=== PATIENT | female | born 1940 | race Two or more races ===

== ENCOUNTER 2017-04-25 09:40 | Inpatient (IN) | payer OTHER ==
[~2017-04-25] VITALS: Ht 154.9 cm; Wt 75.4 kg
[~2017-04-25 09:40] MED LIST: FAM20T PO; GABA-497 PO; HYDR-4663 PO; LISI40TA PO; METF-371 PO; SIMV-13; TRAZ50T PO
[2017-04-25] MEDS ORDERED: SODIUM CHLORIDE 0.9% 1,000 ML IV ONE (10:23)
[2017-04-25] MEDS ORDERED: cefTRIAXone 1GM/50ML D5W 50 ML IV ONE (10:30)
[2017-04-25] MEDS ORDERED: metroNIDAZOLE 500MG/100ML 100 ML IV ONE (10:30)
[2017-04-25 10:52] LABS: Basophils # (auto) 0 uL; Basophils % (auto) 0.2 % (0.0-2.0); CONDITION Y; Eosinophils # (auto) 0.1 uL; Hematocrit 37.2 % (36.0-46.0); Hemoglobin 12.5 g/dL (12.2-16.2); Lymphocytes # (auto) 1.1 uL; Lymphocytes % (auto) 11.9 % (10.0-50.0); Mean Corpuscular Hemoglobin 27.6 pg (28.0-32.0); Mean Corpuscular Hgb Conc. 33.7 g/dL (32.0-36.0); Mean Platelet Volume 8.7 fL (7.4-10.4); Monocytes # (auto) 0.4 uL; Monocytes % (auto) 4.8 % (0.0-12.0); Neutrophils # (auto) 7.3 uL; Neutrophils % (auto) 82.1 % (37.0-80.0); Platelet Count (auto) 264 10^3/uL (140-450); Red Cell Distribution Width 15.8 % (11.6-16.0); White Blood Cell 8.9 10^3/uL (4.4-10.8)
[2017-04-25 11:11] LABS: INR 0.98 (0.9-1.15); Partial Thromboplastin Time 34.9 sec (22.64-33.71); Prothrombin Time 10.7 sec (9.37-12.3)
[2017-04-25 11:15] LABS: Albumin 3.1 g/dL (3.4-5.0); Alkaline Phosphatase 81 U/L (45-117); Anion Gap 11 (5-15); Aspartate Aminotransferase 13 U/L (15-37); BUN/Creatinine Ratio 14.3; Bilirubin, Total 0.2 mg/dL (0.2-1.0); Blood Urea Nitrogen 13 mg/dL (7-18); Carbon Dioxide 19 mmol/L (21-32); Chloride 97 mmol/L (98-107); GFR African American 77 mL/min; GFR Non-African American 64 mL/min; Glucose 313 mg/dL (74-106); Potassium 4.3 mmol/L (3.5-5.1); Sodium 127 mmol/L (136-145); Total Protein 8.5 g/dL (6.4-8.2)
[2017-04-25 11:17] LABS: B-Type Natriuretic Peptide 106.38 pg/mL (0-100)
[2017-04-25 11:29] LABS: Temperature: 23.9 C (20.0-25.0)
[2017-04-25] MEDS ORDERED: MIRT15TA3 PO (12:31)
[2017-04-25] MEDS ORDERED: LOR05T PO (12:31)
[2017-04-25] MEDS ORDERED: FURO40TA4 PO (12:31)
[2017-04-25] MEDS ORDERED: CLO01T PO (12:31)
[2017-04-25] MEDS ORDERED: HYDR-4663 PO (12:31)
[2017-04-25] MEDS ORDERED: LEVO25TA6 PO (12:31)
[2017-04-25] MEDS ORDERED: LISI40TA PO (12:31)
[2017-04-25] MEDS ORDERED: METF-371 PO (12:31)
[2017-04-25] MEDS ORDERED: AML5T PO (12:31)
[2017-04-25] MEDS ORDERED: POTA10TA51 PO (12:31)
[2017-04-25] MEDS ORDERED: GLIP-116 PO (12:31)
[2017-04-25] MEDS ORDERED: LISI-646 PO (12:31)
[2017-04-25] MEDS ORDERED: DULO20CA PO (12:31)
[2017-04-25] MEDS ORDERED: DEXTROSE (50%) 50ML SYRG IV PRN (12:45)
[2017-04-25] MEDS ORDERED: HYDROcodone-ACET 5/325MG TAB PO PRN (12:45)
[2017-04-25] MEDS ORDERED: ONDANSETRON HCL 4 MG/2 ML VIAL IV PRN (12:45)
[2017-04-25] MEDS ORDERED: LEVOTHYROXINE SODIUM 25 MCG TAB PO ONE (13:15)
[2017-04-25] MEDS ORDERED: FAMOTIDINE 20 MG TAB PO ONE (13:15)
[2017-04-25] MEDS ORDERED: amLODIPine BESYLATE 5 MG TAB PO ONE (13:15)
[2017-04-25] MEDS: GABAPENTIN 300 MG CAP PO SCH ×2 (13:55→22:00)
[2017-04-25] MEDS: ENOXAPARIN SOD 40 MG/0.4 ML SYRINGE SC SCH (13:55)
[2017-04-25] MEDS: CLINDAMYCIN 600MG IV 50 ML IV SCH ×2 (13:55→22:01)
[2017-04-25 16:36] VITALS: BP 134/66
[2017-04-25] MEDS: InsuLIN REG 1unit/0.01ml Soln (100units/ml) SC SCH ×2 (17:00→22:01)
[2017-04-25] MEDS ORDERED: MORPHINE SULF INJ 2 MG/ML SYRINGE 1ML IV PRN (17:00)
[2017-04-25] MEDS: SODIUM CHLORIDE 0.9% 1,000 ML IV SCH (18:48)
[2017-04-25] MEDS: ACCU-CHEK COMFORT CURVE STRIP VI SCH ×2 (18:48→22:01)
[2017-04-25 20:00] VITALS: BP 136/69
[2017-04-25] MEDS ORDERED: traZODone HCL 50 MG TAB PO PRN (22:00)
[2017-04-25] MEDS: ATORVASTATIN 20 MG TAB PO SCH (22:01)
[2017-04-25 23:25] VITALS: BP 136/69
[2017-04-26] VITALS (7 sets, daily range): BP systolic 125–154; BP diastolic 63–80
[2017-04-26] MEDS: SODIUM CHLORIDE 0.9% 1,000 ML IV SCH ×2 (03:19→17:46)
[2017-04-26 05:42] LABS: Basophils # (auto) 0 uL; Basophils % (auto) 0.2 % (0.0-2.0); CONDITION Y; Eosinophils # (auto) 0.2 uL; Eosinophils % (auto) 2.3 % (0.0-7.0); Hemoglobin 12.9 g/dL (12.2-16.2); Lymphocytes % (auto) 29.4 % (10.0-50.0); Mean Corpuscular Hemoglobin 28.1 pg (28.0-32.0); Mean Corpuscular Hgb Conc. 33.9 g/dL (32.0-36.0); Mean Corpuscular Volume 82.8 fL (80.0-100.0); Monocytes # (auto) 0.7 uL; Monocytes % (auto) 10.4 % (0.0-12.0); Neutrophils # (auto) 3.8 uL; Neutrophils % (auto) 57.7 % (37.0-80.0); Platelet Count (auto) 262 10^3/uL (140-450); Red Cell Distribution Width 15.6 % (11.6-16.0); White Blood Cell 6.7 10^3/uL (4.4-10.8)
[2017-04-26] MEDS: GABAPENTIN 300 MG CAP PO SCH ×3 (06:00→21:54)
[2017-04-26 06:05] LABS: BUN/Creatinine Ratio 11.8; Calcium 8.4 mg/dL (8.5-10.1)
[2017-04-26] MEDS: CLINDAMYCIN 600MG IV 50 ML IV SCH ×3 (06:15→21:54)
[2017-04-26] MEDS: LEVOTHYROXINE SODIUM 25 MCG TAB PO SCH (06:43)
[2017-04-26] MEDS: ACCU-CHEK COMFORT CURVE STRIP VI SCH ×4 (06:43→21:54)
[2017-04-26] MEDS: InsuLIN REG 1unit/0.01ml Soln (100units/ml) SC SCH ×4 (06:43→21:54)
[2017-04-26 08:51] LABS: Urine Bilirubin Negative (Negative); Urine Blood TRACE /uL (Negative); Urine Color Yellow (Yellow); Urine Glucose Normal (Normal); Urine Ketone TRACE (Negative); Urine Nitrite Negative (Negative); Urine RBC 2 /hpf (0 - 4); Urine Squamous Epithelial Cell FEW /hpf (<5); Urine Urobilinogen Normal (Negative); Urine pH 7.5 (5.0-8.0)
[2017-04-26] MEDS: cefTRIAXone 1GM/50ML D5W 50 ML IV SCH (09:56)
[2017-04-26] MEDS: LISINOPRIL 20 MG TAB PO SCH (09:57)
[2017-04-26] MEDS: ENOXAPARIN SOD 40 MG/0.4 ML SYRINGE SC SCH (09:57)
[2017-04-26] MEDS ORDERED: amLODIPine BESYLATE 5 MG TAB PO SCH (10:00)
[2017-04-26] MEDS ORDERED: LISINOPRIL 20 MG TAB PO SCH (10:00)
[2017-04-26] MEDS: FAMOTIDINE 20 MG TAB PO SCH (10:03)
[2017-04-26] MEDS ORDERED: CLON0.1T PO (18:40)
[2017-04-26] MEDS ORDERED: INSR100KIT IV (18:40)
[2017-04-26] MEDS ORDERED: [UNRECOGNIZED DRUG - CODE] PO (18:40)
[2017-04-26] MEDS: ATORVASTATIN 20 MG TAB PO SCH (21:54)
[2017-04-27 04:52] VITALS: BP 172/83
[2017-04-27] MEDS: CLINDAMYCIN 600MG IV 50 ML IV SCH ×3 (05:32→21:41)
[2017-04-27] MEDS: GABAPENTIN 300 MG CAP PO SCH ×3 (05:32→21:50)
[2017-04-27] MEDS: SODIUM CHLORIDE 0.9% 1,000 ML IV SCH (06:28)
[2017-04-27] MEDS: ACCU-CHEK COMFORT CURVE STRIP VI SCH ×4 (06:46→21:51)
[2017-04-27] MEDS: InsuLIN REG 1unit/0.01ml Soln (100units/ml) SC SCH ×4 (06:46→21:52)
[2017-04-27] MEDS: LEVOTHYROXINE SODIUM 25 MCG TAB PO SCH (06:46)
[2017-04-27 08:00] VITALS: BP 165/86
[2017-04-27 09:00] VITALS: BP 165/86
[2017-04-27] MEDS: cefTRIAXone 1GM/50ML D5W 50 ML IV SCH (10:40)
[2017-04-27] MEDS: FAMOTIDINE 20 MG TAB PO SCH (10:43)
[2017-04-27] MEDS: ENOXAPARIN SOD 40 MG/0.4 ML SYRINGE SC SCH (10:44)
[2017-04-27] MEDS: LISINOPRIL 20 MG TAB PO SCH ×2 (10:44→21:51)
[2017-04-27 13:00] VITALS: BP 149/80
[2017-04-27] MEDS ORDERED: LISINOPRIL 20 MG TAB PO ONE (13:00)
[2017-04-27] MEDS ORDERED: DULoxetine HCL 30 MG CAP PO ONE (13:00)
[2017-04-27] MEDS ORDERED: metFORMIN HYDROCHLORIDE 500 MG TAB PO ONE (13:00)
[2017-04-27] MEDS: metFORMIN HYDROCHLORIDE 500 MG TAB PO SCH (18:06)
[2017-04-27 20:00] VITALS: BP 154/71
[2017-04-27 21:30] VITALS: BP 154/71
[2017-04-27] MEDS: ATORVASTATIN 20 MG TAB PO SCH (21:50)
[2017-04-27] MEDS: DULoxetine HCL 30 MG CAP PO SCH (21:50)
[2017-04-28 05:17] VITALS: BP 174/89
[2017-04-28] MEDS: GABAPENTIN 300 MG CAP PO SCH ×2 (06:00→14:00)
[2017-04-28] MEDS: CLINDAMYCIN 600MG IV 50 ML IV SCH ×2 (06:04→14:44)
[2017-04-28] MEDS: metFORMIN HYDROCHLORIDE 500 MG TAB PO SCH (06:40)
[2017-04-28] MEDS: LEVOTHYROXINE SODIUM 25 MCG TAB PO SCH (06:41)
[2017-04-28] MEDS: InsuLIN REG 1unit/0.01ml Soln (100units/ml) SC SCH ×2 (06:41→12:28)
[2017-04-28] MEDS: ACCU-CHEK COMFORT CURVE STRIP VI SCH ×2 (06:41→11:30)
[2017-04-28 09:00] VITALS: BP 130/74
[2017-04-28] MEDS: FAMOTIDINE 20 MG TAB PO SCH (09:57)
[2017-04-28] MEDS: cefTRIAXone 1GM/50ML D5W 50 ML IV SCH (09:57)
[2017-04-28] MEDS: DULoxetine HCL 30 MG CAP PO SCH (09:58)
[2017-04-28] MEDS: LISINOPRIL 20 MG TAB PO SCH (09:58)
[2017-04-28 13:00] VITALS: BP 152/82
== END 2017-04-28 16:30 | disposition home or self-care (01) | DRG 872 ==
LOC: ER 09:42 → OVERFLOW 09:43 → WEST WING 15:58
PROVIDERS: ADMIT Internal Medicine; ATTEND Internal Medicine
DX: A41.9 Sepsis, unspecified organism (principal); E87.1 Hypo-osmolality and hyponatremia; L03.115 Cellulitis of right lower limb; J98.11 Atelectasis; I50.9 Heart failure, unspecified; E03.9 Hypothyroidism, unspecified; I11.0 Hypertensive heart disease with heart failure; F32.9 Major depressive disorder, single episode, unspecified; F41.9 Anxiety disorder, unspecified; E11.42 Type 2 diabetes mellitus with diabetic polyneuropathy; E11.65 Type 2 diabetes mellitus with hyperglycemia; E86.0 Dehydration; I25.2 Old myocardial infarction; Z79.84 Long term (current) use of oral hypoglycemic drugs; Z79.899 Other long term (current) drug therapy; Z82.49 Family history of ischemic heart disease and other diseases of the circulatory system; Z88.6 Allergy status to analgesic agent; Z88.8 Allergy status to other drugs, medicaments and biological substances
CPT/HCPCS: 36415; 71010; 80048; 80053; 81001; 82962; 83036; 83880; 84443; 84484; 85025; 85610; 85730; 87040; 93005; 93970; 93971; 94761; 96365; 96367; J0696; J1815; J3490

== ENCOUNTER 2017-04-30 00:03 | Emergency (ER) | payer OTHER ==
[~2017-04-30] VITALS: Ht 157.5 cm; Wt 72.6 kg
[~2017-04-30 00:03] MED LIST changes: +AML5T PO; +CLON0.1T PO; +DULO20CA PO; -FAM20T PO; +FURO40TA4 PO; -GABA-497 PO; +GLIP-116 PO; -HYDR-4663 PO; +INSR100KIT IV; +LEVO25TA6 PO; +LOR05T PO; +MIRT15TA3 PO; +POTA10TA51 PO; -SIMV-13; -TRAZ50T PO; +[UNRECOGNIZED DRUG - CODE] PO
[2017-04-30 03:37] VITALS: BP 155/63
[2017-04-30] MEDS ORDERED: metroNIDAZOLE 500 MG TAB PO ONE (03:45)
[2017-04-30] MEDS ORDERED: SODIUM CHLORIDE 0.9% 1,000 ML IV ONE (03:45)
[2017-04-30 04:19] LABS: Basophils # (auto) 0 uL; Basophils % (auto) 0.4 % (0.0-2.0); CONDITION Y; Eosinophils # (auto) 0.2 uL; Hematocrit 38.7 % (36.0-46.0); Hemoglobin 13.2 g/dL (12.2-16.2); Lymphocytes # (auto) 1.8 uL; Lymphocytes % (auto) 28.1 % (10.0-50.0); Mean Corpuscular Hemoglobin 27.8 pg (28.0-32.0); Mean Corpuscular Hgb Conc. 34.1 g/dL (32.0-36.0); Mean Corpuscular Volume 81.6 fL (80.0-100.0); Mean Platelet Volume 7.9 fL (7.4-10.4); Monocytes # (auto) 0.6 uL; Monocytes % (auto) 9.6 % (0.0-12.0); Neutrophils # (auto) 3.8 uL; Neutrophils % (auto) 58.9 % (37.0-80.0); Platelet Count (auto) 356 10^3/uL (140-450); Red Cell Distribution Width 15.2 % (11.6-16.0); White Blood Cell 6.4 10^3/uL (4.4-10.8)
[2017-04-30 04:49] LABS: Albumin 3.4 g/dL (3.4-5.0); BUN/Creatinine Ratio 18.9; Calcium 8.8 mg/dL (8.5-10.1); Potassium 3.7 mmol/L (3.5-5.1)
[2017-04-30 04:50] LABS: Bilirubin, Total 0.2 mg/dL (0.2-1.0); Total Protein 8.8 g/dL (6.4-8.2)
== END 2017-04-30 05:50 | disposition home or self-care (01) ==
LOC: ER 00:12
DX: A09 Infectious gastroenteritis and colitis, unspecified (principal); L03.115 Cellulitis of right lower limb; E11.9 Type 2 diabetes mellitus without complications; I10 Essential (primary) hypertension; Z79.4 Long term (current) use of insulin; Z88.6 Allergy status to analgesic agent; Z88.8 Allergy status to other drugs, medicaments and biological substances
CPT/HCPCS: 36415; 80053; 85025; 94761; 96360

== ENCOUNTER → 2017-08-01 | Outpatient (CLI) | payer OTHER ==
[~2017-08-01] MED LIST changes: -LOR05T PO; +LORA-654 PO
[2017-08-01 07:28] LABS: Urine RBC None Seen /hpf (0 - 4)
[2017-08-01 07:44] LABS: Urine Bilirubin Negative (Negative); Urine Blood Negative /uL (Negative); Urine Color Yellow (Yellow); Urine Glucose Normal (Normal); Urine Ketone Negative (Negative); Urine Nitrite Negative (Negative); Urine Squamous Epithelial Cell FEW /hpf (<5); Urine Urobilinogen Normal (Negative); Urine pH 6.5 (5.0-8.0)
[2017-08-01 07:51] LABS: BUN/Creatinine Ratio 21.7; Calcium 8.6 mg/dL (8.5-10.1); Potassium 4.1 mmol/L (3.5-5.1)
== END | disposition home or self-care (01) ==
LOC: LAB 07:16
PROVIDERS: ATTEND Internal Medicine
DX: I10 Essential (primary) hypertension (principal); E11.9 Type 2 diabetes mellitus without complications; N39.0 Urinary tract infection, site not specified; E03.8 Other specified hypothyroidism
CPT/HCPCS: 36415; 80048; 81001; 83036; 84443

== ENCOUNTER → 2019-02-19 | Outpatient (CLI) | payer OTHER ==
[~2019-02-19] VITALS: Ht 154.9 cm; Wt 73.5 kg
[~2019-02-19] MED LIST changes: +ADENOSINE 62 MG in GIVE UN-DILUTED 0 ML IV ONE; -AML5T PO; -CLON0.1T PO; -DULO20CA PO; +ESCI20TA51 PO; +HYDR25TA4 PO; +INSDRIP SC; -INSR100KIT IV; +LEVEMIR SC; +SIMV-8 PO
[2019-02-19 10:40] VITALS: BP 134/62
== END | disposition home or self-care (01) ==
LOC: XYW 09:08
PROVIDERS: ATTEND Internal Medicine
DX: Z01.818 Encounter for other preprocedural examination (principal); I10 Essential (primary) hypertension
CPT/HCPCS: 78452; 93017; A9500; J0153

== ENCOUNTER → 2019-02-21 | Outpatient (CLI) | payer OTHER ==
[~2019-02-21] MED LIST changes: -ADENOSINE 62 MG in GIVE UN-DILUTED 0 ML IV ONE
== END | disposition home or self-care (01) ==
LOC: XYW 02-19 09:01
PROVIDERS: ATTEND Internal Medicine
DX: Z01.818 Encounter for other preprocedural examination (principal); I11.9 Hypertensive heart disease without heart failure; E11.9 Type 2 diabetes mellitus without complications
CPT/HCPCS: 93306

== ENCOUNTER 2019-04-19 07:41 | Day surgery (SDC) | payer OTHER ==
[2019-04-17 14:45] LABS: Basophils # (auto) 0 uL; Eosinophils # (auto) 0.1 uL; Eosinophils % (auto) 2.5 % (0.0-7.0); Hemoglobin 11.7 g/dL (12.2-16.2); Lymphocytes # (auto) 1.7 uL; Lymphocytes % (auto) 34.7 % (10.0-50.0); Mean Corpuscular Hemoglobin 27.5 pg (28.0-32.0); Mean Corpuscular Hgb Conc. 32.4 g/dL (32.0-36.0); Mean Corpuscular Volume 84.8 fL (80.0-100.0); Monocytes # (auto) 0.4 uL; Monocytes % (auto) 7.8 % (0.0-12.0); Neutrophils # (auto) 2.7 uL; Platelet Count (auto) 220 10^3/uL (140-450); Red Blood Cells 4.24 10^6/uL (4.0-5.20); Red Cell Distribution Width 15.1 % (11.8-14.3); White Blood Cell 4.9 10^3/uL (4.4-10.8)
[2019-04-17 14:54] LABS: INR 0.95 (0.9-1.15); Partial Thromboplastin Time 29.9 sec (23.64-32.05)
[2019-04-17 15:21] LABS: Albumin 3.8 g/dL (3.4-5.0); Calcium 9.1 mg/dL (8.5-10.1); Potassium 4.9 mmol/L (3.5-5.1)
[2019-04-17 15:24] LABS: BUN/Creatinine Ratio 19.7; Bilirubin, Total 0.3 mg/dL (0.2-1.0)
[2019-04-17 15:35] LABS: Urine Bacteria NONE SEEN /hpf (None Seen); Urine Blood Negative /uL (Negative); Urine Specific Gravity 1.008 (1.001-1.035); Urine WBC 7 /hpf (0 - 5)
[~2019-04-19] VITALS: Ht 154.9 cm; Wt 72.1 kg
[~2019-04-19 07:41] MED LIST changes: -FURO40TA4 PO; -GLIP-116 PO; +GLIP10TA9 PO; -LORA-654 PO; +LORA0.5T12 PO; -MIRT15TA3 PO; +MIRT1TAB38 PO; -POTA10TA51 PO
[2019-04-19] MEDS ORDERED: MIDAZOLAM HCL 1MG/1ML-2 ML VIAL ONE (09:30)
[2019-04-19] MEDS ORDERED: LIDOCAINE 2% (LOCAL ANESTH.) PF 5ml SDV ONE (09:31)
[2019-04-19] MEDS ORDERED: ETOMIDATE (2MG/ML) 20ML VIAL IV ONE (09:37)
[2019-04-19] MEDS ORDERED: CIPROFLOXACIN 400MG/200ML 200 ML IV ONE (09:48)
[2019-04-19] MEDS ORDERED: LIDOCAINE 1% (LOCAL ANESTH.) PF 5ml SDV ONE (10:00)
[2019-04-19] MEDS ORDERED: SUCCINYLCHOLINE CHLORIDE 20 MG/ML 10ML VIAL IV ONE (10:00)
[2019-04-19] MEDS ORDERED: ROCURONIUM 10MG/ML 10ML VIAL IV ONE (10:08)
[2019-04-19] MEDS ORDERED: HYDROmorphone HCL 2 MG/ML VL IV PRN (10:15)
[2019-04-19] MEDS ORDERED: ACCU-CHEK COMFORT CURVE STRIP VI ONE (10:15)
[2019-04-19] MEDS ORDERED: NALOXONE HCL 0.4 MG/ML VIAL IV PRN (10:15)
[2019-04-19] MEDS ORDERED: ONDANSETRON HCL 4 MG/2 ML VIAL IV ONE (10:15)
[2019-04-19] MEDS ORDERED: fentaNYL CITRATE 100 MCG/2 ML VL ONE (10:28)
[2019-04-19] MEDS ORDERED: NEOSTIGMINE 1 MG/ML INJ (10mg/10ML VIAL) ONE (10:40)
[2019-04-19] MEDS ORDERED: GLYCOPYRROLATE 0.2 MG/ML 1ML VIAL ONE (10:40)
[2019-04-19] MEDS ORDERED: ESMOLOL HCL 10 ML IV ONE (10:44)
[2019-04-19 12:52] VITALS: BP 137/61
== END 2019-04-19 13:05 | disposition home or self-care (01) ==
LOC: SUR 07:41
PROVIDERS: ATTEND Urology
DX: N32.0 Bladder-neck obstruction (principal); N34.3 Urethral syndrome, unspecified; I10 Essential (primary) hypertension; I25.10 Atherosclerotic heart disease of native coronary artery without angina pectoris; G47.33 Obstructive sleep apnea (adult) (pediatric); K21.9 Gastro-esophageal reflux disease without esophagitis; E11.9 Type 2 diabetes mellitus without complications; E66.8 Other obesity; M19.90 Unspecified osteoarthritis, unspecified site; F32.9 Major depressive disorder, single episode, unspecified; Z96.653 Presence of artificial knee joint, bilateral; Z68.30 Body mass index [BMI] 30.0-30.9, adult; Z79.4 Long term (current) use of insulin; Z79.84 Long term (current) use of oral hypoglycemic drugs; Z88.8 Allergy status to other drugs, medicaments and biological substances; Z79.899 Other long term (current) drug therapy
CPT/HCPCS: 36415; 52276; 71045; 80053; 81001; 82962; 85025; 85610; 85730; 93005; J0330; J0744; J2001; J2250; J3010

== ENCOUNTER → 2019-05-10 | Outpatient (CLI) | payer OTHER | END | disposition home or self-care (01) | LOC: LAB 12:48 | PROVIDERS: ATTEND Urology | DX: N39.0 Urinary tract infection, site not specified (principal) | CPT/HCPCS: 87086 ==

== ENCOUNTER → 2019-09-11 | Outpatient (CLI) | payer OTHER, MEDICARE ==
[2019-09-11 07:56] LABS: Basophils # (auto) 0.1 uL; Basophils % (auto) 1.6 % (0.0-2.0); Eosinophils # (auto) 0.2 uL; Eosinophils % (auto) 4.4 % (0.0-7.0); Hematocrit 36.4 % (36.0-46.0); Hemoglobin 12.1 g/dL (12.2-16.2); Lymphocytes # (auto) 1.2 uL; Lymphocytes % (auto) 32.4 % (10.0-50.0); Mean Corpuscular Hemoglobin 27.9 pg (28.0-32.0); Mean Corpuscular Hgb Conc. 33.1 g/dL (32.0-36.0); Mean Corpuscular Volume 84.2 fL (80.0-100.0); Monocytes # (auto) 0.3 uL; Monocytes % (auto) 8.6 % (0.0-12.0); Platelet Count (auto) 229 10^3/uL (140-450); Red Blood Cells 4.33 10^6/uL (4.0-5.20); Red Cell Distribution Width 14.8 % (11.8-14.3); White Blood Cell 3.8 10^3/uL (4.4-10.8)
[2019-09-11 08:21] LABS: Albumin 3.5 g/dL (3.4-5.0); Calcium 8.8 mg/dL (8.5-10.1)
[2019-09-11 08:29] LABS: BUN/Creatinine Ratio 12.9; Bilirubin, Total 0.3 mg/dL (0.2-1.0)
[2019-09-11 08:48] LABS: Urine Bacteria NONE SEEN /hpf (None Seen); Urine Blood Negative /uL (Negative); Urine Specific Gravity 1.005 (1.001-1.035); Urine WBC 1 /hpf (0 - 5)
== END | disposition home or self-care (01) ==
LOC: LAB 07:25
PROVIDERS: ATTEND Physician Assistant
DX: E11.9 Type 2 diabetes mellitus without complications (principal); E11.40 Type 2 diabetes mellitus with diabetic neuropathy, unspecified; E03.9 Hypothyroidism, unspecified; D63.8 Anemia in other chronic diseases classified elsewhere; E78.5 Hyperlipidemia, unspecified; I10 Essential (primary) hypertension
CPT/HCPCS: 36415; 80053; 80061; 81001; 83036; 84443; 85025

== ENCOUNTER → 2019-09-13 | Outpatient (CLI) | payer OTHER | END | disposition home or self-care (01) | LOC: LAB 10:14 | PROVIDERS: ATTEND Urology | DX: N39.0 Urinary tract infection, site not specified (principal) | CPT/HCPCS: 87086 ==

== ENCOUNTER 2020-06-26 06:10 | Day surgery (SDC) | payer OTHER ==
[2020-06-20 11:58] LABS: Basophils # (auto) 0 10 ^3/uL (0-0.2); Basophils % (auto) 0.6 % (0.0-2.0); Eosinophils # (auto) 0.1 10 ^3/uL (0-0.8); Eosinophils % (auto) 1.9 % (0.0-7.0); Hematocrit 35.7 % (36.0-46.0); Hemoglobin 11.6 g/dL (12.2-16.2); Lymphocytes % (auto) 38.2 % (10.0-50.0); Mean Corpuscular Hemoglobin 27.4 pg (28.0-32.0); Mean Corpuscular Hgb Conc. 32.5 g/dL (32.0-36.0); Mean Corpuscular Volume 84.3 fL (80.0-100.0); Monocytes # (auto) 0.5 10 ^3/uL (0-1.3); Monocytes % (auto) 8.9 % (0.0-12.0); Neutrophils # (auto) 2.7 10 ^3/uL (1.6-8.6); Neutrophils % (auto) 50.4 % (37.0-80.0); Platelet Count (auto) 234 10^3/uL (140-450); Red Blood Cells 4.23 10^6/uL (4.0-5.20); Red Cell Distribution Width 14.8 % (11.8-14.3); White Blood Cell 5.3 10^3/uL (4.4-10.8)
[2020-06-20 12:27] LABS: Potassium 3.8 mmol/L (3.5-5.1)
[2020-06-20 12:28] LABS: Urine Bacteria NONE SEEN /hpf (None Seen); Urine Blood Negative /uL (Negative); Urine WBC 6 /hpf (0 - 5)
[2020-06-20 12:29] LABS: INR 0.97 (0.9-1.15); Partial Thromboplastin Time 28.8 sec (23.0-31.2)
[2020-06-20 12:36] LABS: Albumin 3.6 g/dL (3.4-5.0); Bilirubin, Total 0.2 mg/dL (0.2-1.0); Calcium 9.5 mg/dL (8.5-10.1); Total Protein 8.1 g/dL (6.4-8.2)
[~2020-06-26] VITALS: Ht 157.5 cm; Wt 71.7 kg
[~2020-06-26 06:10] MED LIST changes: +BACL20TA PO; +BET25T PO; +GABA300C10 PO; -LISI40TA PO; +LISI40TA11 PO; -LORA0.5T12 PO; +LORA0.5T20 PO; +ONDA-143 PO; +POTA1TAB61 PO; +PROC10TA2 PO; -[UNRECOGNIZED DRUG - CODE] PO
[2020-06-26] MEDS ORDERED: ceFAZolin 1GM/50ML 50 ML IV ONE (07:01)
[2020-06-26] MEDS ORDERED: MIDAZOLAM HCL 1MG/1ML-2 ML VIAL ONE (07:48)
[2020-06-26] MEDS ORDERED: MEPERIDINE HCL (25 MG/ML) 1ML VIAL ONE (07:48)
[2020-06-26] MEDS ORDERED: fentaNYL CITRATE 100 MCG/2 ML VL ONE (07:48)
[2020-06-26] MEDS ORDERED: DexAMETHasone SOD PHOS 10MG/1ML VIAL INJ ONE (08:23)
[2020-06-26] MEDS ORDERED: ACCU-CHEK COMFORT CURVE STRIP VI ONE (08:45)
[2020-06-26] MEDS ORDERED: ONDANSETRON HCL 4 MG/2 ML VIAL IV PRN (08:45)
[2020-06-26] MEDS ORDERED: MORPHINE SULFATE 4 MG/ML SYR/VIAL IV PRN (08:45)
[2020-06-26] MEDS ORDERED: ePHEDrine SULFATE 50 MG/ML AMP IV PRN (08:45)
[2020-06-26] MEDS ORDERED: LABETALOL HCL 5 MG/ML 4ML SYRINGE IV PRN (08:45)
[2020-06-26] MEDS ORDERED: MIDAZOLAM HCL 1MG/1ML-2 ML VIAL IV PRN (08:45)
[2020-06-26] MEDS ORDERED: PROPOFOL 10 MG/ML 20 ML IV ONE (09:10)
[2020-06-26 09:27] VITALS: BP 174/69
== END 2020-06-26 09:35 | disposition home or self-care (01) ==
LOC: SUR 06:10
PROVIDERS: ATTEND Urology
DX: R32 Unspecified urinary incontinence (principal); E66.9 Obesity, unspecified; E11.9 Type 2 diabetes mellitus without complications; M19.90 Unspecified osteoarthritis, unspecified site; Z20.828 Contact with and (suspected) exposure to other viral communicable diseases; Z90.710 Acquired absence of both cervix and uterus; Z86.718 Personal history of other venous thrombosis and embolism; Z68.28 Body mass index [BMI] 28.0-28.9, adult
CPT/HCPCS: 36415; 51715; 72170; 76000; 80053; 81001; 82962; 85025; 85610; 85730; C1769; J0690; J1100; J2175; J2250; J2704; J3010; J7030; L8606; U0003

== ENCOUNTER → 2020-08-25 | Outpatient (CLI) | payer OTHER ==
[2020-08-25 07:30] LABS: Basophils # (auto) 0 10 ^3/uL (0-0.2); Basophils % (auto) 0.6 % (0.0-2.0); Eosinophils # (auto) 0.1 10 ^3/uL (0-0.8); Eosinophils % (auto) 1.2 % (0.0-7.0); Hematocrit 36.9 % (36.0-46.0); Hemoglobin 11.9 g/dL (12.2-16.2); Lymphocytes # (auto) 1.5 10 ^3/uL (0.4-5.4); Lymphocytes % (auto) 27.1 % (10.0-50.0); Mean Corpuscular Hemoglobin 26.8 pg (28.0-32.0); Mean Corpuscular Hgb Conc. 32.3 g/dL (32.0-36.0); Mean Corpuscular Volume 82.9 fL (80.0-100.0); Monocytes # (auto) 0.4 10 ^3/uL (0-1.3); Monocytes % (auto) 8.2 % (0.0-12.0); Neutrophils # (auto) 3.5 10 ^3/uL (1.6-8.6); Neutrophils % (auto) 62.9 % (37.0-80.0); Platelet Count (auto) 248 10^3/uL (140-450); Red Blood Cells 4.45 10^6/uL (4.0-5.20); Red Cell Distribution Width 14.7 % (11.8-14.3); White Blood Cell 5.5 10^3/uL (4.4-10.8)
[2020-08-25 08:10] LABS: Albumin 3.4 g/dL (3.4-5.0); Potassium 3.9 mmol/L (3.5-5.1)
[2020-08-25 08:15] LABS: BUN/Creatinine Ratio 17.7; Bilirubin, Total 0.4 mg/dL (0.2-1.0)
== END | disposition home or self-care (01) ==
LOC: LAB 07:05
PROVIDERS: ATTEND Physician Assistant
DX: I10 Essential (primary) hypertension (principal); E11.21 Type 2 diabetes mellitus with diabetic nephropathy; E11.42 Type 2 diabetes mellitus with diabetic polyneuropathy; D63.8 Anemia in other chronic diseases classified elsewhere
CPT/HCPCS: 36415; 80053; 80061; 82043; 83036; 85025

== ENCOUNTER → 2020-10-16 | Outpatient (CLI) | payer OTHER | END | disposition home or self-care (01) | LOC: LAB 13:34 | PROVIDERS: ATTEND Urology | DX: N39.0 Urinary tract infection, site not specified (principal) | CPT/HCPCS: 87086; 87088; 87186 ==

== ENCOUNTER → 2021-03-27 | Outpatient (CLI) | payer OTHER, MEDICARE ==
[~2021-03-27] MED LIST changes: +ESCI-34 PO; -ESCI20TA51 PO
[2021-03-27 11:27] LABS: Basophils # (auto) 0 10 ^3/uL (0-0.2); Basophils % (auto) 0.7 % (0.0-2.0); Eosinophils # (auto) 0.1 10 ^3/uL (0-0.8); Eosinophils % (auto) 1.3 % (0.0-7.0); Hematocrit 33.7 % (36.0-46.0); Lymphocytes # (auto) 1.6 10 ^3/uL (0.4-5.4); Lymphocytes % (auto) 29.1 % (10.0-50.0); Mean Corpuscular Hemoglobin 27.3 pg (28.0-32.0); Mean Corpuscular Hgb Conc. 32.8 g/dL (32.0-36.0); Mean Corpuscular Volume 83.3 fL (80.0-100.0); Monocytes # (auto) 0.5 10 ^3/uL (0-1.3); Monocytes % (auto) 8.7 % (0.0-12.0); Neutrophils # (auto) 3.3 10 ^3/uL (1.6-8.6); Neutrophils % (auto) 60.2 % (37.0-80.0); Platelet Count (auto) 226 10^3/uL (140-450); Red Blood Cells 4.04 10^6/uL (4.0-5.20); Red Cell Distribution Width 14.7 % (11.8-14.3); White Blood Cell 5.5 10^3/uL (4.4-10.8)
[2021-03-27 13:29] LABS: Potassium 4.5 mmol/L (3.5-5.1)
[2021-03-27 13:34] LABS: Albumin 3.2 g/dL (3.4-5.0)
[2021-03-27 13:36] LABS: Bilirubin, Total 0.5 mg/dL (0.2-1.0); Total Protein 7.5 g/dL (6.4-8.2)
== END | disposition home or self-care (01) ==
LOC: LAB 10:49
PROVIDERS: ATTEND Nurse Practitioner Family
DX: Z01.812 Encounter for preprocedural laboratory examination (principal); Z01.818 Encounter for other preprocedural examination; I10 Essential (primary) hypertension
CPT/HCPCS: 36415; 80053; 85025

== ENCOUNTER 2021-04-17 07:54 | Inpatient (IN) | payer OTHER ==
[~2021-04-17] VITALS: Ht 157.5 cm; Wt 64.7 kg
[2021-04-17 08:22] LABS: Basophils # (auto) 0 10 ^3/uL (0-0.2); Basophils % (auto) 0.9 % (0.0-2.0); Eosinophils # (auto) 0.1 10 ^3/uL (0-0.8); Eosinophils % (auto) 3.3 % (0.0-7.0); Hematocrit 35.4 % (36.0-46.0); Lymphocytes # (auto) 1.3 10 ^3/uL (0.4-5.4); Lymphocytes % (auto) 29.1 % (10.0-50.0); Mean Corpuscular Hemoglobin 27.8 pg (28.0-32.0); Mean Corpuscular Hgb Conc. 33.8 g/dL (32.0-36.0); Mean Corpuscular Volume 82.3 fL (80.0-100.0); Monocytes # (auto) 0.4 10 ^3/uL (0-1.3); Monocytes % (auto) 8.9 % (0.0-12.0); Neutrophils # (auto) 2.6 10 ^3/uL (1.6-8.6); Neutrophils % (auto) 57.8 % (37.0-80.0); Red Cell Distribution Width 14.8 % (11.8-14.3); White Blood Cell 4.5 10^3/uL (4.4-10.8)
[2021-04-17 08:42] LABS: Albumin 3.6 g/dL (3.4-5.0); Anion Gap 5 (5-15); Blood Urea Nitrogen 12 mg/dL (7-18); Calcium 8.7 mg/dL (8.5-10.1); Carbon Dioxide 27 mmol/L (21-32); Chloride 102 mmol/L (98-107); Glucose 206 mg/dL (74-106); Sodium 134 mmol/L (136-145)
[2021-04-17] MEDS ORDERED: NITROGLYCERIN 0.4 MG SL TAB SL ONE (08:45)
[2021-04-17] MEDS ORDERED: ASPirin 81 mg TAB PO ONE (08:45)
[2021-04-17 08:47] LABS: Alanine Aminotransferase 21 U/L (13-56); Alkaline Phosphatase 78 U/L (45-117); Aspartate Aminotransferase 22 U/L (15-37); BUN/Creatinine Ratio 21.1; Bilirubin, Total 0.4 mg/dL (0.2-1.0); GFR African American 131 mL/min; GFR Non-African American 108 mL/min; Total Protein 8.4 g/dL (6.4-8.2)
[2021-04-17 09:04] LABS: Urine Bacteria NONE SEEN /hpf (None Seen); Urine Blood Negative /uL (Negative); Urine Specific Gravity 1.005 (1.001-1.035); Urine WBC 1 /hpf (0 - 5)
[2021-04-17] MEDS ORDERED: NITROGLYCERIN 0.4 MG SL TAB SL PRN (11:00)
[2021-04-17] MEDS ORDERED: MORPHINE SULF INJ 2 MG/ML SYRINGE 1ML IV PRN (11:00)
[2021-04-17] MEDS ORDERED: traMADol HCL 50 MG TAB PO PRN (11:45)
[2021-04-17] MEDS ORDERED: ACETAMINOPHEN 500 MG TAB PO PRN (11:45)
[2021-04-17] MEDS: SODIUM CHLORIDE 0.9% 1,000 ML IV SCH (11:45)
[2021-04-17] MEDS ORDERED: DEXTROSE (50%) 50ML SYRG IV PRN (11:45)
[2021-04-17] MEDS ORDERED: ONDANSETRON HCL 4 MG/2 ML VIAL IV PRN (11:45)
[2021-04-17] MEDS ORDERED: LACTULOSE 20Gm/30ML SOLN PO PRN (11:45)
[2021-04-17 13:16] VITALS: BP 141/67
[2021-04-17] MEDS ORDERED: IRBE150T49 PO (13:52)
[2021-04-17] MEDS ORDERED: CLON-499 PO (13:54)
[2021-04-17 14:24] VITALS: BP 142/56
[2021-04-17] MEDS: ACCU-CHEK COMFORT CURVE STRIP VI SCH ×2 (17:00→22:19)
[2021-04-17 17:20] VITALS: BP 156/73
[2021-04-17] MEDS: InsuLIN REG 1unit/0.01ml Soln (100units/ml) SC SCH ×2 (17:40→22:00)
[2021-04-17 22:00] VITALS: BP 153/68
[2021-04-17] MEDS ORDERED: ATORVASTATIN 20 MG TAB PO SCH (22:00)
[2021-04-17] MEDS: ATORVASTATIN 20 MG TAB PO SCH (22:17)
[2021-04-18] MEDS: SODIUM CHLORIDE 0.9% 1,000 ML IV SCH (01:05)
[2021-04-18 05:00] VITALS: BP 164/71
[2021-04-18] MEDS: InsuLIN REG 1unit/0.01ml Soln (100units/ml) SC SCH ×4 (06:20→21:38)
[2021-04-18] MEDS: ACCU-CHEK COMFORT CURVE STRIP VI SCH ×4 (06:25→21:28)
[2021-04-18 06:55] LABS: Cholesterol 134 mg/dL (< 200); HDL Cholesterol 53 mg/dL (40-59); LDL Cholesterol 72 mg/dL (< 100); Triglycerides 98 mg/dL (< 150)
[2021-04-18 09:00] VITALS: BP 153/69
[2021-04-18] MEDS: ENOXAPARIN SOD 40 MG/0.4 ML SYRINGE SC SCH (09:47)
[2021-04-18] MEDS: ASPirin 81 mg TAB PO SCH (09:47)
[2021-04-18] MEDS: NITROGLYCERIN 0.2MG/HR TOPICAL PATCH TD SCH (10:00)
[2021-04-18 11:37] LABS: Potassium 3.6 mmol/L (3.5-5.1)
[2021-04-18 11:40] LABS: BUN/Creatinine Ratio 24.5; Calcium 8.8 mg/dL (8.5-10.1); Magnesium 1.8 mg/dL (1.6-2.6)
[2021-04-18 13:00] VITALS: BP 166/70
[2021-04-18] MEDS ORDERED: METOPROLOL TARTRATE 1MG/1ML-5ML VIAL IV ONE (13:15)
[2021-04-18] MEDS ORDERED: NIFEdipine ER 30 MG TAB PO ONE (16:30)
[2021-04-18] MEDS ORDERED: hydrALAZINE HCL 20 MG/ML VL IV ONE (16:45)
[2021-04-18] MEDS ORDERED: hydrALAZINE HCL 20 MG/ML VL IV PRN (17:00)
[2021-04-18 17:36] VITALS: BP 184/81
[2021-04-18] MEDS: ATORVASTATIN 20 MG TAB PO SCH (21:27)
[2021-04-18 22:00] VITALS: BP 139/72
[2021-04-18] MEDS ORDERED: MIRTAZAPINE 30 MG TAB PO SCH (22:00)
[2021-04-18] MEDS ORDERED: LORazepam 0.5 MG TAB PO SCH (22:00)
[2021-04-18] MEDS: hydrALAZINE HCL 25 MG TAB PO SCH (22:07)
[2021-04-19 05:00] VITALS: BP 117/54
[2021-04-19] MEDS: ACCU-CHEK COMFORT CURVE STRIP VI SCH ×2 (06:11→11:47)
[2021-04-19] MEDS: InsuLIN REG 1unit/0.01ml Soln (100units/ml) SC SCH ×2 (06:19→11:46)
[2021-04-19 09:00] VITALS: BP 118/57
[2021-04-19] MEDS ORDERED: NIFE1TAB31 PO (09:16)
[2021-04-19] MEDS: ASPirin 81 mg TAB PO SCH (09:28)
[2021-04-19] MEDS: ENOXAPARIN SOD 40 MG/0.4 ML SYRINGE SC SCH (09:29)
[2021-04-19] MEDS: NITROGLYCERIN 0.2MG/HR TOPICAL PATCH TD SCH (09:30)
[2021-04-19] MEDS: hydrALAZINE HCL 25 MG TAB PO SCH (09:30)
[2021-04-19] MEDS ORDERED: NIFEdipine ER 30 MG TAB PO SCH ×2 (10:00)
[2021-04-19 13:00] VITALS: BP 122/72
[2021-04-19 13:48] VITALS: BP 127/67
== END 2021-04-19 14:40 | disposition home or self-care (01) | DRG 313 ==
LOC: ER 07:54 → TELE 10:46 → TELE-CENTR 12:25
PROVIDERS: ADMIT Internal Medicine; ATTEND Internal Medicine
DX: R07.89 Other chest pain (principal); E87.1 Hypo-osmolality and hyponatremia; D64.9 Anemia, unspecified; E11.65 Type 2 diabetes mellitus with hyperglycemia; E66.9 Obesity, unspecified; E78.5 Hyperlipidemia, unspecified; R00.1 Bradycardia, unspecified; I10 Essential (primary) hypertension; I44.7 Left bundle-branch block, unspecified; Z82.49 Family history of ischemic heart disease and other diseases of the circulatory system; Z90.710 Acquired absence of both cervix and uterus; Z68.20 Body mass index [BMI] 20.0-20.9, adult; Z20.822 Contact with and (suspected) exposure to COVID-19
CPT/HCPCS: 36415; 71045; 80048; 80053; 80061; 81001; 82550; 82607; 82962; 83036; 83735; 83880; 84100; 84443; 84484; 85025; 85049; 85652; 86141; 87426; 93005; 93306; 93886; 96360; G0378; J1815

== ENCOUNTER → 2021-05-15 | Outpatient (CLI) | payer OTHER ==
[~2021-05-15] MED LIST changes: +IRBE150T49 PO; -LISI40TA11 PO; -LORA0.5T20 PO; +NIFE1TAB31 PO; -ONDA-143 PO; -PROC10TA2 PO
[2021-05-15 07:51] LABS: Urine WBC None Seen /hpf (0 - 5)
[2021-05-15 07:58] LABS: Basophils # (auto) 0 10 ^3/uL (0-0.2); Basophils % (auto) 0.8 % (0.0-2.0); Eosinophils # (auto) 0.1 10 ^3/uL (0-0.8); Eosinophils % (auto) 3.2 % (0.0-7.0); Hematocrit 33.7 % (36.0-46.0); Hemoglobin 11.3 g/dL (12.2-16.2); Lymphocytes # (auto) 1.2 10 ^3/uL (0.4-5.4); Lymphocytes % (auto) 25.5 % (10.0-50.0); Mean Corpuscular Hemoglobin 27.9 pg (28.0-32.0); Mean Corpuscular Hgb Conc. 33.5 g/dL (32.0-36.0); Mean Corpuscular Volume 83.1 fL (80.0-100.0); Monocytes # (auto) 0.4 10 ^3/uL (0-1.3); Monocytes % (auto) 8.9 % (0.0-12.0); Neutrophils # (auto) 2.8 10 ^3/uL (1.6-8.6); Neutrophils % (auto) 61.6 % (37.0-80.0); Nucleated Red Blood Cells % 0.1 %; Red Blood Cells 4.05 10^6/uL (4.0-5.20); Red Cell Distribution Width 14.6 % (11.8-14.3); White Blood Cell 4.6 10^3/uL (4.4-10.8)
[2021-05-15 08:02] LABS: Urine Bacteria NONE SEEN /hpf (None Seen); Urine Blood Negative /uL (Negative); Urine Specific Gravity 1.005 (1.001-1.035)
[2021-05-15 08:23] LABS: Albumin 3.4 g/dL (3.4-5.0); Calcium 9.2 mg/dL (8.5-10.1)
[2021-05-15 08:29] LABS: BUN/Creatinine Ratio 25.4; Bilirubin, Total 0.3 mg/dL (0.2-1.0); Total Protein 8.2 g/dL (6.4-8.2)
== END | disposition home or self-care (01) ==
LOC: LAB 07:37
PROVIDERS: ATTEND Student in an Organized Health Care Education/Training Program
DX: E11.9 Type 2 diabetes mellitus without complications (principal); I10 Essential (primary) hypertension; E03.9 Hypothyroidism, unspecified
CPT/HCPCS: 36415; 80053; 80061; 81001; 82043; 83036; 84443; 85025

== ENCOUNTER → 2021-07-15 | Outpatient (CLI) | payer OTHER ==
[2021-07-15 08:05] LABS: Urine Bacteria NONE SEEN /hpf (None Seen); Urine Blood Negative /uL (Negative); Urine Specific Gravity 1.004 (1.001-1.035); Urine WBC 1 /hpf (0 - 5)
[2021-07-15 08:10] LABS: Basophils # (auto) 0 10 ^3/uL (0-0.2); Basophils % (auto) 0.9 % (0.0-2.0); Eosinophils # (auto) 0.2 10 ^3/uL (0-0.8); Eosinophils % (auto) 3.9 % (0.0-7.0); Hematocrit 33.6 % (36.0-46.0); Hemoglobin 11.2 g/dL (12.2-16.2); Lymphocytes # (auto) 1.2 10 ^3/uL (0.4-5.4); Lymphocytes % (auto) 28.5 % (10.0-50.0); Mean Corpuscular Hemoglobin 27.7 pg (28.0-32.0); Mean Corpuscular Hgb Conc. 33.4 g/dL (32.0-36.0); Mean Corpuscular Volume 82.9 fL (80.0-100.0); Monocytes # (auto) 0.3 10 ^3/uL (0-1.3); Monocytes % (auto) 7.8 % (0.0-12.0); Neutrophils # (auto) 2.5 10 ^3/uL (1.6-8.6); Neutrophils % (auto) 58.9 % (37.0-80.0); Red Blood Cells 4.05 10^6/uL (4.0-5.20); Red Cell Distribution Width 14.7 % (11.8-14.3); White Blood Cell 4.3 10^3/uL (4.4-10.8)
[2021-07-15 08:24] LABS: Albumin 3.6 g/dL (3.4-5.0); Calcium 9.1 mg/dL (8.5-10.1); Potassium 3.9 mmol/L (3.5-5.1)
[2021-07-15 08:27] LABS: BUN/Creatinine Ratio 30.6; Bilirubin, Total 0.4 mg/dL (0.2-1.0); Total Protein 7.9 g/dL (6.4-8.2)
== END | disposition home or self-care (01) ==
LOC: LAB 07:30
PROVIDERS: ATTEND Nurse Practitioner Family
DX: E11.42 Type 2 diabetes mellitus with diabetic polyneuropathy (principal); I10 Essential (primary) hypertension; E78.5 Hyperlipidemia, unspecified; E03.9 Hypothyroidism, unspecified
CPT/HCPCS: 36415; 80053; 80061; 81001; 82043; 82607; 83036; 84443; 85025; 87086

== ENCOUNTER 2021-08-19 08:02 | Day surgery (SDC) | payer OTHER, MEDICAID ==
[~2021-08-19] VITALS: Ht 157.5 cm; Wt 67.1 kg
[~2021-08-19 08:02] MED LIST changes: +ASPI-498 PO; -BACL20TA PO; +LORA0.5T20 PO; +OXYB10TA14 PO
[2021-08-19] MEDS ORDERED: fentaNYL CITRATE 100 MCG/2 ML VL ONE (09:40)
[2021-08-19] MEDS ORDERED: SODIUM CHL 0.9% 0 ML ONE (09:40)
[2021-08-19] MEDS ORDERED: ANGIOMAX 250 MG VIAL IV ONE (09:40)
[2021-08-19] MEDS ORDERED: MIDAZOLAM HCL 2MG/2ML 2ml VIAL (1mg/ml) ONE (09:40)
[2021-08-19] MEDS ORDERED: IODIXANOL 320MG/ML 100ML BTL IV ONE (09:41)
[2021-08-19] MEDS ORDERED: HEPARIN SODIUM (PORCINE) 5000 UNITS/ML 1ML VIAL ONE (09:41)
[2021-08-19] MEDS ORDERED: LIDOCAINE 2%HCL (LOCAL ANESTH.) INJ 20ML MDV ONE (09:41)
[2021-08-19] MEDS ORDERED: VERAPAMIL 2.5MG/ML INJ 2ML VIAL IV ONE (09:41)
[2021-08-19] MEDS ORDERED: NIFE1TAB36 PO (11:44)
== END 2021-08-19 14:15 | disposition home or self-care (01) ==
LOC: CATH 08:02
PROVIDERS: ATTEND Internal Medicine
DX: R94.39 Abnormal result of other cardiovascular function study (principal); Z90.710 Acquired absence of both cervix and uterus; Z86.73 Personal history of transient ischemic attack (TIA), and cerebral infarction without residual deficits; Z98.890 Other specified postprocedural states; Z79.899 Other long term (current) drug therapy; Z20.822 Contact with and (suspected) exposure to COVID-19
CPT/HCPCS: 93458; C1769; C1887; C1894; J1644; Q9967; U0003; 99152; J2250

== ENCOUNTER → 2021-09-15 | Outpatient (CLI) | payer OTHER, MEDICAID ==
[~2021-09-15] MED LIST changes: -NIFE1TAB31 PO; +NIFE1TAB36 PO
[2021-09-15 14:37] LABS: Basophils # (auto) 0 10 ^3/uL (0-0.2); Basophils % (auto) 0.8 % (0.0-2.0); Eosinophils # (auto) 0.1 10 ^3/uL (0-0.8); Eosinophils % (auto) 2.6 % (0.0-7.0); Hemoglobin 11.1 g/dL (12.2-16.2); Lymphocytes # (auto) 1.5 10 ^3/uL (0.4-5.4); Lymphocytes % (auto) 34.1 % (10.0-50.0); Mean Corpuscular Hemoglobin 27.4 pg (28.0-32.0); Mean Corpuscular Hgb Conc. 32.6 g/dL (32.0-36.0); Monocytes # (auto) 0.5 10 ^3/uL (0-1.3); Monocytes % (auto) 10.6 % (0.0-12.0); Neutrophils # (auto) 2.3 10 ^3/uL (1.6-8.6); Neutrophils % (auto) 51.9 % (37.0-80.0); Nucleated Red Blood Cells % 0.1 %; Red Blood Cells 4.04 10^6/uL (4.0-5.20); Red Cell Distribution Width 14.1 % (11.8-14.3); White Blood Cell 4.5 10^3/uL (4.4-10.8)
[2021-09-15 14:51] LABS: Urine Blood Negative /uL (Negative); Urine Specific Gravity 1.013 (1.001-1.035)
[2021-09-15 14:56] LABS: INR 1.01 (0.9-1.15); Partial Thromboplastin Time 30.2 sec (23.6-33.0)
[2021-09-15 15:21] LABS: Albumin 3.5 g/dL (3.4-5.0); Calcium 8.5 mg/dL (8.5-10.1); Potassium 4.5 mmol/L (3.5-5.1)
[2021-09-15 15:23] LABS: BUN/Creatinine Ratio 25.4
[2021-09-15 15:36] LABS: Bilirubin, Total 0.2 mg/dL (0.2-1.0); Total Protein 7.3 g/dL (6.4-8.2)
== END | disposition home or self-care (01) ==
LOC: LAB 14:25
PROVIDERS: ATTEND Specialist
DX: Z01.812 Encounter for preprocedural laboratory examination (principal); H25.11 Age-related nuclear cataract, right eye; Z79.01 Long term (current) use of anticoagulants
CPT/HCPCS: 36415; 80053; 81003; 85025; 85610; 85730

== ENCOUNTER → 2021-11-11 | Outpatient (CLI) | payer OTHER, MEDICAID ==
[2021-11-11 11:28] LABS: Basophils # (auto) 0 10 ^3/uL (0-0.2); Basophils % (auto) 1.1 % (0.0-2.0); Eosinophils # (auto) 0.1 10 ^3/uL (0-0.8); Hematocrit 32.7 % (36.0-46.0); Lymphocytes % (auto) 26.2 % (10.0-50.0); Mean Corpuscular Hgb Conc. 33.6 g/dL (32.0-36.0); Mean Corpuscular Volume 83.4 fL (80.0-100.0); Monocytes # (auto) 0.4 10 ^3/uL (0-1.3); Monocytes % (auto) 10.3 % (0.0-12.0); Neutrophils # (auto) 2.2 10 ^3/uL (1.6-8.6); Neutrophils % (auto) 59.4 % (37.0-80.0); Red Blood Cells 3.93 10^6/uL (4.0-5.20); Red Cell Distribution Width 14.3 % (11.8-14.3); White Blood Cell 3.8 10^3/uL (4.4-10.8)
[2021-11-11 11:33] LABS: INR 1.02 (0.9-1.15); Partial Thromboplastin Time 32.5 sec (23.6-33.0); Urine Blood Negative /uL (Negative); Urine Specific Gravity 1.008 (1.001-1.035)
[2021-11-11 11:46] LABS: Potassium 4.2 mmol/L (3.5-5.1)
[2021-11-11 11:55] LABS: BUN/Creatinine Ratio 21.4
[2021-11-11 11:56] LABS: Albumin 3.4 g/dL (3.4-5.0); Bilirubin, Total 0.3 mg/dL (0.2-1.0); Total Protein 7.8 g/dL (6.4-8.2)
== END | disposition home or self-care (01) ==
LOC: LAB 09:10
PROVIDERS: ATTEND Specialist
DX: Z01.812 Encounter for preprocedural laboratory examination (principal); H25.12 Age-related nuclear cataract, left eye; D68.9 Coagulation defect, unspecified; Z79.01 Long term (current) use of anticoagulants
CPT/HCPCS: 36415; 80053; 81003; 85025; 85610; 85730

== ENCOUNTER → 2022-05-27 | Outpatient (CLI) | payer OTHER, MEDICAID ==
[2022-05-27 13:28] LABS: Basophils # (auto) 0 10 ^3/uL (0-0.2); Basophils % (auto) 0.9 % (0.0-2.0); Eosinophils # (auto) 0.1 10 ^3/uL (0-0.8); Lymphocytes # (auto) 1.3 10 ^3/uL (0.4-5.4); Monocytes # (auto) 0.5 10 ^3/uL (0-1.3)
[2022-05-27 13:30] LABS: Eosinophils % (auto) 2.6 % (0.0-7.0); Hematocrit 35.7 % (36.0-46.0); Hemoglobin 11.6 g/dL (12.2-16.2); Lymphocytes % (auto) 26.7 % (10.0-50.0); Mean Corpuscular Hemoglobin 26.8 pg (28.0-32.0); Mean Corpuscular Hgb Conc. 32.6 g/dL (32.0-36.0); Mean Corpuscular Volume 82.3 fL (80.0-100.0); Monocytes % (auto) 9.3 % (0.0-12.0); Neutrophils % (auto) 60.5 % (37.0-80.0); Red Blood Cells 4.33 10^6/uL (4.0-5.20); Red Cell Distribution Width 14.7 % (11.8-14.3)
[2022-05-27 13:39] LABS: INR 0.98 (0.9-1.15); Partial Thromboplastin Time 32.6 sec (24.6-33.4)
[2022-05-27 13:58] LABS: Albumin 3.7 g/dL (3.4-5.0); Potassium 4.3 mmol/L (3.5-5.1)
[2022-05-27 14:02] LABS: BUN/Creatinine Ratio 22.8; Bilirubin, Total 0.3 mg/dL (0.2-1.0); Total Protein 8.4 g/dL (6.4-8.2)
[2022-05-27 14:46] LABS: Urine Bacteria NONE SEEN /hpf (None Seen); Urine Blood Negative /uL (Negative); Urine Specific Gravity 1.006 (1.001-1.035); Urine WBC 1 /hpf (0 - 5)
== END | disposition home or self-care (01) ==
LOC: LAB 13:13
PROVIDERS: ATTEND Obstetrics & Gynecology
DX: M79.89 Other specified soft tissue disorders (principal); Z01.818 Encounter for other preprocedural examination; N39.0 Urinary tract infection, site not specified
CPT/HCPCS: 36415; 80053; 81001; 85025; 85610; 85730; 87086

== ENCOUNTER 2022-05-31 07:33 | Day surgery (SDC) | payer OTHER, MEDICAID ==
[~2022-05-31] VITALS: Ht 152.4 cm; Wt 64.9 kg
[~2022-05-31 07:33] MED LIST changes: -GABA300C10 PO; -GLIP10TA9 PO; -HYDR25TA4 PO; -POTA1TAB61 PO
[2022-05-31] MEDS ORDERED: ROCURONIUM 10MG/ML 10ML VIAL IV ONE (07:34)
[2022-05-31] MEDS ORDERED: ceFAZolin 1GM/50ML 100 ML IV ONE (08:11)
[2022-05-31] MEDS ORDERED: PROPOFOL 10 MG/ML 20 ML IV ONE (08:54)
[2022-05-31] MEDS ORDERED: SODIUM CHLORIDE LOCK 10 ML ONE (08:54)
[2022-05-31] MEDS ORDERED: MIDAZOLAM HCL 2MG/2ML 2ml VIAL (1mg/ml) ONE (08:54)
[2022-05-31] MEDS ORDERED: DexAMETHasone SOD PHOS 10MG/1ML VIAL INJ ONE (08:54)
[2022-05-31] MEDS ORDERED: fentaNYL CITRATE 100 MCG/2 ML VL ONE (08:54)
[2022-05-31] MEDS ORDERED: ONDANSETRON HCL 4 MG/2 ML VIAL ONE (08:54)
[2022-05-31] MEDS ORDERED: SUGAMMADEX 200mg/2ml Vial (100MG/ML) IV ONE (10:33)
[2022-05-31] MEDS ORDERED: LIDOCAINE 1%-Mpf/Epinephrine 1:200,000 ONE (10:56)
[2022-05-31] MEDS ORDERED: ceFAZolin 1GM VL ONE (10:56)
[2022-05-31] MEDS ORDERED: CONJ ESTROGENS 0.625MG/GM VAG CRM 30GM PV ONE (10:57)
[2022-05-31] MEDS ORDERED: BUPIVACAINE 0.5% P/F INJ 10 ML VIAL ONE (10:57)
[2022-05-31] MEDS ORDERED: GELATIN 1 SPONGE SIZE 50 TOP ONE (12:20)
[2022-05-31] MEDS ORDERED: MORPHINE SULFATE 4 MG/ML SYR/VIAL IV PRN (13:15)
[2022-05-31] MEDS ORDERED: ACCU-CHEK COMFORT CURVE STRIP VI ONE (13:15)
[2022-05-31] MEDS ORDERED: KETOROLAC TROMETH 30 MG/ML 1ML VIAL IV ONE (13:15)
[2022-05-31] MEDS ORDERED: HYDROmorphone HCL 2 MG/ML VL/or syr IV PRN (13:15)
[2022-05-31] MEDS ORDERED: METOCLOPRAMIDE HCL 5MG/ml INJ 2ml VIAL IV PRN (13:15)
[2022-05-31 15:04] VITALS: BP 149/73
== END 2022-05-31 15:10 | disposition home or self-care (01) ==
LOC: SUR 07:33
PROVIDERS: ATTEND Obstetrics & Gynecology
DX: N81.6 Rectocele (principal); N81.10 Cystocele, unspecified; N81.5 Vaginal enterocele; N81.89 Other female genital prolapse; I10 Essential (primary) hypertension; E11.9 Type 2 diabetes mellitus without complications; E78.5 Hyperlipidemia, unspecified; E03.9 Hypothyroidism, unspecified; M19.90 Unspecified osteoarthritis, unspecified site; F41.9 Anxiety disorder, unspecified; F32.A Depression, unspecified; Z96.653 Presence of artificial knee joint, bilateral; Z90.710 Acquired absence of both cervix and uterus; Z98.41 Cataract extraction status, right eye; Z98.42 Cataract extraction status, left eye; Z20.822 Contact with and (suspected) exposure to COVID-19; Z82.49 Family history of ischemic heart disease and other diseases of the circulatory system; Z80.0 Family history of malignant neoplasm of digestive organs
CPT/HCPCS: 57106; 57265; 82962; 86850; 86900; 86901; 88305; J0690; J1100; J2001; J2250; J2405; J2704; J3010; U0003; J3490

== ENCOUNTER → 2022-09-06 | Outpatient (CLI) | payer OTHER, MEDICAID ==
[2022-09-06 07:23] LABS: Basophils # (auto) 0 10 ^3/uL (0-0.2); Eosinophils # (auto) 0.1 10 ^3/uL (0-0.8); Hemoglobin 11.5 g/dL (12.2-16.2); Lymphocytes # (auto) 1.4 10 ^3/uL (0.4-5.4); Mean Corpuscular Hemoglobin 26.7 pg (28.0-32.0); Monocytes # (auto) 0.6 10 ^3/uL (0-1.3); White Blood Cell 4.3 10^3/uL (4.4-10.8)
[2022-09-06 07:25] LABS: Basophils % (auto) 0.8 % (0.0-2.0); Eosinophils % (auto) 3.5 % (0.0-7.0); Hematocrit 35.9 % (36.0-46.0); Lymphocytes % (auto) 32.8 % (10.0-50.0); Mean Corpuscular Hgb Conc. 32.1 g/dL (32.0-36.0); Monocytes % (auto) 12.9 % (0.0-12.0); Neutrophils # (auto) 2.2 10 ^3/uL (1.6-8.6); Red Blood Cells 4.33 10^6/uL (4.0-5.20); Red Cell Distribution Width 15.3 % (11.8-14.3)
[2022-09-06 13:15] LABS: Potassium 3.9 mmol/L (3.5-5.1)
[2022-09-06 13:39] LABS: Albumin 3.6 g/dL (3.4-5.0); BUN/Creatinine Ratio 30.4; Bilirubin, Total 0.4 mg/dL (0.2-1.0); Calcium 9.1 mg/dL (8.5-10.1); Total Protein 8.3 g/dL (6.4-8.2)
== END | disposition home or self-care (01) ==
LOC: LAB 07:07
PROVIDERS: ATTEND Nurse Practitioner Family
DX: Z00.00 Encounter for general adult medical examination without abnormal findings (principal); I10 Essential (primary) hypertension; E11.42 Type 2 diabetes mellitus with diabetic polyneuropathy
CPT/HCPCS: 36415; 80053; 80061; 83036; 84443; 85025

== ENCOUNTER 2022-09-27 10:59 | Emergency (ER) | payer OTHER, MEDICAID ==
[~2022-09-27] VITALS: Ht 157.5 cm; Wt 62.5 kg
[2022-09-27 11:42] LABS: Basophils # (auto) 0 10 ^3/uL (0-0.2); Eosinophils # (auto) 0.2 10 ^3/uL (0-0.8); Eosinophils % (auto) 3.5 % (0.0-7.0); Hematocrit 36.5 % (36.0-46.0); Lymphocytes # (auto) 1.2 10 ^3/uL (0.4-5.4); Monocytes # (auto) 0.4 10 ^3/uL (0-1.3); Red Blood Cells 4.43 10^6/uL (4.0-5.20); Red Cell Distribution Width 15.9 % (11.8-14.3); White Blood Cell 4.4 10^3/uL (4.4-10.8)
[2022-09-27 11:44] LABS: Lymphocytes % (auto) 27.4 % (10.0-50.0); Mean Corpuscular Hgb Conc. 32.8 g/dL (32.0-36.0); Mean Corpuscular Volume 82.4 fL (80.0-100.0); Monocytes % (auto) 9.1 % (0.0-12.0); Neutrophils # (auto) 2.6 10 ^3/uL (1.6-8.6)
[2022-09-27 11:59] LABS: Albumin 3.5 g/dL (3.4-5.0); BUN/Creatinine Ratio 25.3; Potassium 4.3 mmol/L (3.5-5.1)
[2022-09-27 12:02] LABS: Bilirubin, Total 0.3 mg/dL (0.2-1.0)
[2022-09-27] MEDS ORDERED: CEPH-510 PO (14:54)
[2022-09-27 15:29] VITALS: BP 142/67
== END 2022-09-27 15:31 | disposition home or self-care (01) ==
LOC: ER 10:59
DX: L03.115 Cellulitis of right lower limb (principal); I10 Essential (primary) hypertension; E11.9 Type 2 diabetes mellitus without complications; E78.5 Hyperlipidemia, unspecified; Z90.710 Acquired absence of both cervix and uterus; Z79.4 Long term (current) use of insulin; Z79.899 Other long term (current) drug therapy; Z79.82 Long term (current) use of aspirin
CPT/HCPCS: 36415; 80053; 84484; 85025; 93971

== ENCOUNTER 2023-04-20 09:43 | Inpatient (IN) | payer OTHER, MEDICAID ==
[~2023-04-20] VITALS: Ht 157.5 cm; Wt 61.4 kg
[~2023-04-20 09:43] MED LIST changes: +CEPH-510 PO; -ESCI-34 PO; +ESCI1TAB37 PO; +LORA-1121 PO; -LORA0.5T20 PO; -SIMV-8 PO; +SIMV20TA20 PO
[2023-04-20 10:41] LABS: Urine Bacteria NONE SEEN /hpf (None Seen); Urine Blood Negative /uL (Negative); Urine Specific Gravity 1.007 (1.001-1.035); Urine WBC 1 /hpf (0 - 5)
[2023-04-20 10:50] LABS: Basophils # (auto) 0 10 ^3/uL (0-0.2); Eosinophils # (auto) 0.1 10 ^3/uL (0-0.8); Hemoglobin 12.2 g/dL (12.2-16.2); Lymphocytes # (auto) 1.5 10 ^3/uL (0.4-5.4); Mean Corpuscular Hemoglobin 26.4 pg (28.0-32.0); Monocytes # (auto) 0.4 10 ^3/uL (0-1.3); Nucleated Red Blood Cells % 0.1 %; Red Blood Cells 4.62 10^6/uL (4.0-5.20)
[2023-04-20 10:52] LABS: Basophils % (auto) 0.6 % (0.0-2.0); Eosinophils % (auto) 1.5 % (0.0-7.0); Hematocrit 38.1 % (36.0-46.0); Lymphocytes % (auto) 24.4 % (10.0-50.0); Mean Corpuscular Hgb Conc. 32.1 g/dL (32.0-36.0); Mean Corpuscular Volume 82.3 fL (80.0-100.0); Monocytes % (auto) 6.8 % (0.0-12.0); Neutrophils # (auto) 4.2 10 ^3/uL (1.6-8.6); Neutrophils % (auto) 66.7 % (37.0-80.0); Red Cell Distribution Width 15.7 % (11.8-14.3); White Blood Cell 6.3 10^3/uL (4.4-10.8)
[2023-04-20 11:28] LABS: Albumin 3.7 g/dL (3.4-5.0); BUN/Creatinine Ratio 21.8 (10.0-20.0); Bilirubin, Total 0.3 mg/dL (0.2-1.0); Calcium 8.9 mg/dL (8.5-10.1); Potassium 4.3 mmol/L (3.5-5.1); Total Protein 8.2 g/dL (6.4-8.2)
[2023-04-20] MEDS ORDERED: MORPHINE SULFATE INJ 2 MG/ml SYRG IV PRN (14:15)
[2023-04-20] MEDS ORDERED: NITROGLYCERIN 0.4 MG SL TAB SL PRN (14:15)
[2023-04-20] MEDS ORDERED: DEXTROSE (50%) 50ML SYRG IV PRN (14:15)
[2023-04-20] MEDS ORDERED: SODIUM CHLORIDE 0.9% 1,000 ML IV ONE (14:30)
[2023-04-20] MEDS ORDERED: LORazepam 0.5 MG TAB PO PRN (14:30)
[2023-04-20 16:38] LABS: INR 1.01 (0.9-1.15); Partial Thromboplastin Time 30.8 SEC (24.5-34.5)
[2023-04-20] MEDS: ACCU-CHEK COMFORT CURVE STRIP VI SCH ×2 (17:22→23:15)
[2023-04-20] MEDS: InsuLIN REG 1unit/0.01ml Soln (100units/ml) SC SCH ×2 (17:28→23:22)
[2023-04-20] MEDS: MIRTAZAPINE 30 MG TAB PO SCH (18:18)
[2023-04-20] MEDS: HYDROcodone-ACET 5/325MG TAB PO PRN (20:55)
[2023-04-20] MEDS: OXYBUTYNIN CHL 5 MG TAB PO SCH (23:22)
[2023-04-20] MEDS: ATORVASTATIN 20 MG TAB PO SCH (23:24)
[2023-04-20] MEDS: BETHANECHOL CHLORIDE 25 MG TAB PO SCH (23:29)
[2023-04-21] MEDS: CITALOPRAM HYDROBR 20 MG TAB PO SCH (06:30)
[2023-04-21] MEDS: LEVOTHYROXINE SODIUM 25 MCG TAB PO SCH (06:30)
[2023-04-21] MEDS: LOSARTAN POTASSIUM 50 MG TAB PO SCH (06:32)
[2023-04-21 06:37] VITALS: BP 153/59
[2023-04-21] MEDS: InsuLIN REG 1unit/0.01ml Soln (100units/ml) SC SCH ×4 (06:43→22:05)
[2023-04-21] MEDS: ACCU-CHEK COMFORT CURVE STRIP VI SCH ×4 (06:45→21:59)
[2023-04-21 06:46] LABS: Basophils # (auto) 0 10 ^3/uL (0-0.2); Eosinophils # (auto) 0.2 10 ^3/uL (0-0.8); Hemoglobin 12.8 g/dL (12.2-16.2); Lymphocytes # (auto) 1.9 10 ^3/uL (0.4-5.4); Monocytes # (auto) 0.5 10 ^3/uL (0-1.3); Neutrophils # (auto) 1.8 10 ^3/uL (1.6-8.6); White Blood Cell 4.4 10^3/uL (4.4-10.8)
[2023-04-21 06:49] LABS: Albumin 3.7 g/dL (3.4-5.0); Potassium 3.8 mmol/L (3.5-5.1)
[2023-04-21 06:50] LABS: Basophils % (auto) 0.6 % (0.0-2.0); Eosinophils % (auto) 4.5 % (0.0-7.0); Lymphocytes % (auto) 42.8 % (10.0-50.0); Mean Corpuscular Hemoglobin 26.9 pg (28.0-32.0); Mean Corpuscular Hgb Conc. 32.7 g/dL (32.0-36.0); Mean Corpuscular Volume 82.2 fL (80.0-100.0); Monocytes % (auto) 11.3 % (0.0-12.0); Neutrophils % (auto) 40.8 % (37.0-80.0); Nucleated Red Blood Cells % 0.1 %; Red Blood Cells 4.75 10^6/uL (4.0-5.20); Red Cell Distribution Width 15.7 % (11.8-14.3)
[2023-04-21 06:57] LABS: BUN/Creatinine Ratio 22.1 (10.0-20.0); Bilirubin, Total 0.3 mg/dL (0.2-1.0); Calcium 9.3 mg/dL (8.5-10.1); Total Protein 8.8 g/dL (6.4-8.2)
[2023-04-21 09:07] VITALS: BP 146/61
[2023-04-21] MEDS: OXYBUTYNIN CHL 5 MG TAB PO SCH ×2 (09:59→21:59)
[2023-04-21] MEDS: FAMOTIDINE 20 MG TAB PO SCH (09:59)
[2023-04-21] MEDS: NIFEdipine ER 30 MG TAB PO SCH (10:00)
[2023-04-21] MEDS ORDERED: ASPirin-EC 81 mg tab PO SCH (10:00)
[2023-04-21] MEDS: HYDROcodone-ACET 5/325MG TAB PO PRN (10:05)
[2023-04-21 12:32] VITALS: BP 160/72
[2023-04-21 13:04] VITALS: BP 142/49
[2023-04-21] MEDS: BETHANECHOL CHLORIDE 25 MG TAB PO SCH ×2 (14:00→21:59)
[2023-04-21 16:07] VITALS: BP 133/58
[2023-04-21] MEDS: MIRTAZAPINE 30 MG TAB PO SCH (17:35)
[2023-04-21] MEDS: ATORVASTATIN 20 MG TAB PO SCH (21:59)
[2023-04-21 22:00] VITALS: BP 141/71
[2023-04-22 05:00] VITALS: BP 134/59
[2023-04-22] MEDS: CITALOPRAM HYDROBR 20 MG TAB PO SCH (05:59)
[2023-04-22] MEDS: BETHANECHOL CHLORIDE 25 MG TAB PO SCH ×3 (06:01→23:12)
[2023-04-22] MEDS: LOSARTAN POTASSIUM 50 MG TAB PO SCH (06:01)
[2023-04-22] MEDS: LEVOTHYROXINE SODIUM 25 MCG TAB PO SCH (06:01)
[2023-04-22] MEDS: HYDROcodone-ACET 5/325MG TAB PO PRN ×2 (06:01→18:44)
[2023-04-22] MEDS: ACCU-CHEK COMFORT CURVE STRIP VI SCH ×4 (06:02→23:13)
[2023-04-22] MEDS: InsuLIN REG 1unit/0.01ml Soln (100units/ml) SC SCH ×4 (06:07→23:20)
[2023-04-22 06:41] LABS: Basophils # (auto) 0 10 ^3/uL (0-0.2); Basophils % (auto) 0.9 % (0.0-2.0); Eosinophils # (auto) 0.2 10 ^3/uL (0-0.8); Eosinophils % (auto) 3.7 % (0.0-7.0); Hematocrit 35.5 % (36.0-46.0); Hemoglobin 11.8 g/dL (12.2-16.2); Lymphocytes # (auto) 1.3 10 ^3/uL (0.4-5.4); Lymphocytes % (auto) 31.3 % (10.0-50.0); Mean Corpuscular Hemoglobin 27.2 pg (28.0-32.0); Mean Corpuscular Hgb Conc. 33.1 g/dL (32.0-36.0); Mean Corpuscular Volume 82.2 fL (80.0-100.0); Monocytes # (auto) 0.4 10 ^3/uL (0-1.3); Monocytes % (auto) 10.3 % (0.0-12.0); Neutrophils # (auto) 2.3 10 ^3/uL (1.6-8.6); Neutrophils % (auto) 53.8 % (37.0-80.0); Nucleated Red Blood Cells % 0.1 %; Red Blood Cells 4.32 10^6/uL (4.0-5.20); Red Cell Distribution Width 15.7 % (11.8-14.3); White Blood Cell 4.3 10^3/uL (4.4-10.8)
[2023-04-22 06:50] LABS: Potassium 3.7 mmol/L (3.5-5.1)
[2023-04-22 07:06] LABS: Albumin 3.2 g/dL (3.4-5.0); BUN/Creatinine Ratio 29.4 (10.0-20.0); Bilirubin, Total 0.4 mg/dL (0.2-1.0); Calcium 8.8 mg/dL (8.5-10.1); Total Protein 7.5 g/dL (6.4-8.2)
[2023-04-22 08:27] VITALS: BP 137/54
[2023-04-22] MEDS: OXYBUTYNIN CHL 5 MG TAB PO SCH ×2 (09:40→23:12)
[2023-04-22] MEDS: FAMOTIDINE 20 MG TAB PO SCH (09:40)
[2023-04-22] MEDS: NIFEdipine ER 30 MG TAB PO SCH (09:41)
[2023-04-22 13:02] VITALS: BP 117/50
[2023-04-22 13:03] VITALS: BP_SYST 91; BP_SYST 92; BP_DIAS 43; BP_DIAS 47
[2023-04-22] MEDS: SODIUM CHLORIDE 0.9% 1,000 ML IV SCH (14:14)
[2023-04-22] MEDS: MIRTAZAPINE 30 MG TAB PO SCH (17:02)
[2023-04-22 22:00] VITALS: BP 126/61
[2023-04-22] MEDS: ATORVASTATIN 20 MG TAB PO SCH (23:12)
[2023-04-23 05:00] VITALS: BP 130/55
[2023-04-23 06:17] LABS: Basophils # (auto) 0 10 ^3/uL (0-0.2); Eosinophils # (auto) 0.2 10 ^3/uL (0-0.8); Eosinophils % (auto) 4.4 % (0.0-7.0); Monocytes # (auto) 0.4 10 ^3/uL (0-1.3); White Blood Cell 3.8 10^3/uL (4.4-10.8)
[2023-04-23 06:19] LABS: Basophils % (auto) 0.8 % (0.0-2.0); Hemoglobin 11.6 g/dL (12.2-16.2); Lymphocytes # (auto) 1.4 10 ^3/uL (0.4-5.4); Mean Corpuscular Hemoglobin 26.7 pg (28.0-32.0); Mean Corpuscular Hgb Conc. 32.3 g/dL (32.0-36.0); Mean Corpuscular Volume 82.6 fL (80.0-100.0); Monocytes % (auto) 10.5 % (0.0-12.0); Neutrophils # (auto) 1.8 10 ^3/uL (1.6-8.6); Neutrophils % (auto) 46.3 % (37.0-80.0); Nucleated Red Blood Cells % 0.2 %; Red Blood Cells 4.36 10^6/uL (4.0-5.20)
[2023-04-23 06:55] LABS: BUN/Creatinine Ratio 31.1 (10.0-20.0); Magnesium 2.2 mg/dL (1.6-2.6); Potassium 3.7 mmol/L (3.5-5.1)
[2023-04-23] MEDS ORDERED: LOSARTAN POTASSIUM 50 MG TAB PO SCH (07:00)
[2023-04-23 07:05] LABS: Calcium 8.4 mg/dL (8.5-10.1)
[2023-04-23] MEDS: CITALOPRAM HYDROBR 20 MG TAB PO SCH (07:05)
[2023-04-23] MEDS: BETHANECHOL CHLORIDE 25 MG TAB PO SCH ×2 (07:05→14:55)
[2023-04-23] MEDS: LEVOTHYROXINE SODIUM 25 MCG TAB PO SCH (07:05)
[2023-04-23] MEDS: ACCU-CHEK COMFORT CURVE STRIP VI SCH ×2 (07:08→11:52)
[2023-04-23] MEDS: InsuLIN REG 1unit/0.01ml Soln (100units/ml) SC SCH ×2 (07:11→12:14)
[2023-04-23 09:00] VITALS: BP 138/63
[2023-04-23] MEDS: FAMOTIDINE 20 MG TAB PO SCH (09:16)
[2023-04-23] MEDS: SODIUM CHLORIDE 0.9% 1,000 ML IV SCH (09:16)
[2023-04-23] MEDS: OXYBUTYNIN CHL 5 MG TAB PO SCH (09:16)
[2023-04-23] MEDS ORDERED: FLUDROCORTISONE ACETATE 0.1 MG TAB PO SCH (10:00)
[2023-04-23] MEDS: NIFEdipine ER 30 MG TAB PO SCH (10:10)
[2023-04-23 13:09] VITALS: BP 127/59
[2023-04-23] MEDS ORDERED: FLUD0.1T2 PO (14:51)
[2023-04-23 15:56] VITALS: BP 138/63
== END 2023-04-23 16:36 | disposition home or self-care (01) | DRG 605 ==
LOC: ER 09:43 → TELE 14:12 → TELE-WESTW 04-21 00:36 → TELE 04-21 02:06 → TELE-WESTW 04-21 04:09
PROVIDERS: ADMIT Internal Medicine; ATTEND Internal Medicine
DX: S01.01XA Laceration without foreign body of scalp, initial encounter (principal); S09.90XA Unspecified injury of head, initial encounter; I10 Essential (primary) hypertension; I95.1 Orthostatic hypotension; E78.5 Hyperlipidemia, unspecified; E86.0 Dehydration; E11.622 Type 2 diabetes mellitus with other skin ulcer; E07.9 Disorder of thyroid, unspecified; F17.200 Nicotine dependence, unspecified, uncomplicated; W18.39XA Other fall on same level, initial encounter; Z90.710 Acquired absence of both cervix and uterus; Z82.49 Family history of ischemic heart disease and other diseases of the circulatory system; Z80.9 Family history of malignant neoplasm, unspecified; Z79.4 Long term (current) use of insulin; Z79.52 Long term (current) use of systemic steroids; Z63.4 Disappearance and death of family member; Z86.73 Personal history of transient ischemic attack (TIA), and cerebral infarction without residual deficits; Y93.89 Activity, other specified; Y92.89 Other specified places as the place of occurrence of the external cause; Y99.8 Other external cause status
CPT/HCPCS: 36415; 70450; 70551; 80048; 80053; 80061; 81001; 82043; 82962; 83036; 83735; 83880; 84443; 84484; 85025; 85610; 85730; 93005; 93017; 93306; 93886; 95819; 97110; 97116; 97163; 97530; G0378; J1815

== ENCOUNTER → 2023-10-05 | Outpatient (CLI) | payer OTHER, MEDICAID ==
[~2023-10-05] MED LIST changes: -ASPI-498 PO; -CEPH-510 PO; +FLUD0.1T2 PO; -IRBE150T49 PO; -LEVEMIR SC
[2023-10-05 07:32] LABS: Basophils # (auto) 0 10 ^3/uL (0-0.2); Eosinophils # (auto) 0.2 10 ^3/uL (0-0.8); Lymphocytes # (auto) 1.6 10 ^3/uL (0.4-5.4); Monocytes # (auto) 0.4 10 ^3/uL (0-1.3); Neutrophils # (auto) 2.7 10 ^3/uL (1.6-8.6); Nucleated Red Blood Cells % 0.1 %
[2023-10-05 07:34] LABS: Basophils % (auto) 0.8 % (0.0-2.0); Eosinophils % (auto) 3.9 % (0.0-7.0); Hematocrit 38.2 % (36.0-46.0); Hemoglobin 12.2 g/dL (12.2-16.2); Lymphocytes % (auto) 32.5 % (10.0-50.0); Mean Corpuscular Hgb Conc. 31.9 g/dL (32.0-36.0); Mean Corpuscular Volume 81.4 fL (80.0-100.0); Monocytes % (auto) 8.8 % (0.0-12.0); Red Blood Cells 4.69 10^6/uL (4.0-5.20); Red Cell Distribution Width 17.4 % (11.8-14.3)
[2023-10-05 08:01] LABS: Alanine Aminotransferase 13 U/L (7-40); Albumin 4.4 g/dL (3.2-4.8); Alkaline Phosphatase 77 U/L (46-116); Anion Gap 5 (5-15); Aspartate Aminotransferase 20 U/L (13-40); BUN/Creatinine Ratio 19.7 (10.0-20.0); Blood Urea Nitrogen 15 mg/dL (9-23); Calcium 9.9 mg/dL (8.5-10.1); Carbon Dioxide 31 mmol/L (20-30); Chloride 104 mmol/L (98-107); Glucose 153 mg/dL (74-106); LDL Cholesterol 75 mg/dL (< 100); Potassium 4.2 mmol/L (3.5-5.1); Sodium 140 mmol/L (136-145); Triglycerides 138 mg/dL (< 150)
[2023-10-05 08:02] LABS: Bilirubin, Total 0.5 mg/dL (0.2-1.0); Cholesterol 151 mg/dL (< 200); HDL Cholesterol 57 mg/dL (40-59); Total Protein 7.6 g/dL (5.7-8.2)
[2023-10-05 08:13] LABS: Creatinine, Urine 12.24 mg/dL (30.0-125.0)
[2023-10-05 08:15] LABS: Micro Albumin < 3.0 mg/L (<30.0)
== END | disposition home or self-care (01) ==
LOC: LAB 06:58
PROVIDERS: ATTEND Nurse Practitioner Family
DX: E11.42 Type 2 diabetes mellitus with diabetic polyneuropathy (principal); F33.9 Major depressive disorder, recurrent, unspecified
CPT/HCPCS: 36415; 80053; 80061; 82043; 82570; 83036; 84439; 84443; 85025

== ENCOUNTER 2024-03-12 17:21 | Emergency (ER) | payer OTHER, MEDICAID ==
[~2024-03-12] VITALS: Ht 157.5 cm; Wt 77.0 kg
[2024-03-12 17:46] LABS: Urine Bacteria None Seen /hpf (None Seen)
[2024-03-12 17:58] LABS: Urine Blood Negative /uL (Negative); Urine Clarity Clear (Clear); Urine Color Colorless (Yellow); Urine Protein, UAD Negative (Negative); Urine Specific Gravity 1.003 (1.001-1.035); Urine Urobilinogen Normal (Negative); Urine WBC 1 /hpf (0 - 5)
[2024-03-12 18:11] LABS: Basophils # (auto) 0 10 ^3/uL (0-0.2); Basophils % (auto) 0.8 % (0.0-2.0); Eosinophils # (auto) 0.2 10 ^3/uL (0-0.8); Eosinophils % (auto) 2.9 % (0.0-7.0); Hematocrit 39.3 % (36.0-46.0); Hemoglobin 12.8 g/dL (12.2-16.2); Lymphocytes # (auto) 2.7 10 ^3/uL (0.4-5.4); Lymphocytes % (auto) 41.2 % (10.0-50.0); Mean Corpuscular Hgb Conc. 32.6 g/dL (32.0-36.0); Monocytes # (auto) 0.6 10 ^3/uL (0-1.3); Monocytes % (auto) 8.6 % (0.0-12.0); Neutrophils % (auto) 46.5 % (37.0-80.0); Nucleated Red Blood Cells % 0.1 %; Red Blood Cells 4.74 10^6/uL (4.0-5.20); Red Cell Distribution Width 15.6 % (11.8-14.3); White Blood Cell 6.5 10^3/uL (4.4-10.8)
[2024-03-12 18:28] LABS: Alanine Aminotransferase 29 U/L (7-40); Albumin 4.5 g/dL (3.2-4.8); Alkaline Phosphatase 66 U/L (46-116); Anion Gap 13 (5-15); Aspartate Aminotransferase 26 U/L (13-40); BUN/Creatinine Ratio 29.7 (10.0-20.0); Bilirubin, Total 0.4 mg/dL (0.2-1.0); Blood Urea Nitrogen 22 mg/dL (9-23); Calcium 10.1 mg/dL (8.7-10.4); Carbon Dioxide 20 mmol/L (20-30); Chloride 101 mmol/L (98-107); Glucose 127 mg/dL (74-106); Magnesium 2.1 mg/dL (1.6-2.6); Potassium 4.3 mmol/L (3.5-5.1); Sodium 134 mmol/L (136-145); Total Protein 7.8 g/dL (5.7-8.2)
[2024-03-12] MEDS: ACETAMINOPHEN 325 MG TAB PO ONE (18:47)
[2024-03-12] MEDS: IBUPROFEN 600 MG TAB PO ONE (18:48)
[2024-03-12] MEDS: ONDANSETRON HCL 4 MG/2 ML VIAL IV ONE (18:50)
[2024-03-12] MEDS: MORPHINE SULFATE 4 MG/ML SYR/VIAL IV ONE (18:58)
[2024-03-12 19:30] VITALS: O2SAT 100
[2024-03-12] MEDS: HYDROCORTISONE SOD SUCC 100 MG/2ML INJ VIAL IV ONE (19:36)
[2024-03-12] MEDS: SODIUM CHLORIDE 0.9% 1,500 ML IV ONE (19:37)
[2024-03-12] MEDS: FAMOTIDINE (10MG/ML) 2ML VL IV ONE (19:37)
[2024-03-12 19:47] VITALS: TEMP 98
[2024-03-12 19:50] VITALS: BP 150/75; PULSE 83; RESP 9; O2SAT 100
[2024-03-12 20:31] LABS: Base Excess 1.5 mmol/L (-2.0-2.0)
[2024-03-12] MEDS ORDERED: LIDO5DIS21 TOP (21:53)
[2024-03-12] MEDS ORDERED: IBUP-1453 PO (21:53)
== END 2024-03-12 22:01 | disposition home or self-care (01) ==
LOC: ER 17:21
DX: F41.0 Panic disorder [episodic paroxysmal anxiety] (principal); F41.9 Anxiety disorder, unspecified; M85.612 Other cyst of bone, left shoulder; G62.9 Polyneuropathy, unspecified; M25.552 Pain in left hip; M25.551 Pain in right hip; M25.562 Pain in left knee; M25.561 Pain in right knee; I10 Essential (primary) hypertension; E11.9 Type 2 diabetes mellitus without complications; E78.5 Hyperlipidemia, unspecified; Z98.890 Other specified postprocedural states
CPT/HCPCS: 36415; 36600; 71045; 73030; 73560; 80053; 81001; 82805; 83036; 83735; 83880; 84484; 85025; 93005; 96361; 96374; 96375; 99285; J1720; J2270; J2405; J3490; J7030; J7040

== ENCOUNTER → 2024-05-09 | Outpatient (CLI) | payer OTHER ==
[~2024-05-09] MED LIST changes: +IBUP-1453 PO; +LIDO5DIS21 TOP
== END | disposition home or self-care (01) ==
LOC: LAB 11:50
PROVIDERS: ATTEND Internal Medicine Gastroenterology
DX: R93.3 Abnormal findings on diagnostic imaging of other parts of digestive tract (principal)
CPT/HCPCS: 82378; 86301

== ENCOUNTER 2024-07-02 08:20 | Day surgery (SDC) | payer OTHER, MEDICAID ==
[2024-06-29 15:09] LABS: Urine Bacteria None Seen /hpf (None Seen)
[2024-06-29 15:14] LABS: Basophils # (auto) 0.1 10 ^3/uL (0-0.2); Basophils % (auto) 0.8 % (0.0-2.0); Eosinophils # (auto) 0.1 10 ^3/uL (0-0.8); Eosinophils % (auto) 1.6 % (0.0-7.0); Hematocrit 40.1 % (36.0-46.0); Hemoglobin 13.3 g/dL (12.2-16.2); Lymphocytes # (auto) 3.1 10 ^3/uL (0.4-5.4); Lymphocytes % (auto) 35.2 % (10.0-50.0); Mean Corpuscular Hemoglobin 27.4 pg (28.0-32.0); Mean Corpuscular Hgb Conc. 33.1 g/dL (32.0-36.0); Mean Corpuscular Volume 82.9 fL (80.0-100.0); Monocytes # (auto) 0.8 10 ^3/uL (0-1.3); Neutrophils # (auto) 4.7 10 ^3/uL (1.6-8.6); Neutrophils % (auto) 53.4 % (37.0-80.0); Platelet Count (auto) 303 10^3/uL (140-450); Red Blood Cells 4.84 10^6/uL (4.0-5.20); White Blood Cell 8.7 10^3/uL (4.4-10.8)
[2024-06-29 15:15] LABS: Urine Blood Negative /uL (Negative); Urine Clarity Clear (Clear); Urine Color Light-Yellow (Yellow); Urine Protein, UAD Negative (Negative); Urine Specific Gravity 1.005 (1.001-1.035); Urine Urobilinogen Normal (Negative); Urine WBC <1 /hpf (0 - 5); Urine pH 7.5 (5.0-9.0)
[2024-06-29 15:35] LABS: INR 1.03 (0.9-1.15); Partial Thromboplastin Time 29.1 SEC (24.5-34.5); Prothrombin Time 10.9 sec (9.3-11.8)
[2024-06-29 15:54] LABS: Alanine Aminotransferase 17 U/L (7-40); Alkaline Phosphatase 87 U/L (46-116); Anion Gap 8 (5-15); Aspartate Aminotransferase 22 U/L (13-40); BUN/Creatinine Ratio 25.3 (10.0-20.0); Blood Urea Nitrogen 21 mg/dL (9-23); Calcium 10.2 mg/dL (8.7-10.4); Carbon Dioxide 25 mmol/L (20-30); Chloride 104 mmol/L (98-107); Glucose 89 mg/dL (74-106); Sodium 137 mmol/L (136-145)
[2024-06-29 15:55] LABS: Albumin 4.7 g/dL (3.2-4.8); Bilirubin, Total 0.5 mg/dL (0.2-1.0); Total Protein 8.4 g/dL (5.7-8.2)
[~2024-07-02] VITALS: Ht 152.4 cm; Wt 57.6 kg
[~2024-07-02 08:20] MED LIST changes: -BET25T PO; +CIPR-173 PO; -OXYB10TA14 PO; +SOLI10TA39 PO
[2024-07-02] MEDS ORDERED: LIDOCAINE W/ EPINEPHRINE 1% 20ML VIAL ONE (09:15)
[2024-07-02] MEDS ORDERED: CONJ ESTROGENS 0.625MG/GM VAG CRM 30GM PV ONE (09:15)
[2024-07-02] MEDS ORDERED: VASOPRESSIN 20 UNIT/ML ONE (09:24)
[2024-07-02] MEDS ORDERED: ceFAZolin 2 GM/D5W100ml 100 ML IV ONE (09:26)
[2024-07-02] MEDS ORDERED: ceFAZolin 1GM VL ONE (09:31)
[2024-07-02] MEDS ORDERED: MIDAZOLAM HCL 2MG/2ML 2ml VIAL (1mg/ml) ONE (10:04)
[2024-07-02] MEDS ORDERED: fentaNYL CITRATE 100 MCG/2 ML VL ONE (10:04)
[2024-07-02] MEDS ORDERED: MEPERIDINE HCL (25 MG/ML) 1ML VIAL ONE (10:04)
[2024-07-02] MEDS ORDERED: DexAMETHasone SOD PHOS 10MG/1ML VIAL INJ ONE (10:17)
[2024-07-02] MEDS ORDERED: PROPOFOL 10 MG/ML 20 ML IV ONE (10:17)
[2024-07-02] MEDS ORDERED: LIDOCAINE 2% JELLY 11ml (GLYDO) ONE (10:46)
[2024-07-02] MEDS ORDERED: ONDANSETRON HCL 4 MG/2 ML VIAL IV ONE (11:15)
[2024-07-02] MEDS ORDERED: HYDROmorphone HCL 2 MG/ML VL/or syr IV PRN (11:15)
[2024-07-02] MEDS ORDERED: MORPHINE SULFATE 4 MG/ML SYR/VIAL IV PRN (11:15)
[2024-07-02] MEDS ORDERED: MIDAZOLAM HCL 2MG/2ML 2ml VIAL (1mg/ml) IV PRN (11:15)
[2024-07-02] MEDS ORDERED: ePHEDrine SULFATE 50 MG/ML AMP IV PRN (11:15)
[2024-07-02] MEDS ORDERED: hydrALAZINE HCL 20 MG/ML VL IV PRN (11:15)
[2024-07-02] MEDS ORDERED: KETOROLAC TROMETH 30 MG/ML 1ML VIAL ONE (12:15)
[2024-07-02 12:29] VITALS: O2SAT 96
[2024-07-02 12:30] VITALS: TEMP 97.8
[2024-07-02] MEDS ORDERED: ONDANSETRON HCL 4 MG/2 ML VIAL IV PRN (12:30)
[2024-07-02 13:30] VITALS: BP 140/59; PULSE 80; RESP 13; O2SAT 93
== END 2024-07-02 13:48 | disposition home or self-care (01) ==
LOC: SUR 08:20
PROVIDERS: ATTEND Obstetrics & Gynecology
DX: N39.3 Stress incontinence (female) (male) (principal); N81.10 Cystocele, unspecified; N81.6 Rectocele; E11.9 Type 2 diabetes mellitus without complications; E03.9 Hypothyroidism, unspecified; I25.10 Atherosclerotic heart disease of native coronary artery without angina pectoris; I10 Essential (primary) hypertension; E78.5 Hyperlipidemia, unspecified; F41.9 Anxiety disorder, unspecified; Z79.890 Hormone replacement therapy; Z79.84 Long term (current) use of oral hypoglycemic drugs; Z79.4 Long term (current) use of insulin; Z91.040 Latex allergy status; Z90.710 Acquired absence of both cervix and uterus; Z80.8 Family history of malignant neoplasm of other organs or systems; Z82.49 Family history of ischemic heart disease and other diseases of the circulatory system
CPT/HCPCS: 36415; 57135; 57260; 57288; 80053; 81001; 82962; 85025; 85610; 85730; 87086; 88305; C1771; J1100; J1885; J2175; J2250; J2704; J3010; Q4180; J0690

== ENCOUNTER → 2024-07-19 | Outpatient (CLI) | payer OTHER, MEDICAID ==
[2024-07-19 14:40] LABS: Creatinine, Urine 35.77 mg/dL (30.0-125.0)
== END | disposition home or self-care (01) ==
LOC: LAB 13:36
PROVIDERS: ATTEND Nurse Practitioner Family
DX: E11.618 Type 2 diabetes mellitus with other diabetic arthropathy (principal)
CPT/HCPCS: 36415; 82043; 82570

== ENCOUNTER → 2024-10-19 | Outpatient (CLI) | payer OTHER, MEDICAID ==
[2024-10-19 07:31] LABS: Basophils # (auto) 0 10 ^3/uL (0-0.2); Eosinophils # (auto) 0.2 10 ^3/uL (0-0.8); Hemoglobin 11.9 g/dL (12.2-16.2); Lymphocytes # (auto) 1.4 10 ^3/uL (0.4-5.4); Monocytes # (auto) 0.6 10 ^3/uL (0-1.3); Neutrophils # (auto) 3.1 10 ^3/uL (1.6-8.6); Neutrophils % (auto) 57.9 % (37.0-80.0)
[2024-10-19 07:33] LABS: Basophils % (auto) 0.7 % (0.0-2.0); Eosinophils % (auto) 3.6 % (0.0-7.0); Hematocrit 37.3 % (36.0-46.0); Lymphocytes % (auto) 26.9 % (10.0-50.0); Mean Corpuscular Hemoglobin 25.6 pg (28.0-32.0); Mean Corpuscular Volume 79.8 fL (80.0-100.0); Monocytes % (auto) 10.9 % (0.0-12.0); Platelet Count (auto) 238 10^3/uL (140-450); Red Blood Cells 4.67 10^6/uL (4.0-5.20); Red Cell Distribution Width 16.8 % (11.8-14.3); White Blood Cell 5.3 10^3/uL (4.4-10.8)
[2024-10-19 07:40] LABS: Alanine Aminotransferase 13 U/L (7-40); Albumin 4.3 g/dL (3.2-4.8); Alkaline Phosphatase 83 U/L (46-116); Anion Gap 5 (5-15); Aspartate Aminotransferase 21 U/L (13-40); Bilirubin, Total 0.3 mg/dL (0.2-1.0); Blood Urea Nitrogen 18 mg/dL (9-23); Calcium 9.9 mg/dL (8.7-10.4); Carbon Dioxide 29 mmol/L (20-31); Chloride 106 mmol/L (98-107); Cholesterol 142 mg/dL (< 200); LDL Cholesterol 58 mg/dL (< 100); Potassium 4.2 mmol/L (3.5-5.1); Sodium 140 mmol/L (136-145); Triglycerides 114 mg/dL (< 150)
[2024-10-19 07:41] LABS: Total Protein 7.6 g/dL (5.7-8.2)
[2024-10-19 07:48] LABS: Glucose 159 mg/dL (74-106); HDL Cholesterol 67 mg/dL (40-59)
[2024-10-19 07:56] LABS: Creatinine, Urine 29.64 mg/dL (30.0-125.0)
[2024-10-19 08:08] LABS: Micro Albumin < 3.0 mg/L (<30.0)
== END | disposition home or self-care (01) ==
LOC: LAB 06:55
PROVIDERS: ATTEND Nurse Practitioner Family
DX: I10 Essential (primary) hypertension (principal); E11.42 Type 2 diabetes mellitus with diabetic polyneuropathy
CPT/HCPCS: 36415; 80053; 80061; 82043; 82570; 83036; 84443; 85025

== ENCOUNTER 2024-12-04 16:32 | Inpatient (IN) | payer OTHER, MEDICAID ==
[~2024-12-04] VITALS: Ht 152.4 cm; Wt 51.1 kg
--- NOTE | 2024-12-04 17:34 | ED.PDOC ---
HPI (NEURO) HPI Comments 84-year-old female with a history of TIA, hypertension, diabetes, hyperlipidemia and thyroid disease transferred from [facility] for evaluation of possible TIA. Patient was brought in by ambulance to [facility] after being found at home with altered mental status. Findings at [facility] included upward gaze, left-sided facial droop, left upper and lower extremity weakness. Patient was reportedly last known well around 4:00 a.m., then found with altered mental status at around 8:40 a.m. by daughter, and was complaining of chest pain and shortness a breath. Patient underwent extensive workup at [facility] including comprehensive labs which were essentially unremarkable, CT angio head and neck, CT perfusion brain scan with contrast, and CT angio chest which were unremarkable. On arrival to the ER. Patient is alert, oriented x4, denies any current vision changes, weakness or dizziness. Chief Complaint: ALOC Time Seen by MD: 17:10 Primary Care Provider: UNKNOWN Information Source: Patient, Emergency Med Personnel Mode of Arrival: EMS Past Medical History PAST MEDICAL HISTORY: DM, High Lipids, HTN, Thyroid Past Medical History (Other): TIA Surgical History: Hernia Repair, Hysterectomy Surgical History (Other): Cataract surgery, lens implant, bilateral knee replacement BEVELER History: No Pertinent BEVELER History Family History Family History: Reviewed,noncontributory to illness Social History Smoker: Non-Smoker Alcohol: Denies ETOH Use Drugs: Denies Drug Use Lives In: Home All Other Systems: Reviewed and Negative (Comprehensive systems review obtained and negative except for what is stated in the HPI.) Physical Exam General Appearance: No Apparent Distress HEENT: PERRL/EOMI, Other (No facial asymmetry. Moist mucous membranes.) Neck: Full Range of Motion, Normal Inspection Respiratory: Lungs Clear, No Accessory Muscle Use, No Respiratory Distress, Normal Breath Sounds Cardiovascular: No Edema, No JVD, Regular Rate/Rhythm Breast Exam: Deferred Gastrointestinal: Non Tender, Soft Genitalia: Deferred Pelvic: Deferred Rectal: Deferred Extremities: Normal inspection, Normal range of motion, Non-tender, No pedal edema Neurologic: Alert (Oriented x4), No Motor Deficits, Normal Affect, Normal Mood, Other (Pronator drift test could not be performed. Patient states she can not raise her arms due to shoulder pain. No gross focal deficit.) Cerebellar Function: NOT DONE Reflexes: NOT DONE Skin: Dry, Normal Color, Warm Lymphatic: NOT DONE Was a procedure done? Was a procedure done?: No Differential Diagnosis (SZ) Seizure: CVA/TIA, Hypoglycemia, Idiopathic General Weakness: Encephalopathy, Myasthenia gravis Headache: Migraine X-Ray, Labs, Meds, VS Vital Signs Date Time Temp Pulse Resp B/P (MAP) Pulse Ox O2 Delivery O2 Flow Rate FiO2 12/04/24 18:51 58 12/04/24 18:43 57 11 157/63 (94) 96 12/04/24 18:37 57 11 93 Room Air* 0 21 12/04/24 17:15 97.5 57 11 136/58 (84) 93 97.5 12/04/24 16:45 98.1 62 16 175/76 (109) 95 Lab Test 12/04/24 18:05 Range/Units Urine Color Light-yellow Yellow Urine Clarity Clear Clear Urine pH 7.5 5.0-9.0 Urine Specific [place] 1.039 H 1.001-1.035 Urine Protein Negative Negative Urine Ketones Negative Negative Urine Blood Negative Negative /uL Urine Nitrite Negative Negative Urine Bilirubin Negative Negative Urine Urobilinogen Normal Negative mg/dL Urine Leukocyte Esterase Negative Negative /uL Urine RBC 1 0 - 4 /hpf Urine Microscopic WBC 1 0-5 /HPF Urine Squamous Epithelial Cells Few <5 /hpf Urine Bacteria None seen None Seen /hpf Urine Glucose 4+ H Normal mg/dL X-Ray, Labs, Meds, VS Comment 84-year-old female with a history of TIA, diabetes, hypertension, hyperlipidemia and thyroid disease transferred from [facility] for evaluation of transient focal neurologic findings in altered mental status Vitals remarkable for BP 175/76 Exam unremarkable Rhythm strip independently interpreted by me: Sinus rhythm, rate 62, no ectopy. Plan is to admit the patient for brain MRI and Neurology evaluation. Time of 1ST Reevaluation: 17:31 Reevaluation 1ST: Unchanged Patient Education/Counseling: Diagnosis, Treatment Family Education/Counseling: No Family Present Departure 1 Departure Time of Disposition: 17:31 Impression: Primary Impression: TRANSIENT CEREBRAL ISCHEMIC ATTACK, UNSPECIFIED Disposition: 09 ADMITTED INPATIENT Admit to: [facility] Condition: Guarded Critical Care Note Critical Care Time?: No Stability Stability form required: No Heart Score Heart Score: Heart Score Response (Comments) Value History N/A 0 EKG N/A 0 Age N/A 0 Risk Factors N/A 0 Troponin N/A 0 Total 0 I personally scribed for CORETTA KLINE MD ([email or web address]) on 12/04/24 at 17:46. Electronically submitted by Irene Barrett ([email or web address]). I personally scribed for CORETTA KLINE MD ([email or web address]) on 12/04/24 at 19:21. Electronically submitted by Marleen Figueroa ([email or web address]). CORETTA KLINE MD Dec 04, 2024 17:34
[2024-12-04 18:07] LABS: Urine Bacteria None Seen /hpf (None Seen)
[2024-12-04 18:37] VITALS: PULSE 57; RESP 11; O2SAT 93
[2024-12-04 18:48] LABS: Urine Blood Negative /uL (Negative); Urine Clarity Clear (Clear); Urine Color Light-Yellow (Yellow); Urine Protein, UAD Negative (Negative); Urine Specific Gravity 1.039 (1.001-1.035); Urine Squamous Epithelial Cell FEW /hpf (<5); Urine Urobilinogen Normal (Negative); Urine WBC 1 /HPF (0-5); Urine pH 7.5 (5.0-9.0)
[2024-12-04 19:57] VITALS: PULSE 64; RESP 18; O2SAT 92
[2024-12-04 20:28] LABS: Basophils # (auto) 0.1 10 ^3/uL (0-0.2); Eosinophils # (auto) 0.2 10 ^3/uL (0-0.8); Eosinophils % (auto) 3.3 % (0.0-7.0); Hematocrit 37.4 % (36.0-46.0); Hemoglobin 12.2 g/dL (12.2-16.2); Lymphocytes # (auto) 2.1 10 ^3/uL (0.4-5.4); Lymphocytes % (auto) 37.2 % (10.0-50.0); Mean Corpuscular Hemoglobin 26.3 pg (28.0-32.0); Mean Corpuscular Hgb Conc. 32.5 g/dL (32.0-36.0); Mean Corpuscular Volume 80.9 fL (80.0-100.0); Monocytes # (auto) 0.5 10 ^3/uL (0-1.3); Monocytes % (auto) 8.9 % (0.0-12.0); Neutrophils # (auto) 2.8 10 ^3/uL (1.6-8.6); Neutrophils % (auto) 49.6 % (37.0-80.0); Nucleated Red Blood Cells % 0.1 %; Platelet Count (auto) 270 10^3/uL (140-450); Red Blood Cells 4.62 10^6/uL (4.0-5.20); Red Cell Distribution Width 18.7 % (11.8-14.3); White Blood Cell 5.8 10^3/uL (4.4-10.8)
[2024-12-04 20:40] LABS: Alanine Aminotransferase 22 U/L (7-40); Albumin 3.9 g/dL (3.2-4.8); Alkaline Phosphatase 65 U/L (46-116); Anion Gap 9 (5-15); Aspartate Aminotransferase 19 U/L (13-40); BUN/Creatinine Ratio 18.2 (10.0-20.0); Bilirubin, Total 0.3 mg/dL (0.2-1.0); Blood Urea Nitrogen 14 mg/dL (9-23); Calcium 9.2 mg/dL (8.7-10.4); Carbon Dioxide 26 mmol/L (20-31); Chloride 105 mmol/L (98-107); Potassium 4.2 mmol/L (3.5-5.1); Sodium 140 mmol/L (136-145)
[2024-12-04 20:41] LABS: Total Protein 6.3 g/dL (5.7-8.2)
[2024-12-04 20:43] LABS: Glucose 199 mg/dL (74-106)
[2024-12-04] MEDS: ATORVASTATIN 20 MG TAB PO SCH (22:37)
--- NOTE | 2024-12-04 23:26 | DVHHP2 ---
History of Present Illness Reason for Visit: Generalized weakness History of Present Illness 84-year-old female presents for evaluation of generalized weakness. Patient transferred from [facility] for continuity of care and disposition. Patient presents to outside facility with complaints of altered mental status and left-sided weakness. Patient was noted by daughter who was at the bedside to be progressively more lethargic since the morning today. She tried to assist the patient to her feet and noticed she had no strength in her upper or lower extremities. No slurred speech. Patient reports she felt weaker on her left side. Currently assessment and shows no focal neurologic deficits. She is alert and oriented x4. She does report feeling fatigued. Past Medical History Hypertension, thyroid, diabetes mellitus and dyslipidemia Past Surgical History Hysterectomy, cataract surgery, knee replacement and hernia repair Family History Noncontributory Smoke: No ALCOHOL: none Drugs: None Lives: with Family Review of Systems Review of Systems Review of systems are currently negative otherwise addressed in HPI. Allergies: Coded Allergies: Latex (Verified Adverse Reaction, Mild, Rash/itchiness, 06/29/24) Pt stated this was catheter related Medications Current Medications Medications Dose Ordered Sig/Shawna Route Start Time Stop Time Status Last Admin Dose Admin Nifedipine 30 mg DAILY PO 12/05/24 10:00 Levothyroxine Sodium 25 mcg QAM@0600 PO 12/05/24 06:00 Atorvastatin Calcium 20 mg HS PO 12/04/24 22:00 12/04/24 22:37 20 MG Aspirin 81 mg DAILY PO 12/05/24 10:00 Empaglifozin 10 mg DAILY PO 12/05/24 10:00 Exam Vital Signs Vital Signs Date Time Temp Pulse Resp B/P (MAP) Pulse Ox O2 Delivery O2 Flow Rate FiO2 12/04/24 18:51 58 12/04/24 18:43 11 157/63 (94) 96 12/04/24 18:37 Room Air* 0 21 12/04/24 17:15 97.5 97.5 Exam Gen: 84-year-old female in no apparent distress Skin: Warm, dry, normal color and texture, no rash. HEENT: Normocephalic atraumatic, mucous membranes moist and pink. Neck: Cervical and supraclavicular nodes normal without enlargement, trachea is midline, thyroid gland is normal without masses. Pulmonary: Clear to auscultation and percussion bilaterally. Cardiac: Regular rate and rhythm. No murmur Abdomen: Soft, nontender, nondistended, bowel sounds present all 4 quadrants, no guarding, no rigidity, no organomegaly. Extremities: No cyanosis, clubbing, no edema Neuro: Cranial nerves II through XII grossly intact, normal affect and speech, no focal motor deficits. Labs/Xrays Test 12/04/24 19:57 12/04/24 18:05 Range/Units White Blood Count 5.8 4.4-10.8 10^3/uL Red Blood Count 4.62 4.0-5.20 10^6/uL Hemoglobin 12.2 12.2-16.2 g/dL Hematocrit 37.4 36.0-46.0 % Mean Corpuscular Volume 80.9 80.0-100.0 fL Mean Corpuscular Hemoglobin 26.3 L 28.0-32.0 pg Mean Corpuscular Hemoglobin Concent 32.5 32.0-36.0 g/dL Red Cell Distribution Width 18.7 H 11.8-14.3 % Platelet Count 270 140-450 10^3/uL Mean Platelet Volume 8.1 6.9-10.8 fL Neutrophils (%) (Auto) 49.6 37.0-80.0 % Lymphocytes (%) (Auto) 37.2 10.0-50.0 % Monocytes (%) (Auto) 8.9 0.0-12.0 % Eosinophils (%) (Auto) 3.3 0.0-7.0 % Basophils (%) (Auto) 1.0 0.0-2.0 % Neutrophils # (Auto) 2.8 1.6-8.6 10 ^3/uL Lymphocytes # (Auto) 2.1 0.4-5.4 10 ^3/uL Monocytes # (Auto) 0.5 0-1.3 10 ^3/uL Eosinophils # (Auto) 0.2 0-0.8 10 ^3/uL Basophils # (Auto) 0.1 0-0.2 10 ^3/uL Nucleated Red Blood Cells 0.1 % Sodium Level 140 136-145 mmol/L Potassium Level 4.2 3.5-5.1 mmol/L Chloride Level 105 98-107 mmol/L Carbon Dioxide Level 26 20-31 mmol/L Anion Gap 9 5-15 Blood Urea Nitrogen 14 9-23 mg/dL Creatinine 0.77 0.550-1.02 mg/dL Glomerular Filtration Rate Calc 76 >90 mL/min BUN/Creatinine Ratio 18.2 10.0-20.0 Serum Glucose 199 H 74-106 mg/dL Calcium Level 9.2 8.7-10.4 mg/dL Total Bilirubin 0.3 0.2-1.0 mg/dL Aspartate Amino Transferase (AST) 19 13-40 U/L Alanine Aminotransferase (ALT) 22 7-40 U/L Alkaline Phosphatase 65 46-116 U/L Troponin I High Sensitivity 8 </=34 ng/L Total Protein 6.3 5.7-8.2 g/dL Albumin 3.9 3.2-4.8 g/dL Urine Color Light-yellow Yellow Urine Clarity Clear Clear Urine pH 7.5 5.0-9.0 Urine Specific [place] 1.039 H 1.001-1.035 Urine Protein Negative Negative Urine Ketones Negative Negative Urine Blood Negative Negative /uL Urine Nitrite Negative Negative Urine Bilirubin Negative Negative Urine Urobilinogen Normal Negative mg/dL Urine Leukocyte Esterase Negative Negative /uL Urine RBC 1 0 - 4 /hpf Urine Microscopic WBC 1 0-5 /HPF Urine Squamous Epithelial Cells Few <5 /hpf Urine Bacteria None seen None Seen /hpf Urine Glucose 4+ H Normal mg/dL CT of the brain, CT angio chest and CT angio of the head and neck from outside facility are unremarkable. Assessment/Plan Assessment/Plan Assessment Possible TIA Diabetes mellitus Accelerated hypertension Generalized weakness Thyroid Plan Admit the patient to [facility] [place] to the hospitalist Brain MRI Nephrology consultation Resume home medications Continue treatment per orders. Plan discussed with: Patient My Orders Orders - SAMEER TIJERINA [facility] Procedure Category Date Status Time Admit ADMIT 12/04/24 Transmitted 19:35 Nifedipine Er PHA 12/05/24 In Process (Procardia Xl 10:00 Levothyroxine Tablet PHA 12/05/24 In Process (Synthroid Tablet) 06:00 Atorvastatin (Lipitor) PHA 12/04/24 In Process 22:00 Aspirin Tablet PHA 12/05/24 In Process 10:00 Empagliflozin PHA 12/05/24 In Process (Jardiance) 10:00 Brain Head Wo Contrast MRI 12/04/24 Logged 19:36 * Neurology Consult CONS 12/04/24 Transmitted 19:42 Urinalysis LAB 12/04/24 Logged 19:43 Thyroid Stimulating LAB 12/04/24 Transmitted Hormone 23:20 Date of Service: Dec 04, 2024 Billing Provider: SAMEER TIJERINA Common Visit Codes: [id number] INP/OBS CARE (HIGH) SAMEER TIJERINA Dec 04, 2024 23:26
[2024-12-05 02:43] VITALS: BP 121/51; PULSE 55; RESP 16; TEMP 97.5; O2SAT 96
[2024-12-05 05:00] VITALS: BP 145/64; PULSE 59; RESP 19; TEMP 97.8; O2SAT 95
[2024-12-05] MEDS: LEVOTHYROXINE SODIUM 25 MCG TAB PO SCH (05:18)
[2024-12-05 08:58] VITALS: BP 126/68; PULSE 58; RESP 17; TEMP 98; O2SAT 95
--- NOTE | 2024-12-05 09:41 | DVH ---
EXAM: MRI BRAIN HEAD WO CONTRAST HISTORY: Rule out CVA COMPARISON: MRI BRAIN HEAD WO CONTRAST on DOS: 04/20/23 TECHNIQUE: MRI was performed utilizing multiple appropriate imaging planes and pulse sequences. FINDINGS: SUPRATENTORIAL REGION: A subcentimeter subcortical focus of restricted diffusion noted in the left o ccipital lobe reflecting acute ischemia. No intracranial hemorrhage. Scattered ill-defined FLAIR hype rintensities are noted within the bilateral periventricular region, cifuentes radiata and subcortical wh ite matter. POSTERIOR FOSSA: Unremarkable. BRAINSTEM: Unremarkable. SELLAR/SUPRASELLAR REGION: Unremarkable. VENTRICLES, CISTERNS, SULCI: Age-appropriate. ORBITS: Unremarkable. PARANASAL SINUSES: Unremarkable. MASTOID AIR CELLS: Unremarkable. VASCULATURE: Unremarkable. BONES/ SOFT TISSUES: Unremarkable. OTHER: None. IMPRESSION: 1. Punctate subcortical acute ischemia in the left occipital lobe. There is no large acute territori al ischemia or intracranial hemorrhage. 2. Mild chronic microvascular ischemic changes.
--- NOTE | 2024-12-05 09:45 | DVHINCON2 ---
Date of service: Dec 05, 2024 Referring Physician Kaushal Reason for Consultation TIA History of Present Illness Patient was not seen 84-year-old female with a history of TIA, hypertension, diabetes, hyperlipidemia and thyroid disease transferred from [facility] for evaluation of possible TIA. Patient was brought in by ambulance to [facility] after being found at home with altered mental status. Findings at [facility] included upward gaze, left-sided facial droop, left upper and lower extremity weakness. Patient was reportedly last known well around 4:00 a.m., then found with altered mental status at around 8:40 a.m. by daughter, and was complaining of chest pain and shortness a breath. Patient underwent extensive workup at [facility] including comprehensive labs which were essentially unremarkable, CT angio head and neck, CT perfusion brain scan with contrast, and CT angio chest which were unremarkable. On arrival to the ER. Patient is alert, oriented x4, denies any current vision changes, weakness or dizziness. Chief Complaint: ALOC Ms. Saenz is a 89 years old right-handed female with a history of hypertension, diabetes, dyslipidemia, the patient was admitted to the [facility] on 12/04/2024 with a chief complaint of ALOC. At this time, she is alert and fully oriented, she provided the following history with our bilingual staff's interpretation I saw on 04/21/2024 for questionable TIA (MRI negative) On 04/20/2023, when she was out feeding her chicken, she developed dizziness/lightheadedness, her face was hot, the vision turned blurry and she fell down but she denies loss of consciousness. She hurt herself, with blood in her face. The patient denies headache, chest pain, nausea, or increased sweating. She has never had a similar problem before, no history of seizure, stroke Urinalysis, 12/04/2024: Unremarkable CBC, 12/04/2024: Unremarkable CMP, 12/04/2024: Unremarkable TG/CHO L/LDL/HDL, 04/2023: 146/171/91/58 TSH, 04/21/2023: 3.01 EEG, 04/22/2023: Normal MRI head, 04/20/2023: No acute infarct. Remote infarct of the right caudate head. Mild cerebral atrophy with nonspecific white matter changes. Remote microhemorrhage of the right temporal lobe Hypertension, diabetes, dyslipidemia Hysterectomy, hernia repair Heart attack, cancer She is not a tobacco smoker, no history of alcohol recreational substance abuse As above, the other systems are negative GENERAL EXAM: General: the patient is well developed and nourished. No acute distress. HEENT: Normocephalic, neck is supple, no carotid bruits. No mass. RESPIRATORY: Normal respiratory effort with symmetrical lung expansion. Lungs clear to auscultation. CARDIOVASCULAR: Regular rate and rhythm with no murmurs. S1, S2. ABDOMEN: Soft, nontender, normal bowel sound NEUROLOGICAL: MENTAL STATUS: Awake and alert. Oriented to person, place, time and general circumstances. Able to give personal history. SPEECH, LANGUAGE, HIGHER CORTICAL FUNCTION: no aphasia or dysathria. CRANIAL NERVES: #2: Intact visual irwin to confrontation. The optic discs were sharp #3,4,6: Pupils are equal, round and reactive. EOMs full and conjugate. No nystagmus. #5: Facial sensation intact in all three divisions bilaterally. Mandibular strength intact. #7: Facial muscles symmetrical and strength intact. #8: Hearing grossly normal to voice. #9,10: Uvula and soft palate rise in the midline. Swallow and voice are normal. #11: Trapezius and sternomastoid strength intact bilaterally. #12: Tongue midline. No fasciculations or atrophy. SENSATION: Sensation to touch and pinprick is normal. MOTOR: Normal tone in the upper and lower extremity. Normal muscle bulk. No fasciculations. No abnormal movements or posturing. Muscle strength of the major groups in the upper extremities is 5/5. Muscle strength of the major groups in the lower extremities is 5/5. REFLEXES: Deep tendon reflexes normal and symmetrical. No pathological reflexes. CEREBELLAR/COORDINATION: Finger to nose is normal bilaterally. GAIT/STATION: deferred Dizziness Presyncopal event ? Orthostatic hypotension Rule out a cardiac etiology Rule out partial seizure Monitoring Supportive treatment Telemetry EEG Orthostatic hypotension Cardiac evaluation Prognosis poor This medical document was created using an electronic medical record system with MEEP[employer] system. Although this document has been carefully reviewed, there may still be some phonetic and typographical errors. These areas are purely typographical due to imperfections of the software programs, and do not reflect any compromise in the patient's medical care. Family History: Cancer G8 SISTER FH: heart attack G8 FATHER ( from Heart Attack) FH: liver disease G8 MOTHER, Onset:Unknown ( from liver failure) Allergies: Coded Allergies: Latex (Verified Adverse Reaction, Mild, Rash/itchiness, 06/29/24) Pt stated this was catheter related Home Meds Active Scripts Clopidogrel Bisulfate (Plavix) 75 Mg Tab, 1 TAB PO DAILY, #30 TAB 0 Refills Prov:GEETA JOHNSON MD 12/05/24 Atorvastatin Calcium (ATORVASTATIN CALCIUM) 40 Mg Tab, 1 TAB PO QPM, #90 TAB 3 Refills Prov:GEETA JOHNSON MD 12/05/24 Aspirin (Aspirin Low Dose) 81 Mg Tab, 81 MG PO DAILY for 30 Days, #30 TAB Prov:GEETA JOHNSON MD 12/05/24 Lidocaine (LIDODERM 5% TOPICAL PATCH) 1 Patch Ph, 1 PATCH TOP DAILY, #30 PATCH 1 Refill Prov:ALEX WICK MD 03/12/24 Fludrocortisone Acetate (Fludrocortisone Acetate) 0.1 Mg Tab, 0.1 MG PO DAILY for 30 Days, #30 TAB Prov:CARLEY CERDA MD 04/23/23 Reported Medications Solifenacin Succinate (Solifenacin Succinate) 10 Mg Tab, 10 MG PO, TAB 06/29/24 Nifedipine (Nifedipine ER) 30 Mg Tab, 30 MG PO DAILY for HYPERTENSION 08/19/21 Lorazepam (ATIVAN TABLET) 0.5 Mg Tb, 1 TAB PO BIDPRN PRN for ANXIETY 08/17/21 Insulin Regular (Human) (Novolin R) 100 Unit/Ml Inj, 5 UNIT SC BS for DIABETES 04/20/18 Escitalopram Oxalate (ESCITALOPRAM OXALATE) 20 Mg Tab, 20 MG PO QAM for DEPRESSION 04/20/18 Levothyroxine Sodium (Levothyroxine Sodium) 25 Mcg Tab, 1 TAB PO QAM for HYPOTHYROIDISM 04/25/17 Mirtazapine (Mirtazapine Oral Disintegrating Tablet) 15 Mg Tab, 1 TAB PO QPM for DEPRESSION 04/25/17 Metformin Hydrochloride (Metformin Hcl) 850 Mg Tab, 1 TAB PO TID for DIABETES MAY RESUME MEDICINE IN 3 DAYS ON Tuesday08/22/21 09/18/15 Discontinued Reported Medications Ciprofloxacin Hcl (Cipro) 500 Mg Tab, 500 MG PO 06/29/24 Simvastatin (Simvastatin) 20 Mg Tab, 20 MG PO QPM for HIGH CHOLESTEROL 04/20/18 Discontinued Scripts Ibuprofen (Ibuprofen) 400 Mg Tab, 1 TAB PO Q8HPRN PRN for 10 Days, #30 TAB Prov:ALEX WICK MD 03/12/24 Current Medications Current Medications Medications (Trade) Dose Ordered Sig/Shawna Route PRN Reason Start Time Stop Time Status Last Admin Nifedipine (Procardia Xl (Time-Release)) 30 mg DAILY PO 12/05/24 10:00 Levothyroxine Sodium (Synthroid Tablet) 25 mcg QAM@0600 PO 12/05/24 06:00 12/05/24 05:18 Atorvastatin Calcium (Lipitor) 20 mg HS PO 12/04/24 22:00 12/04/24 22:37 Aspirin 81 mg DAILY PO 12/05/24 10:00 Empaglifozin (Jardiance) 10 mg DAILY PO 12/05/24 10:00 Vital Signs Vital Signs Date Time Temp Pulse Resp B/P (MAP) Pulse Ox O2 Delivery O2 Flow Rate FiO2 12/05/24 08:58 98.0 58 17 126/68 (87) 95 98.0 12/05/24 02:43 Room Air* 0 21 Labs/Diagnostic Data Labs Test 12/04/24 19:57 12/04/24 18:05 Range/Units White Blood Count 5.8 4.4-10.8 10^3/uL Red Blood Count 4.62 4.0-5.20 10^6/uL Hemoglobin 12.2 12.2-16.2 g/dL Hematocrit 37.4 36.0-46.0 % Mean Corpuscular Volume 80.9 80.0-100.0 fL Mean Corpuscular Hemoglobin 26.3 L 28.0-32.0 pg Mean Corpuscular Hemoglobin Concent 32.5 32.0-36.0 g/dL Red Cell Distribution Width 18.7 H 11.8-14.3 % Platelet Count 270 140-450 10^3/uL Mean Platelet Volume 8.1 6.9-10.8 fL Neutrophils (%) (Auto) 49.6 37.0-80.0 % Lymphocytes (%) (Auto) 37.2 10.0-50.0 % Monocytes (%) (Auto) 8.9 0.0-12.0 % Eosinophils (%) (Auto) 3.3 0.0-7.0 % Basophils (%) (Auto) 1.0 0.0-2.0 % Neutrophils # (Auto) 2.8 1.6-8.6 10 ^3/uL Lymphocytes # (Auto) 2.1 0.4-5.4 10 ^3/uL Monocytes # (Auto) 0.5 0-1.3 10 ^3/uL Eosinophils # (Auto) 0.2 0-0.8 10 ^3/uL Basophils # (Auto) 0.1 0-0.2 10 ^3/uL Nucleated Red Blood Cells 0.1 % Sodium Level 140 136-145 mmol/L Potassium Level 4.2 3.5-5.1 mmol/L Chloride Level 105 98-107 mmol/L Carbon Dioxide Level 26 20-31 mmol/L Anion Gap 9 5-15 Blood Urea Nitrogen 14 9-23 mg/dL Creatinine 0.77 0.550-1.02 mg/dL Glomerular Filtration Rate Calc 76 >90 mL/min BUN/Creatinine Ratio 18.2 10.0-20.0 Serum Glucose 199 H 74-106 mg/dL Calcium Level 9.2 8.7-10.4 mg/dL Total Bilirubin 0.3 0.2-1.0 mg/dL Aspartate Amino Transferase (AST) 19 13-40 U/L Alanine Aminotransferase (ALT) 22 7-40 U/L Alkaline Phosphatase 65 46-116 U/L Troponin I High Sensitivity 8 </=34 ng/L Total Protein 6.3 5.7-8.2 g/dL Albumin 3.9 3.2-4.8 g/dL Thyroid Stimulating Hormone (TSH) 1.57 0.55-4.78 uIU/mL Urine Color Light-yellow Yellow Urine Clarity Clear Clear Urine pH 7.5 5.0-9.0 Urine Specific [place] 1.039 H 1.001-1.035 Urine Protein Negative Negative Urine Ketones Negative Negative Urine Blood Negative Negative /uL Urine Nitrite Negative Negative Urine Bilirubin Negative Negative Urine Urobilinogen Normal Negative mg/dL Urine Leukocyte Esterase Negative Negative /uL Urine RBC 1 0 - 4 /hpf Urine Microscopic WBC 1 0-5 /HPF Urine Squamous Epithelial Cells Few <5 /hpf Urine Bacteria None seen None Seen /hpf Urine Glucose 4+ H Normal mg/dL Plan discussed with: LIZABETH Syed MD Dec 05, 2024 09:45
[2024-12-05] MEDS: ASPirin 81 mg TAB PO SCH (10:11)
[2024-12-05] MEDS: EMPAGLIFLOZIN 10 MG TAB PO SCH (10:12)
[2024-12-05] MEDS: NIFEdipine ER 30 MG TAB PO SCH (10:14)
[2024-12-05] MEDS ORDERED: ASPI-325 PO (11:51)
[2024-12-05] MEDS ORDERED: ATOR40TA52 PO (11:51)
[2024-12-05] MEDS ORDERED: CLOP75TA28 PO (11:52)
--- NOTE | 2024-12-05 11:56 | DVHDS2 ---
Discharge Summary Date of Admission Dec 04, 2024 at 19:35 Date of Discharge: Dec 05, 2024 Admitting Diagnosis Punctate subcortical acute ischemia in the left occipital lobe Labs/Diagnostic Data: Laboratory Results Test 12/04/24 19:57 12/04/24 18:05 White Blood Count 5.8 10^3/uL (4.4-10.8) Red Blood Count 4.62 10^6/uL (4.0-5.20) Hemoglobin 12.2 g/dL (12.2-16.2) Hematocrit 37.4 % (36.0-46.0) Mean Corpuscular Volume 80.9 fL (80.0-100.0) Mean Corpuscular Hemoglobin 26.3 pg (28.0-32.0) Mean Corpuscular Hemoglobin Concent 32.5 g/dL (32.0-36.0) Red Cell Distribution Width 18.7 % (11.8-14.3) Platelet Count 270 10^3/uL (140-450) Mean Platelet Volume 8.1 fL (6.9-10.8) Neutrophils (%) (Auto) 49.6 % (37.0-80.0) Lymphocytes (%) (Auto) 37.2 % (10.0-50.0) Monocytes (%) (Auto) 8.9 % (0.0-12.0) Eosinophils (%) (Auto) 3.3 % (0.0-7.0) Basophils (%) (Auto) 1.0 % (0.0-2.0) Neutrophils # (Auto) 2.8 10 ^3/uL (1.6-8.6) Lymphocytes # (Auto) 2.1 10 ^3/uL (0.4-5.4) Monocytes # (Auto) 0.5 10 ^3/uL (0-1.3) Eosinophils # (Auto) 0.2 10 ^3/uL (0-0.8) Basophils # (Auto) 0.1 10 ^3/uL (0-0.2) Nucleated Red Blood Cells 0.1 % Sodium Level 140 mmol/L (136-145) Potassium Level 4.2 mmol/L (3.5-5.1) Chloride Level 105 mmol/L (98-107) Carbon Dioxide Level 26 mmol/L (20-31) Anion Gap 9 (5-15) Blood Urea Nitrogen 14 mg/dL (9-23) Creatinine 0.77 mg/dL (0.550-1.02) Glomerular Filtration Rate Calc 76 mL/min (>90) BUN/Creatinine Ratio 18.2 (10.0-20.0) Serum Glucose 199 mg/dL (74-106) Calcium Level 9.2 mg/dL (8.7-10.4) Total Bilirubin 0.3 mg/dL (0.2-1.0) Aspartate Amino Transferase (AST) 19 U/L (13-40) Alanine Aminotransferase (ALT) 22 U/L (7-40) Alkaline Phosphatase 65 U/L (46-116) Troponin I High Sensitivity 8 ng/L (</=34) Total Protein 6.3 g/dL (5.7-8.2) Albumin 3.9 g/dL (3.2-4.8) Thyroid Stimulating Hormone (TSH) 1.57 uIU/mL (0.55-4.78) Urine Color Light-yellow (Yellow) Urine Clarity Clear (Clear) Urine pH 7.5 (5.0-9.0) Urine Specific [place] 1.039 (1.001-1.035) Urine Protein Negative (Negative) Urine Ketones Negative (Negative) Urine Blood Negative /uL (Negative) Urine Nitrite Negative (Negative) Urine Bilirubin Negative (Negative) Urine Urobilinogen Normal mg/dL (Negative) Urine Leukocyte Esterase Negative /uL (Negative) Urine RBC 1 /hpf (0 - 4) Urine Microscopic WBC 1 /HPF (0-5) Urine Squamous Epithelial Cells Few /hpf (<5) Urine Bacteria None seen /hpf (None Seen) Urine Glucose 4+ mg/dL (Normal) Other Laboratory Tests 12/04/24 19:57 Brief Hx & Hospital Course: 84-year-old female presents for evaluation of generalized weakness. Patient transferred from [facility] for continuity of care and disposition. Patient presents to outside facility with complaints of altered mental status and left-sided weakness. Patient was noted by daughter who was at the bedside to be progressively more lethargic since the morning today. She tried to assist the patient to her feet and noticed she had no strength in her upper or lower extremities. No slurred speech. Patient reports she felt weaker on her left side. Currently assessment and shows no focal neurologic deficits. She is alert and oriented x4. Patient underwent a MRI of the Brain, see report below. Patients symptoms have resolved, daughter at bedside. Patient is ambulating, will discharge with ASA and Plavix. Operations or Procedures EXAM: MRI BRAIN HEAD WO CONTRAST HISTORY: Rule out CVA COMPARISON: MRI BRAIN HEAD WO CONTRAST on DOS: 04/20/23 TECHNIQUE: MRI was performed utilizing multiple appropriate imaging planes and pulse sequences. FINDINGS: SUPRATENTORIAL REGION: A subcentimeter subcortical focus of restricted diffusion noted in the left occipital lobe reflecting acute ischemia. No intracranial hemorrhage. Scattered ill-defined FLAIR hyperintensities are noted within the bilateral periventricular region, cifuentes radiata and subcortical white matter. POSTERIOR FOSSA: Unremarkable. BRAINSTEM: Unremarkable. SELLAR/SUPRASELLAR REGION: Unremarkable. VENTRICLES, CISTERNS, SULCI: Age-appropriate. ORBITS: Unremarkable. PARANASAL SINUSES: Unremarkable. MASTOID AIR CELLS: Unremarkable. VASCULATURE: Unremarkable. BONES/ SOFT TISSUES: Unremarkable. OTHER: None. IMPRESSION: 1. Punctate subcortical acute ischemia in the left occipital lobe. There is no large acute territorial ischemia or intracranial hemorrhage. 2. Mild chronic microvascular ischemic changes. Condition at Discharge: Poor Final Diagnosis/Problems List Acute CVA DM2 Dyslipidemia Discharge Disposition: Home with Health Services Discharge Instruct/Medications Diet: Consistent carbohydrate Activity: Light activity Follow Up/Referral: PCP in 1 week Medications: See [facility] Discharge Statement: "Patient was advised to return to the ER or call 911 if any headaches, dizziness, shortness of breath, chest pain, abdominal pain, bleeding, fevers, or worsening of medical condition. Patient was counseled about treatment plan, medications, possible side effects, patientverbalized understanding. All questions were answered to the best of my ability. This discharge took greater then 30 minutes in planning, reviewing documentation, counseling the patient, and discussing with other team members." ASSESSMENT ASSESSMENT Assessment Date of Service: Dec 05, 2024 Billing Provider: GEETA JOHNSON MD Common Visit Codes: 19972-KCK/OBS DISCH DAY >30min GEETA JOHNSON MD Dec 05, 2024 11:56
[2024-12-05 13:32] VITALS: BP 147/69; PULSE 57; RESP 18; TEMP 98.2; O2SAT 95
[2024-12-05 13:33] VITALS: BP_SYST 133; BP_SYST 147; BP_SYST 19; BP_DIAS 61; BP_DIAS 69; PULSE 66; RESP 19; TEMP 98.5; O2SAT 97
[2024-12-05 17:52] VITALS: BP 133/61; PULSE 69; RESP 18; TEMP 98.7; O2SAT 95
== END 2024-12-05 18:05 | disposition home or self-care (01) | DRG 65 ==
LOC: EDBD 16:32 → ER 16:32 → OVERFLOW 19:35 → CENTRAL 12-05 02:40 → TELE-CENTR 12-05 07:27
PROVIDERS: ADMIT Internal Medicine; ATTEND Internal Medicine
DX: I63.89 Other cerebral infarction (principal); G81.94 Hemiplegia, unspecified affecting left nondominant side; E11.9 Type 2 diabetes mellitus without complications; I10 Essential (primary) hypertension; E78.5 Hyperlipidemia, unspecified; Z96.653 Presence of artificial knee joint, bilateral; Z90.710 Acquired absence of both cervix and uterus; Z88.8 Allergy status to other drugs, medicaments and biological substances; Z79.4 Long term (current) use of insulin; Z79.899 Other long term (current) drug therapy; Z82.49 Family history of ischemic heart disease and other diseases of the circulatory system; Z63.4 Disappearance and death of family member
CPT/HCPCS: 36415; 70551; 80053; 81001; 84443; 84484; 85025; 87081; 97163; G0378

== ENCOUNTER 2025-06-21 08:15 | Outpatient (CLI) | payer OTHER, MEDICAID ==
[~2025-06-21 08:15] MED LIST changes: +ASPI-325 PO; +ATOR40TA52 PO; -CIPR-173 PO; +CLOP75TA28 PO; -IBUP-1453 PO; -SIMV20TA20 PO
[2025-06-21 09:47] LABS: Urine Protein, UAD Negative (Negative)
[2025-06-21 10:08] LABS: Hematocrit 33.1 % (36.0-46.0); Hemoglobin 10.8 g/dL (12.2-16.2); Mean Corpuscular Hemoglobin 26.9 pg (28.0-32.0); Mean Corpuscular Volume 82.6 fL (80.0-100.0); Nucleated Red Blood Cells % 0.1 %
[2025-06-21 10:25] LABS: Alanine Aminotransferase 12 U/L (7-40); Alkaline Phosphatase 67 U/L (46-116); Anion Gap 8 (5-15); BUN/Creatinine Ratio 19.7 (10.0-20.0); Blood Urea Nitrogen 14 mg/dL (9-23); Calcium 9.6 mg/dL (8.7-10.4); Carbon Dioxide 27 mmol/L (20-31); Chloride 105 mmol/L (98-107); Glucose 84 mg/dL (74-106); Potassium 4.5 mmol/L (3.5-5.1); Sodium 140 mmol/L (136-145); Total Protein 7.5 g/dL (5.7-8.2); Triglycerides 76 mg/dL (< 150)
[2025-06-21 10:26] LABS: Albumin 4.2 g/dL (3.2-4.8); Bilirubin, Direct 0.1 mg/dL (<0.3); Bilirubin, Total 0.6 mg/dL (0.2-1.0); Cholesterol 110 mg/dL (< 200); HDL Cholesterol 58 mg/dL (40-59)
== END 2025-06-21 17:00 | disposition home or self-care (01) ==
LOC: LAB 08:15
PROVIDERS: ATTEND Internal Medicine Cardiovascular Disease
DX: I10 Essential (primary) hypertension (principal); D51.3 Other dietary vitamin B12 deficiency anemia; D64.9 Anemia, unspecified; E11.9 Type 2 diabetes mellitus without complications; E55.9 Vitamin D deficiency, unspecified; R00.2 Palpitations; R53.1 Weakness; R30.0 Dysuria
CPT/HCPCS: 36415; 80053; 80061; 80076; 81003; 83036; 84439; 84443; 85025

== ENCOUNTER 2025-07-07 13:14 | Emergency (ER) | payer OTHER, MEDICAID ==
[~2025-07-07] VITALS: Ht 152.4 cm; Wt 54.0 kg
--- NOTE | 2025-07-07 14:28 | ED.PDOC ---
HPI Comments 85 y/o F, with PMHx of DM, HLD, and HTN presents to the ED for CC of hypertension. Per patient's son, patient has been c/o elevated blood pressure readings, elevated blood sugar readings, and right sided flank pain that radiates to her back x3days. Patient's son further relays, patient expresses symptoms maybe due to insomnia and that symptoms usually resolve with rest. Upon arrival to the ED, all VS are WNL. Patient denies chest pain, shortness of breath, urinary symptoms, or flu-like symptoms. No other symptoms or modifying factors are present at this time. Chief Complaint: High Blood Pressure Time Seen by MD: 14:20 Primary Care Provider: UNKNOWN Reviewed Notes: Nurses Notes, Medications, Allergies Allergies: Coded Allergies: Latex (Verified Adverse Reaction, Mild, Rash/itchiness, 06/29/24) Pt stated this was catheter related Home Meds Active Scripts Clopidogrel Bisulfate (Plavix) 75 Mg Tab, 1 TAB PO DAILY, #30 TAB 0 Refills Prov:GEETA JOHNSON MD 12/05/24 Atorvastatin Calcium (ATORVASTATIN CALCIUM) 40 Mg Tab, 1 TAB PO QPM, #90 TAB 3 Refills Prov:GEETA JOHNSON MD 12/05/24 Aspirin (Aspirin Low Dose) 81 Mg Tab, 81 MG PO DAILY for 30 Days, #30 TAB Prov:GEETA JOHNSON MD 12/05/24 Lidocaine (LIDODERM 5% TOPICAL PATCH) 1 Patch Ph, 1 PATCH TOP DAILY, #30 PATCH 1 Refill Prov:ALEX WICK MD 03/12/24 Fludrocortisone Acetate (Fludrocortisone Acetate) 0.1 Mg Tab, 0.1 MG PO DAILY for 30 Days, #30 TAB Prov:CARLEY CERDA MD 04/23/23 Reported Medications Solifenacin Succinate (Solifenacin Succinate) 10 Mg Tab, 10 MG PO, TAB 06/29/24 Nifedipine (Nifedipine ER) 30 Mg Tab, 30 MG PO DAILY for HYPERTENSION 08/19/21 Lorazepam (ATIVAN TABLET) 0.5 Mg Tb, 1 TAB PO BIDPRN PRN for ANXIETY 08/17/21 Insulin Regular (Human) (Novolin R) 100 Unit/Ml Inj, 5 UNIT SC BS for DIABETES 04/20/18 Escitalopram Oxalate (ESCITALOPRAM OXALATE) 20 Mg Tab, 20 MG PO QAM for DEPRESSION 04/20/18 Levothyroxine Sodium (Levothyroxine Sodium) 25 Mcg Tab, 1 TAB PO QAM for HYPOTHYROIDISM 04/25/17 Mirtazapine (Mirtazapine Oral Disintegrating Tablet) 15 Mg Tab, 1 TAB PO QPM for DEPRESSION 04/25/17 Metformin Hydrochloride (Metformin Hcl) 850 Mg Tab, 1 TAB PO TID for DIABETES MAY RESUME MEDICINE IN 3 DAYS ON Tuesday08/22/21 09/18/15 Information Source: Patient, Relative (Child) Mode of Arrival: Ambulatory Severity: Moderate Timing: Days Duration: Since onset Prehospital treatment: None Onset: At Rest Cardiac Risk Factors: HTN, Diabetes History of: None Modifying Factors: Nothing Associated Signs and Symptoms: None Past Medical History PAST MEDICAL HISTORY: DM, High Lipids, HTN, Thyroid Surgical History: Hernia Repair, Hysterectomy HOTEL SERVICE SUPERVISOR History: No Pertinent HOTEL SERVICE SUPERVISOR History Family History Family History: Reviewed,noncontributory to illness Social History Smoker: Non-Smoker Alcohol: Denies ETOH Use Drugs: Denies Drug Use Lives In: Home Constitutional: denies: chills, diaphoresis, fatigue, fever, malaise, sweats, weakness, others EENTM: denies: blurred vision, double vision, ear bleeding, ear discharge, ear drainage, ear pain, ear ringing, eye pain, eye redness, hearing loss, mouth pain, mouth swelling, nasal discharge, nose bleeding, nose congestion, nose pain, photophobia, tearing, throat pain, throat swelling, voice changes, others Respiratory: denies: cough, hemoptysis, orthopnea, SOB at rest, shortness of breath, SOB with excertion, stridor, wheezing, others Cardiovascular: denies: chest pain, dizzy spells, diaphoresis, Dyspnea on exertion, edema, irregular heart beat, left arm pain, lightheadedness, palp itations, PND, syncope, others Gastrointestinal: denies: abdomen distended, abdominal pain, blood streaked bowels, constipated, diarrhea, dysphagia, difficulty swallowing, hematemesis, melena, nausea, poor appetite, poor fluid intake, rectal bleeding, rectal pain, vomiting, others Genitourinary: denies: abnormal vagina bleeding, burning, dyspareunia, dysuria, flank pain, frequency, hematuria, incontinence, pain, , vagina discharge, urgency, others Neurological: denies: dizziness, fainting, headache, left sided numbness, left sided weakness, numbness, paresthesia, pre-existing deficit, right sided numbness, right sided weakness, seizure, speech problems, tingling, tremors, weakness, others Musculoskeletal: denies: back pain, gout, joint pain, joint swelling, muscle pain, muscle stiffness, neck pain, others Integumetry: denies: bruises, change in color, change in hair/nails, dryness, laceration, lesions, lumps, rash, wounds, others Allergic/Immunocompromised: denies: Difficulty Healing, Frequent Infections, Hives, Itching, others Hematologic/Lymphatic: denies: anemia, blood clots, easy bleeding, easy br uising, swollen glands, others Endocrine: denies: excessive hunger, excessive sweating, excessive thirst, excessive urination, flushing, intolerance to cold, intolerance to heat, unexplained weight gain, unexplained weight loss, others Psychiatric: denies: anxiety, bipolar disorder, depression, hopeless, panic disorder, schizophrenia, sleepless, suicidal, others All Other Systems: Reviewed and Negative Physical Exam General Appearance: Moderate Distress HEENT: Normal ENT Inspection, Pharynx Normal, TMs Normal Neck: Full Range of Motion, Non-Tender, Normal, Normal Inspection Respiratory: Chest Non-Tender, Lungs Clear, No Accessory Muscle Use, No Respiratory Distress, Normal Breath Sounds Cardiovascular: No Edema, No JVD, No Murmur, No Gallop, Normal Peripheral Pulses, Regular Rate/Rhythm Breast Exam: Deferred Gastrointestinal: No Organomegaly, Non Tender, No Pulsatile Mass, Normal Bowel Sounds, Soft Genitalia: Deferred Pelvic: Deferred Rectal: Deferred Extremities: No calf tenderness, Normal capillary refill, Normal inspection, Normal range of motion, Non-tender, No pedal edema Musculoskeletal : Apperance: Normal Neurologic: Alert, therapeutic sales specialist II-XII nml as Tested, No Motor Deficits, Normal Affect, Normal Mood, No Sensory Deficits Cerebellar Function: Normal Reflexes: Normal Skin: Dry, Normal Color, Warm Peripheral Pulses: 3+ Radial (R), 3+ Radial (L) Lymphatic: No Adenopathy Was a procedure done? Was a procedure done?: No CP Differential Dx Differential Diagnosis: A-fib, A-Flutter, Angina, Anxiety / Panic Attack, Atrial Dysrhythmia, Electrolyte Disorder Differential Diagnosis: HTN Essential, HTN Accelerated Differential Diagnosis: Chest Wall Pain, Costochondritis, Esophageal reflux/spasm, Gastritis X-Ray, Labs, Meds, VS Vital Signs Date Time Temp Pulse Resp B/P (MAP) Pulse Ox O2 Delivery O2 Flow Rate FiO2 07/07/25 17:00 97.9 72 18 124/42 (69) 98 97.9 07/07/25 13:25 74 07/07/25 13:16 97.1 123 96 123/70 76 97.1 Lab Test 07/07/25 13:30 Range/Units POC Glucose 133 H 70-106 mg/dl Patient alert. Complaining of leg pain. Vitals stable. Answering questions. She does not have mild swelling of the right lower extremity compared to the left. No shortness a breath. Good lung expansion. No distress. Saturation pristine. Was told to correct the notes on pulse ox. She is comfortable. Was told to follow up with her primary care physician. Was told to come back if there is any problem. [place] [id number] Ph: [phone] DIAGNOSTIC IMAGING Diagnostic Imaging Report : [id number] Signed PATIENT: CYNDEE GARCÍA ACCT: [id number] UNIT: [id number] : 1940 LOC: ER ROOM / BED: / AGE / SEX: 85 / F ADM STATUS: REG ER SERVICE 1451 ORDERING PHYSICIAN: JOSHUA ABDI MD PROCEDURE(s): BLDVT - BiLat Lower DVT REASON: dvt ORDER NUMBER(s): [id number], ACCESSION NUMBER(s): [id number] US BiLat Lower DVT HISTORY: dvt COMPARISON: RLDVT on DOS: 09/27/22, RT LOWER DVT on DOS: 09/27/22 TECHNIQUE: Duplex doppler evaluation of the deep venous system of the lower extremity from the common femoral veins, superficial femoral vein, great saphenous vein, deep femoral vein, popliteal vein, and calf veins, including color doppler and spectral/pulsed waveform analysis, was performed. FINDINGS: Right: - Common femoral vein: Compressible - Deep femoral vein: Compressible - Femoral vein: Compressible - Popliteal vein: Compressible - Posterior tibial vein: Waveforms present - Other: Nothing Left: - Common femoral vein: Compressible - Deep femoral vein: Compressible - Femoral vein: Compressible - Popliteal vein: Compressible - Posterior tibial vein: Waveforms present - Other: Nothing IMPRESSION: No right or left lower extremity deep venous thrombosis. ATED BY: GREGG BOJORQUEZ MD DICTATED DATE/TIME: 07/07/25 1606 SIGNED BY: GREGG BOJORQUEZ MD SIGNED DATE/TIME: 07/07/25 160 CC: [place] [id number] Ph: [phone] DIAGNOSTIC IMAGING Diagnostic Imaging Report : [id number] Signed PATIENT: CYNDEE GARCÍA ACCT: [id number] UNIT: [id number] : 1940 LOC: ER ROOM / BED: / AGE / SEX: 85 / F ADM STATUS: REG ER SERVICE 1451 ORDERING PHYSICIAN: JOSHUA ABDI MD PROCEDURE(s): CXRP - CHEST PORTABLE REASON: sob ORDER NUMBER(s): [id number], ACCESSION NUMBER(s): [id number] CHEST RADIOGRAPH REASON FOR EXAM: Shortness of breath COMPARISON: XY CHEST XRAY 1 VIEW on DOS: 03/12/24, CHEST PORTABLE on DOS: 04/17/21, CHEST TWO VIEWS ROUTINE on DOS: 04/17/19 TECHNIQUE: One view of the chest is provided FINDINGS: The cardiomediastinal silhouette is within normal limits for technique. There is no focal airspace disease. There is no significant pleural effusion. No acute bony abnormality is identified. There are severe degenerative changes at the shoulders. IMPRESSION: No radiographic evidence of acute cardiopulmonary process. ATED BY: MANJEET ROSE MD DICTATED DATE/TIME: 07/07/251529 SIGNED BY: MANJEET ROSE MD SIGNED DATE/TIME: 07/07/251529 CC: Time of 1ST Reevaluation: 14:50 Reevaluation 1ST: Unchanged Patient Education/Counseling: Diagnosis, Treatment, Need For Follow Up Family Education/Counseling: Need For Follow Up SEPSIS Sepsis Screen Date sepsis recognized/suspect: Jul 07, 2025 Time Sepsis recognized/suspect: 6 Recent Procedure: No On Antibiotic Therapy: No Respiratory Rate >20: No Heart Rate >90: No Temp<36 C (96.8 F) or >38.3 C: No SBP <90 or MAP <65 mmHG: No New Acute Mental Status Change: No Is the patient on CPAP, BIPAP,: No Physician Orders Electrocardigram (07/07/25 13:36) Bilat Lower Dvt (07/07/25 14:51) Chest Portable (07/07/25 14:51) Vital Signs Date Time Temp Pulse Resp B/P (MAP) Pulse Ox O2 Delivery O2 Flow Rate FiO2 07/07/25 17:00 97.9 72 18 124/42 (69) 98 97.9 07/07/25 13:25 74 07/07/25 13:16 97.1 123 96 123/70 76 97.1 Departure 1 Departure Time of Disposition: 15:54 Impression: Primary Impression: Musculoskeletal back pain Disposition: HOME / SELF CARE / HOMELESS Condition: Good Discharged With: Self Critical Care Note Critical Care Time?: No Stability Stability form required: No Heart Score Heart Score: Heart Score Response (Comments) Value History Moderate Suspicious 1 EKG N/A 0 Age >65 2 Risk Factors 1 or 2 risk factors 1 Troponin N/A 0 Total 4 I personally scribed for JOSHUA ABDI MD ([email or web address]) on 07/07/25 at 14:28. Electronically submitted by Marleen Figuerao ([employer]). I personally scribed for JOSHUA ABDI MD ([email or web address]) on 07/07/25 at 14:31. Electronically submitted by Marleen Figueroa ([employer]). I personally scribed for JOSHUA ABDI MD ([email or web address]) on 07/07/25 at 14:58. Electronically submitted by Marleen Figueroa ([employer]). I personally scribed for JOSHUA ABDI MD ([email or web address]) on 07/07/25 at 16:45. Electronically submitted by Marleen Figueroa ([employer]). I personally scribed for JOSHUA ABDI MD ([email or web address]) on 07/07/25 at 16:46. Electronically submitted by Marleen Figueora ([email or web address]). JOSHUA ABDI MD Jul 07, 2025 14:28
--- NOTE | 2025-07-07 15:32 | DVH ---
CHEST RADIOGRAPH REASON FOR EXAM: Shortness of breath COMPARISON: XY CHEST XRAY 1 VIEW on DOS: 03/12/24, CHEST PORTABLE on DOS: 04/17/21, CHEST TWO VIEWS ROUTI NE on DOS: 04/17/19 TECHNIQUE: One view of the chest is provided FINDINGS: The cardiomediastinal silhouette is within normal limits for technique. There is no focal a irspace disease. There is no significant pleural effusion. No acute bony abnormality is identified. T here are severe degenerative changes at the shoulders. IMPRESSION: No radiographic evidence of acute cardiopulmonary process.
--- NOTE | 2025-07-07 16:08 | DVH ---
US BiLat Lower DVT HISTORY: dvt COMPARISON: RLDVT on DOS: 09/27/22, RT LOWER DVT on DOS: 09/27/22 TECHNIQUE: Duplex doppler evaluation of the deep venous system of the lower extremity from the common femoral veins, superficial femoral vein, great saphenous vein, deep femoral vein, popliteal vein, an d calf veins, including color doppler and spectral/pulsed waveform analysis, was performed. FINDINGS: Right: - Common femoral vein: Compressible - Deep femoral vein: Compressible - Femoral vein: Compressible - Popliteal vein: Compressible - Posterior tibial vein: Waveforms present - Other: Nothing Left: - Common femoral vein: Compressible - Deep femoral vein: Compressible - Femoral vein: Compressible - Popliteal vein: Compressible - Posterior tibial vein: Waveforms present - Other: Nothing IMPRESSION: No right or left lower extremity deep venous thrombosis.
[2025-07-07 17:00] VITALS: BP 124/42; PULSE 72; RESP 18; TEMP 97.9; O2SAT 98
--- NOTE | 2025-07-08 02:32 | ECG ---
[facility] Test Date: 2025-07-07 Test Time: 13:25:48 Pat Name: CYNDEE GARCÍA Department: Room: Gender: F Manager Union: [id number] : 1940 Requested By: JONNY QUIÑONES Order Number: [id number] Reading MD: David Jasso Measurements Intervals [place] Rate: 74 P: 75 MS: 136 QRS: 77 QRSD: 80 T: 74 QT: 400 QTc: 444 Interpretive Statements Sinus rhythm Electronically Signed On 07-11-2025 22:02:02 PDT by David Jasso Please click the below link to view image of tracing.
== END 2025-07-07 17:37 | disposition home or self-care (01) ==
LOC: ER 13:14
DX: M54.9 Dorsalgia, unspecified (principal); I10 Essential (primary) hypertension; E78.5 Hyperlipidemia, unspecified; E03.9 Hypothyroidism, unspecified; E11.9 Type 2 diabetes mellitus without complications; Z79.82 Long term (current) use of aspirin; Z79.84 Long term (current) use of oral hypoglycemic drugs; Z86.718 Personal history of other venous thrombosis and embolism; Z90.710 Acquired absence of both cervix and uterus; Z91.040 Latex allergy status; Z79.899 Other long term (current) drug therapy
CPT/HCPCS: 71045; 82947; 82962; 93005; 93970

== ENCOUNTER 2025-07-11 13:33 | Inpatient (IN) | payer OTHER, MEDICAID ==
[~2025-07-11] VITALS: Ht 147.3 cm; Wt 54.0 kg
[2025-07-11] VITALS (7 sets, daily range): BP systolic 110–124; BP diastolic 51–64; PULSE 58–65; RESP 12–17; TEMP 97.4–98.1; O2SAT 99–100
--- NOTE | 2025-07-11 13:52 | ED.PDOC ---
History of present illness HPI Comments HPI: 85 y/o F, with PMHx of DM, HLD, HTN, edema, hypothyroidism, anxiety, and CVA with right-sided deficits is BIBA for CC of hyperglycemia. EMS reports, patient is coming from home where family called d/t elevated BG reading at 499. Per EMS, prior to their arrival patient took [id number] of insulin which brought down her blood glucose to 339. Patient relays that she has additional symptoms including dark stools, fatigue, blurred vision, nausea, and vomiting. At this time patient's Hgb read at 4.9; patient informed and agreed to blood transfusion. Initial Vitals BP: HR: RR: O2: Temp: Past Medical History: DM, HLD, HTN, EDEMA, THYROID DISEASE, DVT, ANXIETY, CVA with right-sided deficits Past Surgical History: HYSTERECTOMY, HERNIA REPAIR Social History: Denies ETOH, smoking, and drug use. Medications: Allergies: NKA Dany: HPI: Poor Historian. 85-year-old female brought in by ambulance from home for elevated blood sugar. Patient felt somewhat dizzy and weak this morning so she checked her sugar and was in 4199. She took 5 units of her insulin and rechecked it later and it improved to-----however her symptoms have not improved much so she called 911. Denies any other acute symptoms. REVIEW OF SYSTEMS: CONSTITUTIONAL: Denies acute: fever, diaphoresis, chills, HEAD: Denies acute: headache, photophobia Eyes: Denies acute: Double vision, vision loss, eye pain, eye discharge. EARS: Denies acute: tinnitus, hearing loss, ear discharge, ear pain, THROAT: Denies acute: sore throat, swelling, difficulty swallowing , pain with swallowing, change in voice. NECK: Denies acute: neck pain, neck swelling, stiff neck. HEART: Denies acute : chest pain, palpitations, LUNGS: Denies acute: SOB, wheezing, cough, hemoptysis ABDOMEN: Denies acute: abdominal pain, Nausea, Vomiting, diarrhea, melena , hematemesis, hematochezia SKIN: Denies acute: rash, redness, lesions, itchiness. EXTREMITIES: Denies acute: calf pain, numbness, tingling, weakness, denies pain in extremity. Denies acute: Low back pain. Neuro: Denies acute: focal neurological deficit, motor or sensory focal neurological deficit, tremors, seizure like activity, confusion, change in mental status, loss of bowel or bladder function, cauda equina like symptoms. : Denies acute: dysuria, hematuria, flank pain, increase in urinary frequency. PSYCH: Denies acute: hallucination, suicidal ideation, homicidal ideation. FEMALE: Denies acute: abnormal vaginal bleeding, foul odor, unusual discharge. PHYSICAL EXAM: General: ----no----acute distress, awake and alert. Head: normocephalic, atraumatic. Neck: supple, trachea is midline, no swelling. Throat: Normal phonation. Eyes:, no erythema, no purulent discharge, no proptosis, no icterus. Heart: regular rate, regular rhythm, no significant murmur appreciated. Lungs: no apparent respiratory distress, Able to speak in full sentences. No wheezing, no rhonchi, no crackles. No stridors Clear to auscultation bilaterally. Abdomen: non tender to palpation, non distended, soft, no guarding, no rebound, + bowel sounds. Neuro: Awake, Alert, oriented to name, self, situation, follows commands GCS=15. Speech is normal. Patient has chronic right-sided deficits from a previous stroke. Skin: no petechia, no purpura, no cyanosis, slightly-pale, not jaundice. Lower extremities: --1/4 b/l - Pitting edema no deformity, no focal swelling, no calf TTP. Makes eye contact. Face: no apparent facial droop. ED COURSE: DISCLAIMER: This medical document was created using an electronic medical record system with voice recognition software and computerized dictation system. Although this document has been carefully reviewed, there might still be some phonetic and typographical errors. Occasional wrong-word or "sound-alike" substitutions may have occurred due to the inherent limitations of voice recognition software. These areas are purely typographical due to imperfections of the software programs and do not reflect any compromise in the patient's medical care. Please read the chart carefully and recognize, using context, where these substitutions have occurred. Chief Complaint: Hyperglycemia Time Seen by MD: 13:45 Primary Care Provider: UNKNOWN History of present illness: Nurses Notes, Medications, Allergies Allergies: Coded Allergies: Latex (Verified Adverse Reaction, Mild, Rash/itchiness, 06/29/24) Pt stated this was catheter related Home Meds Active Scripts Clopidogrel Bisulfate (Plavix) 75 Mg Tab, 1 TAB PO DAILY, #30 TAB 0 Refills Prov:GEETA JOHNSON MD 12/05/24 Atorvastatin Calcium (ATORVASTATIN CALCIUM) 40 Mg Tab, 1 TAB PO QPM, #90 TAB 3 Refills Prov:GEETA JOHNSON MD 12/05/24 Aspirin (Aspirin Low Dose) 81 Mg Tab, 81 MG PO DAILY for 30 Days, #30 TAB Prov:GEETA JOHNSON MD 12/05/24 Lidocaine (LIDODERM 5% TOPICAL PATCH) 1 Patch Ph, 1 PATCH TOP DAILY, #30 PATCH 1 Refill Prov:ALEX WICK MD 03/12/24 Fludrocortisone Acetate (Fludrocortisone Acetate) 0.1 Mg Tab, 0.1 MG PO DAILY for 30 Days, #30 TAB Prov:CARLEY CERDA MD 04/23/23 Reported Medications Solifenacin Succinate (Solifenacin Succinate) 10 Mg Tab, 10 MG PO, TAB 06/29/24 Nifedipine (Nifedipine ER) 30 Mg Tab, 30 MG PO DAILY for HYPERTENSION 08/19/21 Lorazepam (ATIVAN TABLET) 0.5 Mg Tb, 1 TAB PO BIDPRN PRN for ANXIETY 08/17/21 Insulin Regular (Human) (Novolin R) 100 Unit/Ml Inj, 5 UNIT SC BS for DIABETES 04/20/18 Escitalopram Oxalate (ESCITALOPRAM OXALATE) 20 Mg Tab, 20 MG PO QAM for DEPRESSION 04/20/18 Levothyroxine Sodium (Levothyroxine Sodium) 25 Mcg Tab, 1 TAB PO QAM for HYPOTHYROIDISM 04/25/17 Mirtazapine (Mirtazapine Oral Disintegrating Tablet) 15 Mg Tab, 1 TAB PO QPM for DEPRESSION 04/25/17 Metformin Hydrochloride (Metformin Hcl) 850 Mg Tab, 1 TAB PO TID for DIABETES MAY RESUME MEDICINE IN 3 DAYS ON Tuesday08/22/21 09/18/15 Information Source: Patient Mode of Arrival: Wheelchair Timing: Days Duration: Since onset Prehospital treatment: None History of: Diabetes Modifying factors: Nothing Associated signs and symptoms: None Was a procedure done? Was a procedure done?: No Differential Diagnosis (DM) Differential Diagnosis: Cholecystitis, DKA, Hyperglycemia, Other (Includes but not limited to thyroid disease, encephalopathy, electrolyte abnormality, sepsis, infection, intracranial pathology, drug adverse effects, arrhythmia, kidney insufficiency, ACS, CVA, malignancy, anemia) X-Ray, Labs, Meds, VS Vital Signs Date Time Temp Pulse Resp B/P (MAP) Pulse Ox O2 Delivery O2 Flow Rate FiO2 07/11/25 14:40 97 Nasal Cannula* 2 28 07/11/25 14:35 97 17 Room Air 0 07/11/25 14:01 97.7 70 16 121/51 95 97.7 Lab Test 07/11/25 16:25 07/11/25 14:49 07/11/25 14:06 07/11/25 14:03 Range/Units Lactic Acid Level 2.7 *H 3.2 *H 0.4-2.0 mmol/L Troponin I High Sensitivity 12 12 12 </=34 ng/L Iron Level 12 L 50-170 ug/dL Total Iron Binding Capacity 379 250-425 ug/dL Percent Iron Saturation 3.2 L 15-50 % Vitamin D 25-Hydroxy 45.4 30.0-100 ng/mL White Blood Count 4.3 L 4.4-10.8 10^3/uL Red Blood Count 1.95 L 4.0-5.20 10^6/uL Hemoglobin 4.9 *L 12.2-16.2 g/dL Hematocrit 16.0 L 36.0-46.0 % Mean Corpuscular Volume 82.4 80.0-100.0 fL Mean Corpuscular Hemoglobin 25.4 L 28.0-32.0 pg Mean Corpuscular Hemoglobin Concent 30.8 L 32.0-36.0 g/dL Red Cell Distribution Width 16.8 H 11.8-14.3 % Platelet Count 322 140-450 10^3/uL Mean Platelet Volume 8.1 6.9-10.8 fL Neutrophils (%) (Auto) 60.2 37.0-80.0 % Lymphocytes (%) (Auto) 25.8 10.0-50.0 % Monocytes (%) (Auto) 10.6 0.0-12.0 % Eosinophils (%) (Auto) 2.4 0.0-7.0 % Basophils (%) (Auto) 1.0 0.0-2.0 % Neutrophils # (Auto) 2.6 1.6-8.6 10 ^3/uL Lymphocytes # (Auto) 1.1 0.4-5.4 10 ^3/uL Monocytes # (Auto) 0.5 0-1.3 10 ^3/uL Eosinophils # (Auto) 0.1 0-0.8 10 ^3/uL Basophils # (Auto) 0 0-0.2 10 ^3/uL Nucleated Red Blood Cells 0.3 % Platelet Estimate Adequate Hypochromasia (manual) Moderate Anisocytosis (manual) Slight Reticulocyte Count (auto) 7.96 H 0.5-1.5 % Sodium Level 140 136-145 mmol/L Potassium Level 4.4 3.5-5.1 mmol/L Chloride Level 105 98-107 mmol/L Carbon Dioxide Level 24 20-31 mmol/L Anion Gap 11 5-15 Blood Urea Nitrogen 23 9-23 mg/dL Creatinine 0.85 0.550-1.02 mg/dL Glomerular Filtration Rate Calc 68 >90 mL/min BUN/Creatinine Ratio 27.1 H 10.0-20.0 Serum Glucose 237 H 74-106 mg/dL Calcium Level 8.7 8.7-10.4 mg/dL Magnesium Level 2.4 1.6-2.6 mg/dL Total Bilirubin 0.3 0.2-1.0 mg/dL Aspartate Amino Transferase (AST) 19 13-40 U/L Alanine Aminotransferase (ALT) 12 7-40 U/L Alkaline Phosphatase 63 46-116 U/L Total Protein 6.7 5.7-8.2 g/dL Albumin 3.9 3.2-4.8 g/dL Folic Acid 42.89 >5.38 ng/mL Test 07/11/25 13:49 Range/Units POC Glucose 245 H 70-106 mg/dl Current Medications Medications (Trade) Dose Ordered Sig/Shawna Route Start Time Stop Time Status Last Admin Sodium Chloride 1,000 ml @ 1,000 mls/hr Q1H ONCE IV 07/11/25 13:45 07/11/25 14:44 DC 07/11/25 15:19 Sodium Chloride 1,000 ml @ 1,000 mls/hr Q1H ONCE IV 07/11/25 14:45 07/11/25 15:44 DC 07/11/25 15:19 Pantoprazole Sodium (Protonix) 40 mg ONCE ONCE IV 07/11/25 15:15 07/11/25 15:16 DC 07/11/25 15:20 [place] [address] Ph: [phone] DIAGNOSTIC IMAGING Diagnostic Imaging Report : [id number] Signed PATIENT: CYNDEE GARCÍA ACCT: [id number] UNIT: [id number] : 1940 LOC: OVERFLOW ROOM / BED: [facility] / A AGE / SEX: 85 / F ADM STATUS: ADM IN SERVICE 31 ORDERING PHYSICIAN: MARCELA GIBSON PROCEDURE(s): HWOCT - HEAD WITHOUT CONTRAST REASON: blurry vision ORDER NUMBER(s): [id number], ACCESSION NUMBER(s): [id number] CT HEAD WITHOUT CONTRAST INDICATION: blurry vision COMPARISON: MRI BRAIN HEAD WO CONTRAST on DOS: 12/05/24, CT HEAD WITHOUT CONTRAST on DOS: 04/22/23, MRI BRAIN HEAD WO CONTRAST on DOS: 04/20/23, CT HEAD WITHOUT CONTRAST on DOS: 04/20/23 TECHNIQUE: CT of the head without intravenous contrast. RADIATION DOSE: CTDIvol: 54.26 mGy, DLP: 54.26 mGy*cm FINDINGS: There is no evidence of acute intracranial hemorrhage, extra-axial collection, mass effect, midline shift, herniation or hydrocephalus. The ventricles, sulci and cisterns are age appropriate. The cisneros-white differentiation is intact. The visualized paranasal sinuses and mastoid air cells are clear. The surrounding soft tissues and osseous structures are unremarkable. IMPRESSION: 1. No evidence of acute intracranial hemorrhage, mass effect or hydrocephalus. ATED BY: BRENDA DUDLEY MD DICTATED DATE/TIME: 07/11/251713 SIGNED BY: BRENDA DUDLEY MD SIGNED DATE/TIME: 07/11/251713 CC: [address] [address] Ph: [phone] DIAGNOSTIC IMAGING Diagnostic Imaging Report : [id number] Signed PATIENT: CYNDEE GARCÍA ACCT: [id number] UNIT: [id number] : 1940 LOC: OVERFLOW ROOM / BED: [facility]9-ER / A AGE / SEX: 85 / F ADM STATUS: ADM IN SERVICE 1631 ORDERING PHYSICIAN: MARCELA GIBSON PROCEDURE(s): ABPL - CT AB PEL WO CON-NO ORAL OR IV REASON: r/o gib ORDER NUMBER(s): [id number], ACCESSION NUMBER(s): [id number] Indication: r/o gib Technique: CT axial images of the abdomen and pelvis are obtained without contrast. Coronal and sagittal reformats were obtained. Radiation Dose Information: CTDI volume is 6. mGy. Dose-length product is 304 mGy*cm Comparison: None FINDINGS: There is limited interpretation of the abdomen and pelvis without administration of intravenous contrast. Lung bases demonstrate atelectasis. Adrenal glands, spleen and pancreas unremarkable in shape. Liver unremarkable in shape. No CT evidence for cholelithiasis. The bilateral kidneys demonstrate mild hydroureteronephrosis 5.5 cm left renal cyst Stomach is relatively nondistended. Small bowel loops are normal in caliber. Colonic diverticular disease. Moderate 2 large volume stool in the colon no secondary signs for appendicitis. Abdominal aortic atherosclerotic disease and tortuosity. Bladder distended. No free pelvic fluid. No inguinal lymphadenopathy. Thoracolumbar dextrocurvature. Severe lumbar degenerative disc disease. Moderate thoracic degenerative disc disease. 6 mm anterolisthesis L4 upon L5. IMPRESSION: Limited evaluation without contrast. Colonic diverticular disease. Moderate to large volume stool within the colon. Atherosclerotic disease. Other findings as described. ATED BY: AMILCAR DIAMOND MD DICTATED DATE/TIME: 07/11/251718 SIGNED BY: AMILCAR DIAMOND MD SIGNED DATE/TIME: 07/11/251718 CC: Time of 1ST Reevaluation: 14:15 Reevaluation 1ST: Unchanged Patient Education/Counseling: Diagnosis, Treatment Family Education/Counseling: Other Comments MDM: patient presented with the above HPI.--generalized weakness----workup was initiated. patient was found with the above mentioned diagnosis. the following medications were ordered: please refer to order lists of meds and tests obtained by myself Dr. Rocha. Patient ED course and VS have been stabilized. Patient has been reassessed in the ED and remained in a stable condition. Pertinent incidental findings were discussed with the patient and/or family. Patient/family voices understanding and is agreeable with plan. Patient has been observed in the ED adequate length of time to insure improvement/stability. Escalation of care considered: Consideration of escalation to observation or admission Patient was found with a severe anemia. Blood transfusion was initiated after consenting the patient. Patient states she has melena for the last few days. Protonix was given. Patient was ADMITTED to the medicine team for further evaluation and treatment of their presentation. Patient will benefit from a GI consultation during her hospitalization. Antibiotics initiated by the medicine team All the reports of any imaging studies that were ordered by myself were reviewed by myself. SEPSIS Sepsis Screen Physician Orders Wallpaper Inspector And Shipper (07/11/25 ) Orthostatic Vital Signs (07/11/25 ) Urinalysis (07/11/25 13:42) Electrocardigram (07/11/25 13:42) Type And Screen (07/11/25 14:33) Obtain Consent For: (07/11/25 15:14) Vital Signs Date Time Temp Pulse Resp B/P (MAP) Pulse Ox O2 Delivery O2 Flow Rate FiO2 07/11/25 14:40 97 Nasal Cannula* 2 28 07/11/25 14:35 97 17 Room Air 0 07/11/25 14:01 97.7 70 16 121/51 95 97.7 Laboratory Tests Test 07/11/25 14:03 07/11/25 14:06 07/11/25 16:25 Lactic Acid Level 3.2 mmol/L (0.4-2.0) *H 2.7 mmol/L (0.4-2.0) *H White Blood Count 4.3 10^3/uL (4.4-10.8) L Medications Medications Dose Ordered Sig/Shawna Route Start Time Stop Time Status Last Admin Dose Admin Pantoprazole Sodium 40 mg ONCE ONCE IV 07/11/25 15:15 07/11/25 15:16 DC 07/11/25 15:20 Sodium Chloride 1,000 ml @ 1,000 mls/hr Q1H ONCE IV 07/11/25 13:45 07/11/25 14:44 DC 07/11/25 15:19 Sodium Chloride 1,000 ml @ 1,000 mls/hr Q1H ONCE IV 07/11/25 14:45 07/11/25 15:44 DC 07/11/25 15:19 Departure 1 Departure Time of Disposition: 14:33 Impression: Primary Impression: Symptomatic anemia Additional Impressions: Melena Rectal bleeding Disposition: ADMITTED INPATIENT Admit to: Tele Condition: Guarded Discharged With: Self Critical Care Note Critical Care Time?: Yes (45 min-critical care time only) I personally scribed for CAIT ROCHA DO ([email or web address]) on 07/11/25 at 13:52. Electronically submitted by Marleen Figueroa ([email or web address]). I personally scribed for CAIT ROCHA DO ([email or web address]) on 07/11/25 at 14:53. Electronically submitted by Marleen Figueroa ([email or web address]). I personally scribed for CAIT ROCHA DO ([email or web address]) on 07/11/25 at 14:58. Electronically submitted by Marleen Figueroa ([email or web address]). I personally scribed for CAIT ROCHA DO ([email or web address]) on 07/11/25 at 15:02. Electronically submitted by Marleen Figueroa ([email or web address]). CAIT ROCHA DO Jul 11, 2025 13:52
[2025-07-11 14:16] LABS: Hematocrit 16.0 % (36.0-46.0); Mean Corpuscular Hemoglobin 25.4 pg (28.0-32.0); Mean Corpuscular Volume 82.4 fL (80.0-100.0); Nucleated Red Blood Cells % 0.3 %
[2025-07-11 14:24] LABS: Hemoglobin 4.9 g/dL (12.2-16.2)
[2025-07-11 14:29] LABS: Alanine Aminotransferase 12 U/L (7-40); Albumin 3.9 g/dL (3.2-4.8); Alkaline Phosphatase 63 U/L (46-116); Anion Gap 11 (5-15); BUN/Creatinine Ratio 27.1 (10.0-20.0); Blood Urea Nitrogen 23 mg/dL (9-23); Calcium 8.7 mg/dL (8.7-10.4); Carbon Dioxide 24 mmol/L (20-31); Chloride 105 mmol/L (98-107); Magnesium 2.4 mg/dL (1.6-2.6); Potassium 4.4 mmol/L (3.5-5.1); Sodium 140 mmol/L (136-145); Total Protein 6.7 g/dL (5.7-8.2)
[2025-07-11 14:30] LABS: Bilirubin, Total 0.3 mg/dL (0.2-1.0); Glucose 237 mg/dL (74-106)
[2025-07-11 14:34] LABS: Lactic Acid w/Reflex 3.2 mmol/L (0.4-2.0)
[2025-07-11 14:35] LABS: Anisocytosis Slight
[2025-07-11] MEDS: SODIUM CHLORIDE 0.9% 1,000 ML IV ONE ×2 (15:19)
[2025-07-11] MEDS: PANTOPRAZOLE 40 MG/10 ML VIAL INJ IV ONE (15:20)
[2025-07-11] MEDS ORDERED: ACETAMINOPHEN 325 MG TAB PO PRN (16:30)
[2025-07-11] MEDS ORDERED: ONDANSETRON HCL 4 MG/2 ML VIAL IV PRN (16:30)
[2025-07-11] MEDS ORDERED: DEXTROSE (50%) 50ML SYRG IV PRN (16:30)
--- NOTE | 2025-07-11 16:39 | DVHHP2 ---
History of Present Illness Reason for Visit: Elevated glucose with blurry vision, nausea, vomiting, and dark stools History of Present Illness Rosalba Saenz S and 85-year-old female with past medical history of diabetes, hyperlipidemia, hypertension, edema, thyroid disease, DVTs, anxiety, CVA with right-sided hemiparesis, hysterectomy, cataract surgery, hernia repair, and knee replacement who presents to the ED with elevated blood sugar, dark stools, fatigue, blurry vision, nausea, and vomiting x three days. Patient's daughter Anna at the bedside. Daughter reports that patient is compliant with her medications. Per daughter her mom was diagnosed with a stroke in November of 2024 at [facility] and was transferred here to [facility], was prescribed aspirin and Plavix to take. She also reports that her mom's blood sugar has been fluctuating significantly up and down even though she has been taking her insulin. Per EMS reports blood sugar readings was 499. Patient denies any recent trauma or injury, recent sick contacts, recent travels, recent recent ingestion of spoiled food, chest pain, shortness of breath, fever, chills, lightheadedness, weakness, dizziness, or urinary symptoms. Patient also ambulates with a front wheel walker. 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 Psych: Anxiety Endocrine: Diabetes Past Medical History Edema Thyroid disease DVT Past Surgical History: Hysterectomy, Hernia Repair, Other (Cataract surgery and bilateral knee replacement) Family History: None Smoke: No ALCOHOL: none Drugs: None Lives: with Family Domestic Violence: Neg Review of Systems Constitutional: Yes: Other (Hypoglycemia--- brought in by EMS due to hypoglycemia x 1 hour as patient's brother found him "moaning and unresponsive" in which brother states this happens when blood sugar is low) Eyes: Vision change Gastrointestinal: Nausea, Vomiting, Melena Allergies: Coded Allergies: Latex (Verified Adverse Reaction, Mild, Rash/itchiness, 06/29/24) Pt stated this was catheter related Exam Vital Signs Vital Signs Date Time Temp Pulse Resp B/P (MAP) Pulse Ox O2 Delivery O2 Flow Rate FiO2 07/11/25 14:40 97 Nasal Cannula* 2 28 07/11/25 14:35 97 17 07/11/25 14:01 97.7 121/51 97.7 General Appearance: Alert, Cooperative, No acute distress HEENT: Atraumatic, PERRLA, EOMI, Mucous membr. moist/pink Respiratory: Clear to auscultation, Normal air movement Cardiovascular: Regular rate, Normal S1, Normal S2, No murmurs Abdominal: Soft Extremities: No clubbing, No cyanosis, Normal pulses Skin: No significant lesion Neuro: Normal speech, Normal tone, Sensation intact Psych/Mental Status: Mental status NL, Mood NL Labs/Xrays Labs Test 07/11/25 14:49 07/11/25 14:06 07/11/25 14:03 07/11/25 13:49 Range/Units Troponin I High Sensitivity 12 </=34 ng/L White Blood Count 4.3 L 4.4-10.8 10^3/uL Red Blood Count 1.95 L 4.0-5.20 10^6/uL Hemoglobin 4.9 *L 12.2-16.2 g/dL Hematocrit 16.0 L 36.0-46.0 % Mean Corpuscular Volume 82.4 80.0-100.0 fL Mean Corpuscular Hemoglobin 25.4 L 28.0-32.0 pg Mean Corpuscular Hemoglobin Concent 30.8 L 32.0-36.0 g/dL Red Cell Distribution Width 16.8 H 11.8-14.3 % Platelet Count 322 140-450 10^3/uL Mean Platelet Volume 8.1 6.9-10.8 fL Neutrophils (%) (Auto) 60.2 37.0-80.0 % Lymphocytes (%) (Auto) 25.8 10.0-50.0 % Monocytes (%) (Auto) 10.6 0.0-12.0 % Eosinophils (%) (Auto) 2.4 0.0-7.0 % Basophils (%) (Auto) 1.0 0.0-2.0 % Neutrophils # (Auto) 2.6 1.6-8.6 10 ^3/uL Lymphocytes # (Auto) 1.1 0.4-5.4 10 ^3/uL Monocytes # (Auto) 0.5 0-1.3 10 ^3/uL Eosinophils # (Auto) 0.1 0-0.8 10 ^3/uL Basophils # (Auto) 0 0-0.2 10 ^3/uL Nucleated Red Blood Cells 0.3 % Platelet Estimate Adequate Hypochromasia (manual) Moderate Anisocytosis (manual) Slight Sodium Level 140 136-145 mmol/L Potassium Level 4.4 3.5-5.1 mmol/L Chloride Level 105 98-107 mmol/L Carbon Dioxide Level 24 20-31 mmol/L Anion Gap 11 5-15 Blood Urea Nitrogen 23 9-23 mg/dL Creatinine 0.85 0.550-1.02 mg/dL Glomerular Filtration Rate Calc 68 >90 mL/min BUN/Creatinine Ratio 27.1 H 10.0-20.0 Serum Glucose 237 H 74-106 mg/dL Lactic Acid Level 3.2 *H 0.4-2.0 mmol/L Calcium Level 8.7 8.7-10.4 mg/dL Magnesium Level 2.4 1.6-2.6 mg/dL Total Bilirubin 0.3 0.2-1.0 mg/dL Aspartate Amino Transferase (AST) 19 13-40 U/L Alanine Aminotransferase (ALT) 12 7-40 U/L Alkaline Phosphatase 63 46-116 U/L Total Protein 6.7 5.7-8.2 g/dL Albumin 3.9 3.2-4.8 g/dL POC Glucose 245 H 70-106 mg/dl SEPSIS Sepsis Screen Date sepsis recognized/suspect: Jul 11, 2025 Time Sepsis recognized/suspect: 1430 Recent Procedure: No On Antibiotic Therapy: No Respiratory Rate >20: No Heart Rate >90: No Temp<36 C (96.8 F) or >38.3 C: No SBP <90 or MAP <65 mmHG: No New Acute Mental Status Change: No Is the patient on CPAP, BIPAP,: No Physician Orders Nut Steamer (07/11/25 ) Orthostatic Vital Signs (07/11/25 ) Urinalysis (07/11/25 13:42) Electrocardigram (07/11/25 13:42) Troponin-I Hs (07/11/25 16:42) Type And Screen (07/11/25 14:33) Obtain Consent For: (07/11/25 15:14) Packedcell-Noactive Bleeding (07/11/25 15:14) Urinalysis (07/11/25 16:25) Drug Screen (07/11/25 16:25) Hemoglobin A1c (07/11/25 16:25) Glucose Blood (Accu-Chek Comfort Curve T (07/11/25 17:00) Mild Sliding Scale (07/11/25 17:00) Dextrose 50% Syringe (07/11/25 16:30) * Gi Dvh Armored Machine Operator (07/11/25 16:25) Iron Panel (07/11/25 16:25) Reticulocyte Count (07/11/25 16:25) Stool Occult Blood (07/11/25 16:25) Haptoglobin (07/11/25 16:25) Direct Abbi (07/11/25 16:25) Indirect Abbi Test (07/11/25 16:25) Vitamin D, 25-Hydroxy (07/11/25 16:25) Vitamin B1 (Thiamine) (07/11/25 16:25) Folate (Folic Acid) (07/11/25 16:25) Admit (07/11/25 16:25) Allergies (07/11/25 16:25) Code Status (07/11/25 16:25) Hydrocodone-Acet 5/325mg Tab ([place] /32 (07/11/25 16:30) Ondansetron Hcl (Zofran) (07/11/25 16:30) Complete Blood Count (07/12/25 04:00) Cardiac Diet-2gna,Lofat,Lochol (07/11/25 Dinner) Acetaminophen Tablet (Tylenol Tablet) (07/11/25 16:30) Sequential Compression Device (07/11/25 ) Ceftriaxone Ivpb Rocephin (07/11/25 16:30) Vital Signs Date Time Temp Pulse Resp B/P (MAP) Pulse Ox O2 Delivery O2 Flow Rate FiO2 07/11/25 14:40 97 Nasal Cannula* 2 28 07/11/25 14:35 97 17 Room Air 0 07/11/25 14:01 97.7 70 16 121/51 95 97.7 Laboratory Tests Test 07/11/25 14:03 07/11/25 14:06 Lactic Acid Level 3.2 mmol/L (0.4-2.0) *H White Blood Count 4.3 10^3/uL (4.4-10.8) L Medications Medications Dose Ordered Sig/Shawna Route Start Time Stop Time Status Last Admin Dose Admin Pantoprazole Sodium 40 mg ONCE ONCE IV 07/11/25 15:15 07/11/25 15:16 DC 07/11/25 15:20 40 MG Sodium Chloride 1,000 ml @ 1,000 mls/hr Q1H ONCE IV 07/11/25 13:45 07/11/25 14:44 DC 07/11/25 15:19 1,000 MLS/HR Sodium Chloride 1,000 ml @ 1,000 mls/hr Q1H ONCE IV 07/11/25 14:45 07/11/25 15:44 DC 07/11/25 15:19 1,000 MLS/HR Assessment/Plan Assessment/Plan Assessment Severe anemia requiring blood transfusions Uncontrolled diabetes Lactic acidosis rule out sepsis Acute hypoxic respiratory failure on supplemental oxygen Melena rule out GI bleed Intractable nausea and vomiting Blurry vision likely due to elevated blood sugar History of hyperlipidemia History of hypertension History of anemia History of thyroid disease History of DVTs History anxiety History of CVA with right-sided hemiparesis History of hysterectomy History of cataract surgery History of hernia repair History of bilateral knee replacement Plan Admit to [facility] surge Type and screen Transfuse PRBCs for hemoglobin less than 7.0 Supplemental oxygen NS 2 L given in ED RBC morphology Troponin noted negative x2 EKG UA Mag level Lactic noted Orthostatics IV antibiotics-ceftriaxone UDS CT abdomen and pelvis ordered CT head ordered Iron panel Stool OB Reticulocyte count Vitamin-B and D level Abbi direct and indirect Haptoglobin Hemoglobin A1c ISS and Accu-Cheks Diet Home medications reconciled -held aspirin and Plavix due to bleeding DVT prophylaxis-SCDs PUD prophylaxis-PPIs Discussed plan of care with patient, patient's daughter, and nurse GI consult [id number] Preventive counseling healthy eating habits, physical activity, and regular checkups Plan discussed with: Patient, Daughter My Orders Orders - MARCELA GIBSON INSIDE TRUCKER Procedure Category Date Status Time Urinalysis LAB 07/11/25 Transmitted 16:25 Drug Screen LAB 07/11/25 Transmitted 16:25 Hemoglobin A1c LAB 07/11/25 Transmitted 16:25 Glucose Blood PHA 07/11/25 Transmitted (Accu-Chek Comfort 17:00 Mild Sliding Scale PHA 07/11/25 Transmitted 17:00 Dextrose 50% Syringe PHA 07/11/25 Transmitted 16:30 * Gi Dvh Armored Machine Operator CONS 07/11/25 Transmitted 16:25 Iron Panel LAB 07/11/25 Transmitted 16:25 Reticulocyte Count LAB 07/11/25 Transmitted 16:25 Stool Occult Blood LAB 07/11/25 Transmitted 16:25 Haptoglobin LAB 07/11/25 Transmitted 16:25 Direct Abbi BBK 07/11/25 Transmitted 16:25 Indirect Abbi Test BBK 07/11/25 Transmitted 16:25 Vitamin D, 25-Hydroxy LAB 07/11/25 Transmitted 16:25 Vitamin B1 (Thiamine) LAB 07/11/25 Transmitted 16:25 Folate (Folic Acid) LAB 07/11/25 Transmitted 16:25 Admit ADMIT 07/11/25 Transmitted 16:25 Allergies SINTIA 07/11/25 Transmitted 16:25 Code Status CODE 07/11/25 Transmitted 16:25 Hydrocodone-Acet PHA 07/11/25 Transmitted 5/325mg Tab ([place] 16:30 Ondansetron Hcl PHA 07/11/25 Transmitted (Zofran) 16:30 Complete Blood Count LAB 07/12/25 Verified 04:00 Cardiac DIET 07/11/25 Transmitted Diet-2gna,Lofat,Lochol Dinner Acetaminophen Tablet PHA 07/11/25 Transmitted (Tylenol Tablet) 16:30 Sequential SINTIA 07/11/25 Transmitted Compression Device Ceftriaxone Ivpb PHA 07/11/25 Transmitted Rocephin 16:30 Date of Service: Jul 11, 2025 Billing Provider: MARCELA GIBSON Common Visit Codes: [id number] INP/OBS CARE (HIGH) Secondary Visit Codes: [id number] COUNSELING IND MARCELA GIBSON Jul 11, 2025 16:39
[2025-07-11] MEDS: PANTOPRAZOLE 40 MG/10 ML VIAL INJ IV SCH (16:45)
[2025-07-11 16:54] LABS: Iron 12.0 ug/dL (50-170)
[2025-07-11 16:56] LABS: Total Iron Binding Capacity 379.0 ug/dL (250-425)
[2025-07-11] MEDS: ACCU-CHEK COMFORT CURVE STRIP VI SCH (17:00)
[2025-07-11] MEDS: InsuLIN REG 1unit/0.01ml Soln (100units/ml) SC SCH (17:00)
--- NOTE | 2025-07-11 17:16 | DVH ---
CT HEAD WITHOUT CONTRAST INDICATION: blurry vision COMPARISON: MRI BRAIN HEAD WO CONTRAST on DOS: 12/05/24, CT HEAD WITHOUT CONTRAST on DOS: 04/22/23, MRI BRAIN HEAD WO CONTRAST on DOS: 04/20/23, CT HEAD WITHOUT CONTRAST on DOS: 04/20/23 TECHNIQUE: CT of the head without intravenous contrast. RADIATION DOSE: CTDIvol: 54.26 mGy, DLP: 54.26 mGy*cm FINDINGS: There is no evidence of acute intracranial hemorrhage, extra-axial collection, mass effect, midline s hift, herniation or hydrocephalus. The ventricles, sulci and cisterns are age appropriate. The cisneros -white differentiation is intact. The visualized paranasal sinuses and mastoid air cells are clear. The surrounding soft tissues and osseous structures are unremarkable. IMPRESSION: 1. No evidence of acute intracranial hemorrhage, mass effect or hydrocephalus.
--- NOTE | 2025-07-11 17:17 | DVH ---
Indication: r/o gib Technique: CT axial images of the abdomen and pelvis are obtained without contrast. Coronal and sagit hiren reformats were obtained. Radiation Dose Information: CTDI volume is 6. mGy. Dose-length product is 304 mGy*cm Comparison: None FINDINGS: There is limited interpretation of the abdomen and pelvis without administration of intravenous contr ast. Lung bases demonstrate atelectasis. Adrenal glands, spleen and pancreas unremarkable in shape. Liver unremarkable in shape. No CT eviden ce for cholelithiasis. The bilateral kidneys demonstrate mild hydroureteronephrosis 5.5 cm left renal cyst Stomach is relatively nondistended. Small bowel loops are normal in caliber. Colonic diverticular disease. Moderate 2 large volume stool in the colon no secondary signs for appen dicitis. Abdominal aortic atherosclerotic disease and tortuosity. Bladder distended. No free pelvic fluid. N o inguinal lymphadenopathy. Thoracolumbar dextrocurvature. Severe lumbar degenerative disc disease. Moderate thoracic degenerat cristina disc disease. 6 mm anterolisthesis L4 upon L5. IMPRESSION: Limited evaluation without contrast. Colonic diverticular disease. Moderate to large volume stool within the colon. Atherosclerotic disease. Other findings as described.
[2025-07-11] MEDS ORDERED: PATIENTS OWN MEDICATION (Atorvastatin Calcium 1 TAB) PO SCH (18:00)
[2025-07-11 19:35] LABS: Urine Protein, UAD Negative (Negative)
[2025-07-11 19:49] LABS: Amphetamine Screen, Urine Neg (NEGATIVE); Barbiturate Scree,Urine Neg (NEGATIVE); Benzodiazephine Screen, Urine Neg (NEGATIVE); Cannabinoid Screen, Urine Neg (NEGATIVE); Cocaine Screen, Urine Neg (NEGATIVE); Opiate Scree,Urine Neg (NEGATIVE); Phencyclidine Screen, Urine Neg (NEGATIVE)
[2025-07-11] MEDS: ATORVASTATIN 20 MG TAB PO SCH (22:48)
[2025-07-12] VITALS (12 sets, daily range): BP systolic 104–130; BP diastolic 44–80; PULSE 56–74; RESP 14–18; TEMP 97.4–99; O2SAT 96–100
[2025-07-12 04:09] LABS: Hematocrit 23.6 % (36.0-46.0); Hemoglobin 7.9 g/dL (12.2-16.2); Mean Corpuscular Hemoglobin 27.8 pg (28.0-32.0); Mean Corpuscular Volume 83.2 fL (80.0-100.0); Nucleated Red Blood Cells % 0.5 %
[2025-07-12] MEDS: LEVOTHYROXINE SODIUM 25 MCG TAB PO SCH (06:26)
[2025-07-12] MEDS: SODIUM CHLORIDE 0.9% 1,000 ML IV SCH (11:15)
[2025-07-12] MEDS: HYDROcodone-ACET 5/325MG TAB PO PRN (12:57)
--- NOTE | 2025-07-12 13:27 | DVHINCON2 ---
GI Consult Consult Note GI consult note Date of Consultation: 07/12/2025 Chief Complaint: Severe anemia rule out GI bleed Referring Physician: Chino RUANO H&P: 85-year-old Mohawk-speaking female, RN translating at bedside, telephone conversation with daughter and son also, admitted with complains of elevated blood sugar, dark stool, fatigue, blurry vision and nausea and vomiting for the past three days. Denies hematemesis. Patient denies abdominal pain. No nausea or vomiting at this time. Stool occult blood is pending. Patient is being treated with aspirin and Plavix last dosage one day ago. Diagnosed with CVA November 2024. Unsure of any EGD or colonoscopy in past Past Medical History: Cardiovascular: HTN, hyperipidemia RV SERVICE TECHNICIAN: CVA Psych: Anxiety Endocrine: Diabetes Past Medical History Edema Thyroid disease DVT Past Surgical History: Hysterectomy, Hernia Repair, Other (Cataract surgery and bilateral knee replacement) Social History: NO smoking, drinking ETOH and use of illegal drugs. Family History: Noncontributory Review of Systems: Constitutional: no fever, chill, weight loss HEENT: no eye pain, no hearing loss, no oral lesion, no scleral icterus Heart: no chest pain, no chest pressure Lung: no cough, no dyspnea with exertion Abdomen: see HPI Physical exam: General: NAD, AAOX3 Chest: lung irwin clear to auscultation Heart: RRR, no murmur Abdomen: non-distended, no tenderness to palpation, +BS Labs: Labs Test 07/12/25 11:50 07/12/25 03:20 07/11/25 19:10 07/11/25 18:32 Range/Units POC Glucose 120 H 70-106 mg/dl White Blood Count 5.6 # 4.4-10.8 10^3/uL Red Blood Count 2.84 L 4.0-5.20 10^6/uL Hemoglobin 7.9 #L 12.2-16.2 g/dL Hematocrit 23.6 #L 36.0-46.0 % Mean Corpuscular Volume 83.2 80.0-100.0 fL Mean Corpuscular Hemoglobin 27.8 L 28.0-32.0 pg Mean Corpuscular Hemoglobin Concent 33.4 32.0-36.0 g/dL Red Cell Distribution Width 15.6 H 11.8-14.3 % Platelet Count 269 140-450 10^3/uL Mean Platelet Volume 8.3 6.9-10.8 fL Neutrophils (%) (Auto) 75.1 37.0-80.0 % Lymphocytes (%) (Auto) 13.0 10.0-50.0 % Monocytes (%) (Auto) 9.3 0.0-12.0 % Eosinophils (%) (Auto) 1.9 0.0-7.0 % Basophils (%) (Auto) 0.7 0.0-2.0 % Neutrophils # (Auto) 4.2 1.6-8.6 10 ^3/uL Lymphocytes # (Auto) 0.7 0.4-5.4 10 ^3/uL Monocytes # (Auto) 0.5 0-1.3 10 ^3/uL Eosinophils # (Auto) 0.1 0-0.8 10 ^3/uL Basophils # (Auto) 0 0-0.2 10 ^3/uL Nucleated Red Blood Cells 0.5 % Urine Color Colorless Yellow Urine Clarity Clear Clear Urine pH 7.0 5.0-9.0 Urine Specific [place] 1.005 1.001-1.035 Urine Protein Negative Negative Urine Ketones Negative Negative Urine Blood Negative Negative /uL Urine Nitrite Negative Negative Urine Bilirubin Negative Negative Urine Urobilinogen Normal Negative mg/dL Urine Leukocyte Esterase Negative Negative /uL Urine RBC None seen 0 - 4 /hpf Urine Microscopic WBC 1 0-5 /HPF Urine Squamous Epithelial Cells None seen <5 /hpf Urine Bacteria None seen None Seen /hpf Urine Glucose 3+ H Normal mg/dL Urine Opiates Screen Neg NEGATIVE Urine Fentanyl Screen Neg NEGATIVE Urine Barbiturates Screen Neg NEGATIVE Urine Phencyclidine Screen Neg NEGATIVE Urine Amphetamines Screen Neg NEGATIVE Urine Benzodiazepines Screen Neg NEGATIVE Urine Cocaine Screen Neg NEGATIVE Urine Cannabinoids Screen Neg NEGATIVE Haptoglobin 143 41-333 mg/dL Test 07/11/25 16:25 07/11/25 14:49 07/11/25 14:06 07/11/25 14:03 Range/Units Lactic Acid Level 2.7 *H 0.4-2.0 mmol/L Troponin I High Sensitivity 12 </=34 ng/L Iron Level 12 L 50-170 ug/dL Total Iron Binding Capacity 379 250-425 ug/dL Percent Iron Saturation 3.2 L 15-50 % Vitamin D 25-Hydroxy 45.4 30.0-100 ng/mL Platelet Estimate Adequate Hypochromasia (manual) Moderate Anisocytosis (manual) Slight Reticulocyte Count (auto) 7.96 H 0.5-1.5 % Sodium Level 140 136-145 mmol/L Potassium Level 4.4 3.5-5.1 mmol/L Chloride Level 105 98-107 mmol/L Carbon Dioxide Level 24 20-31 mmol/L Anion Gap 11 5-15 Blood Urea Nitrogen 23 9-23 mg/dL Creatinine 0.85 0.550-1.02 mg/dL Glomerular Filtration Rate Calc 68 >90 mL/min BUN/Creatinine Ratio 27.1 H 10.0-20.0 Serum Glucose 237 H 74-106 mg/dL Calcium Level 8.7 8.7-10.4 mg/dL Magnesium Level 2.4 1.6-2.6 mg/dL Total Bilirubin 0.3 0.2-1.0 mg/dL Aspartate Amino Transferase (AST) 19 13-40 U/L Alanine Aminotransferase (ALT) 12 7-40 U/L Alkaline Phosphatase 63 46-116 U/L Total Protein 6.7 5.7-8.2 g/dL Albumin 3.9 3.2-4.8 g/dL Folic Acid 42.89 >5.38 ng/mL Imaging: CT abdomen pelvis IMPRESSION: Limited evaluation without contrast. Colonic diverticular disease. Moderate to large volume stool within the colon. Atherosclerotic disease. Other findings as described. Assessment: Severe anemia Possible GI bleed Lactic acidosis Nausea and vomiting improving now Plan: Discussed with Dr. Lemons Possible EGD discussed extensively with patient, daughter and son by telephone conversations, and at this moment patient and family are refusing EGD Protonix and Zofran Stool for occult blood Monitor labs transfuse if hemoglobin less than seven We will continue to follow patient Repeat GI services if any active bleeding Plan discussed with patient, family and RN Thank you for this consult Date of Service: Jul 12, 2025 Billing Provider: LYSSA GOMEZ Common Visit Codes: CONSULT ONLY Consultation Codes: [id number] CONSULT <60MIN LYSSA GOMEZ Jul 12, 2025 13:26
[2025-07-12] MEDS: DOCUSATE SOD 100 MG CAP PO ONE (14:08)
--- NOTE | 2025-07-12 17:45 | DVHPN2 ---
Reviewed: H&P Changes from previous H/P or p: No Changes General: Per HPI Eyes: Vision change Gastrointestinal: Nausea, Vomiting, Melena Objective Vitals Vital Signs Date Time Temp Pulse Resp B/P (MAP) Pulse Ox O2 Delivery O2 Flow Rate FiO2 07/12/25 17:24 98.2 60 18 104/44 (64) 97 98.2 07/12/25 08:00 Nasal Cannula* 2 28 Intake/Output Intake and Output 07/12/25 07:00 Intake Total 2500 ml Balance 2500 ml Intake Oral 0 ml IV Total 1000 ml Blood Product 600 ml Other 900 ml # Voids 1 Exam General Appearance: Alert, Cooperative, No acute distress HEENT: Atraumatic, PERRLA, EOMI, Mucous membr. moist/pink Respiratory: Clear to auscultation, Normal air movement Cardiovascular: Regular rate, Normal S1, Normal S2, No murmurs Abdominal: Soft Extremities: No clubbing, No cyanosis, Normal pulses Skin: No significant lesion Neuro: Normal speech, Normal tone, Sensation intact Psych/Mental Status: Mental status NL, Mood NL Medications Current Medications Medications Dose Ordered Sig/Shawna Route Start Time Stop Time Status Last Admin Dose Admin Diagnostic Test (Pha) 1 strip ACHS 07/11/25 17:00 07/12/25 17:00 1 STRIP Insulin Human Regular ACHS SC 07/11/25 17:00 07/12/25 06:24 2 UNITS Dextrose 50 ml UD PRN IV 07/11/25 16:30 Acetaminophen/ Hydrocodone Bitart 1 tab Q4HP PRN PO 07/11/25 16:30 07/12/25 12:57 1 TAB Ondansetron HCl 4 mg Q4HP PRN IV 07/11/25 16:30 Acetaminophen 650 mg Q6HP PRN PO 07/11/25 16:30 Ceftriaxone Sodium 50 ml @ 100 mls/hr DAILY@09 IV 07/11/25 16:30 07/12/25 10:22 100 MLS/HR Levothyroxine Sodium 25 mcg QAM PO 07/12/25 07:00 Nifedipine 30 mg DAILY PO 07/12/25 10:00 07/12/25 10:26 30 MG Patient Own Medication 1 tab QPM PO 07/11/25 18:00 UNV Pantoprazole Sodium 40 mg BID IV 07/11/25 16:45 07/12/25 10:22 40 MG Atorvastatin Calcium 40 mg HS PO 07/11/25 22:00 07/11/25 22:48 40 MG Sodium Chloride 1,000 ml @ 60 mls/hr [id number] IV 07/12/25 11:15 07/12/25 11:15 60 MLS/HR Patient Own Medication 1 HS PO 07/12/25 22:00 Patient Own Medication 1 DAILY PO 07/13/25 10:00 Patient Own Medication 1 QAM PO 07/13/25 10:00 Patient Own Medication 0.1 DAILY PO 07/13/25 10:00 Laboratory Results Laboratory Tests 07/11/25 14:03 07/12/25 03:20 Urinalysis Test 07/11/25 19:10 Urine Color Colorless (Yellow) Urine Clarity Clear (Clear) Urine pH 7.0 (5.0-9.0) Urine Specific [place] 1.005 (1.001-1.035) Urine Protein Negative (Negative) Urine Ketones Negative (Negative) Urine Blood Negative /uL (Negative) Urine Nitrite Negative (Negative) Urine Bilirubin Negative (Negative) Urine Urobilinogen Normal mg/dL (Negative) Urine Leukocyte Esterase Negative /uL (Negative) Urine RBC None seen /hpf (0 - 4) Urine Microscopic WBC 1 /HPF (0-5) Urine Squamous Epithelial Cells None seen /hpf (<5) Urine Bacteria None seen /hpf (None Seen) Urine Glucose 3+ mg/dL (Normal) H Labs and/or images reviewed: Labs reviewed by me, Image(s) reviewed by me Assessment/Plan Assessment/Plan Rosalba Saenz S and 85-year-old female with past medical history of diabetes, hyperlipidemia, hypertension, edema, thyroid disease, DVTs, anxiety, CVA with right-sided hemiparesis, hysterectomy, cataract surgery, hernia repair, and knee replacement who presents to the ED with elevated blood sugar, dark stools, fatigue, blurry vision, nausea, and vomiting x three days. Patient's daughter Anna at the bedside. Daughter reports that patient is compliant with her medications. Per daughter her mom was diagnosed with a stroke in November of 2024 at [facility] and was transferred here to [facility], was prescribed aspirin and Plavix to take. She also reports that her mom's blood sugar has been fluctuating significantly up and down even though she has been taking her insulin. Per EMS reports blood sugar readings was 499. 07/12: Patient still remaining constipated pending stool occult blood. Hemoglobin improving. We will continue monitoring. Continuing Protonix. GI consulted with initial concern for upper GI bleed in want to do EGD but patient is multiple comorbid, high-risk for any procedure, GI continuing with conservative medical management. We will continue monitoring. Diagnosis: Severe anemia requiring blood transfusions Uncontrolled diabetes mellitus with hyperglycemia Lactic acidosis Rule out lower GI bleed Rule out melena Sepsis ruled out Acute hypoxic respiratory failure on supplemental oxygen Intractable nausea and vomiting History of hyperlipidemia History of hypertension History of anemia History of thyroid disease History of DVTs History anxiety History of CVA with right-sided hemiparesis History of hysterectomy History of cataract surgery History of hernia repair History of bilateral knee replacement Plan: Type and screen Transfuse hemoglobin less than 7 Supplemental oxygen maintain pulse ox more than 90% GI consulted Stool occult blood pending Continue Protonix Docusate for constipation Med surge Full code Plan discussed with: Patient My Orders Orders - HUBER CASTILLO MD Procedure Category Date Status Time Patients Own PHA 07/12/25 In Process Medication 22:00 Patients Own PHA 07/13/25 In Process Medication 10:00 Patients Own PHA 07/13/25 In Process Medication 10:00 Patients Own PHA 07/13/25 In Process Medication 10:00 Date of Service: Jul 12, 2025 Billing Provider: HUBER CASTILLO MD Common Visit Codes: [id number] INP/OBS CARE(HIGH) HUBER CASTILLO MD Jul 12, 2025 17:45
[2025-07-12] MEDS: ALBUTEROL SULF 2.5 MG/0.5ML(0.5%) NEB SOLN NEB ONE (20:51)
[2025-07-12] MEDS: SODIUM BICARB 8.4% 50Meq/50ml SYR Vial IV ONE (21:07)
[2025-07-12] MEDS: MIRTAZAPINE 15 MG PO SCH (22:09)
[2025-07-13] VITALS (7 sets, daily range): BP systolic 116–128; BP diastolic 47–69; PULSE 58–67; RESP 17–18; TEMP 97.6–98.4; O2SAT 96–100
[2025-07-13 06:52] LABS: Hemoglobin 8.2 g/dL (12.2-16.2)
[2025-07-13 06:55] LABS: Hematocrit 25.1 % (36.0-46.0); Mean Corpuscular Hemoglobin 27.8 pg (28.0-32.0); Mean Corpuscular Volume 84.9 fL (80.0-100.0); Nucleated Red Blood Cells % 0.8 %
[2025-07-13] MEDS: FLUDROCORTISONE 0.1 MG PO SCH (09:09)
[2025-07-13] MEDS: SOLIFENACIN 10 MG PO SCH (09:09)
[2025-07-13] MEDS: ESCITALOPRAM 20MG PO SCH (09:10)
--- NOTE | 2025-07-13 14:10 | DVHPN2 ---
Subjective I am assuming the care of the patient from today onwards who was under the care of the hospitalist team. The patient was seen and evaluated by me with the help of mallet and die cutter. Patient currently denies any vomiting of blood or any black stools. Reviewed: H&P Changes from previous H/P or p: No Changes General: Per HPI Eyes: Vision change Gastrointestinal: Nausea, Vomiting, Melena Objective Vitals Vital Signs Date Time Temp Pulse Resp B/P (MAP) Pulse Ox O2 Delivery O2 Flow Rate FiO2 07/13/25 13:07 98.4 62 18 126/47 (73) 100 98.4 07/13/25 08:03 Nasal Cannula* 2 28 Intake/Output Intake and Output 07/13/25 07:00 Intake Total 1120 ml Balance 1120 ml Intake Oral 710 ml IV Total 410 ml # Voids 6 Exam HEENT pupils are reactive Neck is supple CV is S1-S2 regular rate and rhythm Respiratory diminished BS on bases GI positive bowel sound Extremity no edema 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 Medications Current Medications Medications Dose Ordered Sig/Shawna Route Start Time Stop Time Status Last Admin Dose Admin Diagnostic Test (Pha) 1 strip ACHS 07/11/25 17:00 07/13/25 11:50 1 STRIP Insulin Human Regular ACHS SC 07/11/25 17:00 07/13/25 11:52 2 UNITS Dextrose 50 ml UD PRN IV 07/11/25 16:30 Acetaminophen/ Hydrocodone Bitart 1 tab Q4HP PRN PO 07/11/25 16:30 07/12/25 12:57 1 TAB Ondansetron HCl 4 mg Q4HP PRN IV 07/11/25 16:30 Acetaminophen 650 mg Q6HP PRN PO 07/11/25 16:30 Ceftriaxone Sodium 50 ml @ 100 mls/hr DAILY@09 IV 07/11/25 16:30 07/13/25 09:08 100 MLS/HR Levothyroxine Sodium 25 mcg QAM PO 07/12/25 07:00 07/13/25 06:26 25 MCG Nifedipine 30 mg DAILY PO 07/12/25 10:00 07/13/25 09:08 30 MG Patient Own Medication 1 tab QPM PO 07/11/25 18:00 UNV Pantoprazole Sodium 40 mg BID IV 07/11/25 16:45 07/13/25 09:08 40 MG Atorvastatin Calcium 40 mg HS PO 07/11/25 22:00 07/12/25 22:10 40 MG Patient Own Medication 1 HS PO 07/12/25 22:00 07/12/25 22:09 1 Patient Own Medication 1 DAILY PO 07/13/25 10:00 07/13/25 09:09 1 Patient Own Medication 1 QAM PO 07/13/25 10:00 07/13/25 09:10 1 Patient Own Medication 0.1 DAILY PO 07/13/25 10:00 07/13/25 09:09 0.1 Laboratory Results Laboratory Tests 07/11/25 14:03 07/13/25 06:40 Urinalysis Test 07/11/25 19:10 Urine Color Colorless (Yellow) Urine Clarity Clear (Clear) Urine pH 7.0 (5.0-9.0) Urine Specific [place] 1.005 (1.001-1.035) Urine Protein Negative (Negative) Urine Ketones Negative (Negative) Urine Blood Negative /uL (Negative) Urine Nitrite Negative (Negative) Urine Bilirubin Negative (Negative) Urine Urobilinogen Normal mg/dL (Negative) Urine Leukocyte Esterase Negative /uL (Negative) Urine RBC None seen /hpf (0 - 4) Urine Microscopic WBC 1 /HPF (0-5) Urine Squamous Epithelial Cells None seen /hpf (<5) Urine Bacteria None seen /hpf (None Seen) Urine Glucose 3+ mg/dL (Normal) H Blood Gas Results Test 07/12/25 20:00 FiO2 % 32.0 Assessment/Plan Assessment/Plan 85-year-old female with a known history of diabetes mellitus type 2, hypertension, dyslipidemia, anxiety, history of CVA with right-sided mild residual deficit presented to the hospital with black stools also nausea and vomiting and uncontrolled blood sugar found to have 1. Acute symptomatic anemia status post packed RBC next 2. Melanotic stools rule out upper GI bleed 3. Hyperglycemia in the setting of diabetes mellitus type 2 4. Lactic acidosis next 5. Acute hypoxic respiratory failure currently on supplemental oxygen 5. Hypertension next 6. History of CVA with right-sided deficit 7. Hypertension -monitor H&H, GI consultation appreciated the patient refused EGD -physical therapy evaluation and treatment. Plan discussed with: Patient My Orders Orders - TIERRA ORDOÑEZ MD Procedure Category Date Status Time Refer To Physical SINTIA 07/13/25 In Process Therapy 12:50 Pt Request For Service PT 07/13/25 Logged 13:01 Date of Service: Jul 13, 2025 Billing Provider: TIERRA ORDOÑEZ MD Common Visit Codes: [id number] INP/OBS CARE(MOD) TIERRA ORDOÑEZ MD Jul 13, 2025 14:10
[2025-07-14 01:00] VITALS: BP 138/72; PULSE 63; RESP 18; TEMP 97.4; O2SAT 100
[2025-07-14 05:00] VITALS: BP 145/70; PULSE 68; RESP 18; O2SAT 98
[2025-07-14 09:00] VITALS: BP 123/53; PULSE 60; RESP 18; TEMP 98.7; O2SAT 100
--- NOTE | 2025-07-14 13:00 | DVHPN2 ---
Subjective Patient was seen and evaluated by me in the presence of daughter at bedside. Patient is complaining of constipation bowel regimen has been started. Stool occult blood test is pending. Patient's has a refused EGD. Reviewed: H&P Changes from previous H/P or p: No Changes General: Per HPI Eyes: Vision change Gastrointestinal: Nausea, Vomiting, Melena Objective Vitals Vital Signs Date Time Temp Pulse Resp B/P (MAP) Pulse Ox O2 Delivery O2 Flow Rate FiO2 07/14/25 11:42 135/78 07/14/25 09:00 98.7 60 18 100 98.7 07/13/25 20:00 Nasal Cannula* 2 28 Intake/Output Intake and Output 07/14/25 07:00 Intake Total 915 ml Output Total 200 ml Balance 715 ml Intake Oral 915 ml Output Urine Total 200 ml # Voids 3 Exam HEENT pupils are reactive Neck is supple CV is S1-S2 regular rate and rhythm Respiratory diminished BS on bases GI positive bowel sound Extremity no 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 Medications Current Medications Medications Dose Ordered Sig/Shawna Route Start Time Stop Time Status Last Admin Dose Admin Diagnostic Test (Pha) 1 strip ACHS 07/11/25 17:00 07/14/25 11:44 1 STRIP Insulin Human Regular ACHS SC 07/11/25 17:00 07/14/25 11:43 2 UNITS Dextrose 50 ml UD PRN IV 07/11/25 16:30 Acetaminophen/ Hydrocodone Bitart 1 tab Q4HP PRN PO 07/11/25 16:30 07/12/25 12:57 1 TAB Ondansetron HCl 4 mg Q4HP PRN IV 07/11/25 16:30 Acetaminophen 650 mg Q6HP PRN PO 07/11/25 16:30 Ceftriaxone Sodium 50 ml @ 100 mls/hr DAILY@09 IV 07/11/25 16:30 07/14/25 11:36 100 MLS/HR Levothyroxine Sodium 25 mcg QAM PO 07/12/25 07:00 07/14/25 06:22 25 MCG Nifedipine 30 mg DAILY PO 07/12/25 10:00 07/14/25 11:42 30 MG Patient Own Medication 1 tab QPM PO 07/11/25 18:00 UNV Pantoprazole Sodium 40 mg BID IV 07/11/25 16:45 07/14/25 11:36 40 MG Atorvastatin Calcium 40 mg HS PO 07/11/25 22:00 07/13/25 21:48 40 MG Patient Own Medication 1 HS PO 07/12/25 22:00 07/13/25 21:48 1 Patient Own Medication 1 DAILY PO 07/13/25 10:00 07/14/25 10:00 1 Patient Own Medication 1 QAM PO 07/13/25 10:00 07/14/25 06:22 1 Patient Own Medication 0.1 DAILY PO 07/13/25 10:00 07/14/25 10:00 0.1 Laboratory Results Laboratory Tests 07/11/25 14:03 07/13/25 06:40 Urinalysis Test 07/11/25 19:10 Urine Color Colorless (Yellow) Urine Clarity Clear (Clear) Urine pH 7.0 (5.0-9.0) Urine Specific [place] 1.005 (1.001-1.035) Urine Protein Negative (Negative) Urine Ketones Negative (Negative) Urine Blood Negative /uL (Negative) Urine Nitrite Negative (Negative) Urine Bilirubin Negative (Negative) Urine Urobilinogen Normal mg/dL (Negative) Urine Leukocyte Esterase Negative /uL (Negative) Urine RBC None seen /hpf (0 - 4) Urine Microscopic WBC 1 /HPF (0-5) Urine Squamous Epithelial Cells None seen /hpf (<5) Urine Bacteria None seen /hpf (None Seen) Urine Glucose 3+ mg/dL (Normal) H Assessment/Plan Assessment/Plan 85-year-old female with a known history of diabetes mellitus type 2, hypertension, dyslipidemia, anxiety, history of CVA with right-sided mild residual deficit presented to the hospital with black stools also nausea and vomiting and uncontrolled blood sugar found to have 1. Acute symptomatic anemia status post packed RBC next 2. Melanotic stools rule out upper GI bleed 3. Hyperglycemia in the setting of diabetes mellitus type 2 4. Lactic acidosis 5. Acute hypoxic respiratory failure currently on supplemental oxygen 5. Hypertension 6. History of CVA with right-sided deficit 7 hypothyroidism 8. Constipation -add bowel regimen, check stool occult blood test -monitor H&H, GI consultation appreciated the patient refused EGD -physical therapy evaluation and treatment. Plan discussed with: Patient, Daughter My Orders Orders - TIERRA ORDOÑEZ MD Procedure Category Date Status Time Pt Request For Service PT 07/13/25 Logged 13:01 Complete Blood Count LAB 07/14/25 Logged 11:55 Basic Metabolic Panel LAB 07/14/25 Logged 11:55 Lactic Acid W/ Reflex LAB 07/14/25 Logged Order 11:55 Consistent DIET 07/14/25 Transmitted Carb(Ccho)Diabetes Lunch Docusate Sodium PHA 07/14/25 Verified Capsule (Colace 13:00 Senna Pod Tablet PHA 07/14/25 Verified (Senokot Tablet) 22:00 Lactulose Oral PHA 07/14/25 Verified 13:00 Date of Service: Jul 14, 2025 Billing Provider: TIERRA ORDOÑEZ MD Common Visit Codes: [id number] INP/OBS CARE(MOD) TIERRA ORDOÑEZ MD Jul 14, 2025 13:00
[2025-07-14 13:02] VITALS: BP 129/62; PULSE 59; RESP 18; TEMP 98.5; O2SAT 100
[2025-07-14 13:34] LABS: Hemoglobin 8.2 g/dL (12.2-16.2)
[2025-07-14 13:37] LABS: Hematocrit 25.3 % (36.0-46.0); Mean Corpuscular Hemoglobin 27.4 pg (28.0-32.0); Mean Corpuscular Volume 84.2 fL (80.0-100.0); Nucleated Red Blood Cells % 0.2 %
[2025-07-14 13:44] LABS: Potassium 3.8 mmol/L (3.5-5.1); Sodium 145 mmol/L (136-145)
[2025-07-14 13:46] LABS: Anion Gap 11 (5-15); Carbon Dioxide 25 mmol/L (20-31); Chloride 109 mmol/L (98-107)
[2025-07-14 13:48] LABS: Calcium 8.4 mg/dL (8.7-10.4)
[2025-07-14 13:51] LABS: BUN/Creatinine Ratio 12.1 (10.0-20.0)
[2025-07-14 13:52] LABS: Blood Urea Nitrogen 8 mg/dL (9-23); Glucose 117 mg/dL (74-106)
[2025-07-14] MEDS: LACTULOSE 20Gm/30ML SOLN PO SCH (15:09)
[2025-07-14] MEDS: DOCUSATE SOD 100 MG CAP PO SCH (15:09)
--- NOTE | 2025-07-14 19:45 | DVHPN2 ---
Progress Note - Dictate Date Seen: Jul 14, 2025 Medical Necessity Reason Pt with a Central, PICC or Fol: No Subjective Patient denies any vomiting or melena or active GI bleed Patient is constipated and was started on a bowel regimen today H/H stable at 7.9 vital signs Vital Sign Date Time Temp Pulse Resp B/P (MAP) Pulse Ox O2 Delivery O2 Flow Rate FiO2 07/14/25 13:02 98.5 59 18 129/62 (84) 100 98.5 07/14/25 08:00 Nasal Cannula* 2 28 Total Intake and Output 07/13/25 07/13/25 07/14/25 15:00 23:00 07:00 Intake Total 315 ml 600 ml Output Total 200 ml Balance 315 ml 400 ml medications Current Medications Medications Dose Ordered Sig/Shawna Route Start Time Stop Time Status Last Admin Dose Admin Diagnostic Test (Pha) 1 strip ACHS 07/11/25 17:00 07/14/25 17:00 1 STRIP Insulin Human Regular ACHS SC 07/11/25 17:00 07/14/25 19:15 3 UNITS Dextrose 50 ml UD PRN IV 07/11/25 16:30 Acetaminophen/ Hydrocodone Bitart 1 tab Q4HP PRN PO 07/11/25 16:30 07/12/25 12:57 1 TAB Ondansetron HCl 4 mg Q4HP PRN IV 07/11/25 16:30 Acetaminophen 650 mg Q6HP PRN PO 07/11/25 16:30 Ceftriaxone Sodium 50 ml @ 100 mls/hr DAILY@09 IV 07/11/25 16:30 07/14/25 11:36 100 MLS/HR Levothyroxine Sodium 25 mcg QAM PO 07/12/25 07:00 07/14/25 06:22 25 MCG Nifedipine 30 mg DAILY PO 07/12/25 10:00 07/14/25 11:42 30 MG Patient Own Medication 1 tab QPM PO 07/11/25 18:00 UNV Pantoprazole Sodium 40 mg BID IV 07/11/25 16:45 07/14/25 11:36 40 MG Atorvastatin Calcium 40 mg HS PO 07/11/25 22:00 07/13/25 21:48 40 MG Patient Own Medication 1 HS PO 07/12/25 22:00 07/13/25 21:48 1 Patient Own Medication 1 DAILY PO 07/13/25 10:00 07/14/25 10:00 1 Patient Own Medication 1 QAM PO 07/13/25 10:00 07/14/25 06:22 1 Patient Own Medication 0.1 DAILY PO 07/13/25 10:00 07/14/25 10:00 0.1 Docusate Sodium 100 mg BID PO 07/14/25 13:00 07/14/25 15:09 100 MG Sennosides 17.2 mg HS PO 07/14/25 22:00 Lactulose 30 ml BID PO 07/14/25 13:00 07/14/25 15:09 30 ML objective General: NAD, AAOX3 Chest: lung irwin clear to auscultation Heart: RRR, no murmur Abdomen: non-distended, no tenderness to palpation, +BS laboratory and microbiology Laboratory Tests 07/14/25 13:00 Test 07/14/25 13:00 Range/Units Serum Glucose 117 H 74-106 mg/dL Problems(with codes): (1) Symptomatic anemia (2) Rectal bleeding (3) Melena Prognosis Plan Patient and family had refused endoscopy Continue conservative management with Protonix 40 mg p.o. twice a day Consider starting her on IV iron Avoid aspirin and NSAIDs MiraLax and stool softeners for constipation Outpatient follow up with GI Services electively for any ongoing symptoms Once again thank you for allowing me to participate in the care of this patient Dietary Evaluation Review Recommendations by RD: Dietary education by RD, Protein Supplementation Comments: 1) Initiate Ensure Clear qd 2) [facility] diet when medically feasible 3) Collect HbA1c 4) Encourage patient to limit intake of added sugar including sugar-sweetened beverages, desserts, candy, etc. Aim for a consistent intake of complex carbohydrates throughout the day, paired with protein to help promote glycemic control 5) Refer to outpatient RD/CD[facility] for diabetes education 6) Follow-up with gastroenterology, cardiology, and pulmonology 7) Continue to monitor I&O, labs, and skin integrity Expected Outcomes/Goals: 1) appetite and labs to improve 2) diet to advance 3) f/u in 3-5 days Plan discussed with: Other (Bethany Zepeda) JOANN SCOTT MD Jul 14, 2025 19:45
[2025-07-14 21:00] VITALS: BP 112/51; PULSE 67; RESP 17; TEMP 98.1; O2SAT 98
[2025-07-14] MEDS: SENNA 8.6 MG TAB PO SCH (21:37)
[2025-07-15] VITALS (8 sets, daily range): BP systolic 102–123; BP diastolic 51–68; PULSE 59–67; RESP 16–17; TEMP 36.6; O2SAT 97–100
[2025-07-15] MEDS ORDERED: POLY335015 PO (15:47)
[2025-07-15] MEDS ORDERED: PANT40TA2 PO (15:47)
--- NOTE | 2025-07-15 15:51 | DVHDS2 ---
Discharge Summary Date of Admission Jul 11, 2025 at 16:25 Date of Discharge: Jul 15, 2025 Labs/Diagnostic Data: Laboratory Results Test 07/15/25 11:12 07/14/25 13:00 07/12/25 20:00 07/11/25 19:10 POC Glucose 192 mg/dl (70-106) White Blood Count 4.3 10^3/uL (4.4-10.8) Red Blood Count 3.00 10^6/uL (4.0-5.20) Hemoglobin 8.2 g/dL (12.2-16.2) Hematocrit 25.3 % (36.0-46.0) Mean Corpuscular Volume 84.2 fL (80.0-100.0) Mean Corpuscular Hemoglobin 27.4 pg (28.0-32.0) Mean Corpuscular Hemoglobin Concent 32.5 g/dL (32.0-36.0) Red Cell Distribution Width 16.3 % (11.8-14.3) Platelet Count 298 10^3/uL (140-450) Mean Platelet Volume 8.2 fL (6.9-10.8) Neutrophils (%) (Auto) 62.7 % (37.0-80.0) Lymphocytes (%) (Auto) 23.2 % (10.0-50.0) Monocytes (%) (Auto) 10.3 % (0.0-12.0) Eosinophils (%) (Auto) 3.0 % (0.0-7.0) Basophils (%) (Auto) 0.8 % (0.0-2.0) Neutrophils # (Auto) 2.7 10 ^3/uL (1.6-8.6) Lymphocytes # (Auto) 1.0 10 ^3/uL (0.4-5.4) Monocytes # (Auto) 0.4 10 ^3/uL (0-1.3) Eosinophils # (Auto) 0.1 10 ^3/uL (0-0.8) Basophils # (Auto) 0 10 ^3/uL (0-0.2) Nucleated Red Blood Cells 0.2 % Sodium Level 145 mmol/L (136-145) Potassium Level 3.8 mmol/L (3.5-5.1) Chloride Level 109 mmol/L (98-107) Carbon Dioxide Level 25 mmol/L (20-31) Anion Gap 11 (5-15) Blood Urea Nitrogen 8 mg/dL (9-23) Creatinine 0.66 mg/dL (0.550-1.02) Glomerular Filtration Rate Calc 86 mL/min (>90) BUN/Creatinine Ratio 12.1 (10.0-20.0) Serum Glucose 117 mg/dL (74-106) Lactic Acid Level 0.9 mmol/L (0.4-2.0) Calcium Level 8.4 mg/dL (8.7-10.4) Blood Gas Specimen Type Venous Blood Gas Sample Site Vbg - n/a Blood Gas Patient Temperature 37.0 Arterial Blood Date Drawn Doug Test N/a Venous Blood pH 7.567 (7.320-7.430) Venous Blood pCO2 at Patient Temp 20.6 mmHg (38.0-54.0) Venous Blood pO2 at Patient Temp 40.1 mmHg (23.0-48.0) Venous Blood HCO3 18.3 mmol/L (22.0-29.0) Venous Blood Base Excess -1.3 mmol/L (-2.0-3.0) Blood Gas Liter Flow 3.00 Blood Gas Modality Nasal cannula FiO2 % 32.0 Blood Gas Critical Value Read Back yes Blood Gas Notified Whom Yulissa herrera np Blood Gas Notified Time Blood Gas Notified By Urine Color Colorless (Yellow) Urine Clarity Clear (Clear) Urine pH 7.0 (5.0-9.0) Urine Specific [place] 1.005 (1.001-1.035) Urine Protein Negative (Negative) Urine Ketones Negative (Negative) Urine Blood Negative /uL (Negative) Urine Nitrite Negative (Negative) Urine Bilirubin Negative (Negative) Urine Urobilinogen Normal mg/dL (Negative) Urine Leukocyte Esterase Negative /uL (Negative) Urine RBC None seen /hpf (0 - 4) Urine Microscopic WBC 1 /HPF (0-5) Urine Squamous Epithelial Cells None seen /hpf (<5) Urine Bacteria None seen /hpf (None Seen) Urine Glucose 3+ mg/dL (Normal) Urine Opiates Screen Neg (NEGATIVE) Urine Fentanyl Screen Neg (NEGATIVE) Urine Barbiturates Screen Neg (NEGATIVE) Urine Phencyclidine Screen Neg (NEGATIVE) Urine Amphetamines Screen Neg (NEGATIVE) Urine Benzodiazepines Screen Neg (NEGATIVE) Urine Cocaine Screen Neg (NEGATIVE) Urine Cannabinoids Screen Neg (NEGATIVE) Test 07/11/25 18:32 07/11/25 16:25 07/11/25 14:49 07/11/25 14:06 Haptoglobin 143 mg/dL (41-333) Troponin I High Sensitivity 12 ng/L (</=34) Iron Level 12 ug/dL (50-170) Total Iron Binding Capacity 379 ug/dL (250-425) Percent Iron Saturation 3.2 % (15-50) Vitamin D 25-Hydroxy 45.4 ng/mL (30.0-100) Platelet Estimate Adequate Hypochromasia (manual) Moderate Anisocytosis (manual) Slight Reticulocyte Count (auto) 7.96 % (0.5-1.5) Test 07/11/25 14:03 Magnesium Level 2.4 mg/dL (1.6-2.6) Total Bilirubin 0.3 mg/dL (0.2-1.0) Aspartate Amino Transferase (AST) 19 U/L (13-40) Alanine Aminotransferase (ALT) 12 U/L (7-40) Alkaline Phosphatase 63 U/L (46-116) Total Protein 6.7 g/dL (5.7-8.2) Albumin 3.9 g/dL (3.2-4.8) Folic Acid 42.89 ng/mL (>5.38) Other Laboratory Tests 07/14/25 13:00 Brief Hx & Hospital Course: 85-year-old female with a known history of diabetes mellitus type 2, hypertension, dyslipidemia, anxiety, history of CVA with right-sided mild residual deficit presented to the hospital with black stools also nausea and vomiting and uncontrolled blood sugar found to have acute symptomatic anemia requiring 2 units of packed RBC. Patient's has a melanotic stools but denies to get any endoscopy or colonoscopy in house. Patient's hemoglobin was remained stable. Patient is being discharged under stable condition on Protonix with a close follow up as an outpatient with the PCP and GI and return to ER if this is a black stools , again. Condition at Discharge: Stable Final Diagnosis/Problems List 85-year-old female with a known history of diabetes mellitus type 2, hypertension, dyslipidemia, anxiety, history of CVA with right-sided mild residual deficit presented to the hospital with black stools also nausea and vomiting and uncontrolled blood sugar found to have 1. Acute symptomatic anemia status post packed RBC 2. Melanotic stools rule out upper GI bleed 3. Hyperglycemia in the setting of diabetes mellitus type 2 4. Lactic acidosis 5. Acute hypoxic respiratory failure currently on supplemental oxygen 6. History of CVA with right-sided deficit 7 hypothyroidism 8. Constipation Discharge Disposition: Home with [facility] Services [facility] Discharge Will this Physician continue t: No Discharge Instruct/Medications Diet: Cardiac 2g Na,low cholest Activity: No Restrictions, As Tolerated Follow Up/Referral: Follow up with the PCP in one week follow up with the GI doctor Moon Lemons in one week. Medications: As prescribed and reconciled. New Medications: Pantoprazole Sodium Sesquihydr (Protonix) 40 Mg Tab 40 MG PO BID, #60 TAB Polyethylene Glycol 3350 (Miralax) 17 Gm Pow 17 GM PO DAILY PRN, #14 POW Continued Medications: Aspirin (Aspirin Low Dose) 81 Mg Tab 81 MG PO DAILY for 30 Days, #30 TAB Atorvastatin Calcium (Atorvastatin Calcium) 40 Mg Tab 1 TAB PO QPM, #90 TAB 3 Refills Clopidogrel Bisulfate (Plavix) 75 Mg Tab 1 TAB PO DAILY, #30 TAB 0 Refills Escitalopram Oxalate (Escitalopram Oxalate) 20 Mg Tab 20 MG PO QAM for DEPRESSION Fludrocortisone Acetate (Fludrocortisone Acetate) 0.1 Mg Tab 0.1 MG PO DAILY for 30 Days, #30 TAB Insulin Regular (Human) (Novolin R) 100 Unit/Ml Inj 5 UNIT SC BS for DIABETES Levothyroxine Sodium (Levothyroxine Sodium) 25 Mcg Tab 1 TAB PO QAM for HYPOTHYROIDISM Lidocaine (Lidoderm 5% Topical Patch) 1 Patch Ph 1 PATCH TOP DAILY, #30 PATCH 1 Refill Lorazepam (Ativan Tablet) 0.5 Mg Tb 1 TAB PO BIDPRN PRN for ANXIETY Metformin Hydrochloride (Metformin Hcl) 850 Mg Tab 1 TAB PO TID for DIABETES MAY RESUME MEDICINE IN 3 DAYS ON Tuesday08/22/21 Mirtazapine (Mirtazapine Oral Disintegrating Tablet) 15 Mg Tab 1 TAB PO QPM for DEPRESSION Nifedipine (Nifedipine ER) 30 Mg Tab 30 MG PO DAILY for HYPERTENSION Solifenacin Succinate (Solifenacin Succinate) 10 Mg Tab 10 MG PO, TAB Scheduled Aspirin (Aspirin Low Dose), 81 MG PO DAILY Atorvastatin Calcium (Atorvastatin Calcium), 1 TAB PO QPM Clopidogrel Bisulfate (Plavix), 1 TAB PO DAILY Escitalopram Oxalate (Escitalopram Oxalate), 20 MG PO QAM, (Reported) Fludrocortisone Acetate (Fludrocortisone Acetate), 0.1 MG PO DAILY Insulin Regular (Human) (Novolin R), 5 UNIT SC BS, (Reported) Levothyroxine Sodium (Levothyroxine Sodium), 1 TAB PO QAM, (Reported) Lidocaine (Lidoderm 5% Topical Patch), 1 PATCH TOP DAILY Metformin Hydrochloride (Metformin Hcl), 1 TAB PO TID, (Reported) Mirtazapine (Mirtazapine Oral Disintegrating Tablet), 1 TAB PO QPM, (Reported) Nifedipine (Nifedipine ER), 30 MG PO DAILY, (Reported) Pantoprazole Sodium Sesquihydr (Protonix), 40 MG PO BID Scheduled PRN Lorazepam (Ativan Tablet), 1 TAB PO BIDPRN PRN for ANXIETY, (Reported) Polyethylene Glycol 3350 (Miralax), 17 GM PO DAILY PRN Miscellaneous Medications Solifenacin Succinate (Solifenacin Succinate), 10 MG PO, (Reported) Discharge Statement: "Patient was advised to return to the ER or call 911 if any headaches, dizziness, shortness of breath, chest pain, abdominal pain, bleeding, fevers, or worsening of medical condition. Patient was counseled about treatment plan, medications, possible side effects, patientverbalized understanding. All questions were answered to the best of my ability. This discharge took greater then 30 minutes in planning, reviewing documentation, counseling the patient, and discussing with other team members." ASSESSMENT ASSESSMENT Assessment 85-year-old female with a known history of diabetes mellitus type 2, hypertension, dyslipidemia, anxiety, history of CVA with right-sided mild residual deficit presented to the hospital with black stools also nausea and vomiting and uncontrolled blood sugar found to have 1. Acute symptomatic anemia status post packed RBC 2. Melanotic stools rule out upper GI bleed 3. Hyperglycemia in the setting of diabetes mellitus type 2 4. Lactic acidosis 5. Acute hypoxic respiratory failure currently on supplemental oxygen 6. History of CVA with right-sided deficit 7 hypothyroidism 8. Constipation Date of Service: Jul 15, 2025 Billing Provider: TIERRA ORDOÑEZ MD Common Visit Codes: [id number] DISCH DAY >30min TIERRA ORDOÑEZ MD Jul 15, 2025 15:51
[2025-07-16 01:00] VITALS: BP 124/59; PULSE 77; RESP 17; TEMP 98.3; O2SAT 94
[2025-07-16 05:00] VITALS: BP 127/60; PULSE 60; RESP 17; TEMP 98.5; O2SAT 94
[2025-07-16 09:00] VITALS: BP 129/80; PULSE 58; RESP 16; TEMP 97.2; O2SAT 98
--- NOTE | 2025-07-16 16:00 | DVHPN2 ---
Progress Note - Dictate Date Seen: Jul 16, 2025 Medical Necessity Reason Pt with a Central, PICC or Fol: No Subjective Patient denies any vomiting or melena or active GI bleed Patient is constipated and was started on a bowel regimen today H/H stable at 8.2 One bowel movement recorded vital signs Vital Sign Date Time Temp Pulse Resp B/P (MAP) Pulse Ox O2 Delivery O2 Flow Rate FiO2 07/16/25 11:16 124/72 07/16/25 09:00 97.2 58 16 98 97.2 07/16/25 08:00 Nasal Cannula* 2 28 Total Intake and Output 07/15/25 07/15/25 07/16/25 15:00 23:00 07:00 Intake Total 344 ml 614 ml 320 ml Balance 344 ml 614 ml 320 ml medications Current Medications Medications Dose Ordered Sig/Shawna Route Start Time Stop Time Status Last Admin Dose Admin Diagnostic Test (Pha) 1 strip ACHS 07/11/25 17:00 07/16/25 11:30 1 STRIP Insulin Human Regular ACHS SC 07/11/25 17:00 07/16/25 12:43 3 UNITS Dextrose 50 ml UD PRN IV 07/11/25 16:30 Acetaminophen/ Hydrocodone Bitart 1 tab Q4HP PRN PO 07/11/25 16:30 07/12/25 12:57 1 TAB Ondansetron HCl 4 mg Q4HP PRN IV 07/11/25 16:30 Acetaminophen 650 mg Q6HP PRN PO 07/11/25 16:30 Ceftriaxone Sodium 50 ml @ 100 mls/hr DAILY@09 IV 07/11/25 16:30 07/16/25 11:14 100 MLS/HR Levothyroxine Sodium 25 mcg QAM PO 07/12/25 07:00 07/16/25 06:06 25 MCG Nifedipine 30 mg DAILY PO 07/12/25 10:00 07/16/25 11:16 30 MG Patient Own Medication 1 tab QPM PO 07/11/25 18:00 UNV Pantoprazole Sodium 40 mg BID IV 07/11/25 16:45 07/16/25 11:14 40 MG Atorvastatin Calcium 40 mg HS PO 07/11/25 22:00 07/15/25 21:49 40 MG Patient Own Medication 1 HS PO 07/12/25 22:00 07/15/25 21:49 1 Patient Own Medication 1 DAILY PO 07/13/25 10:00 07/16/25 11:16 1 Patient Own Medication 1 QAM PO 07/13/25 10:00 07/16/25 06:06 1 Patient Own Medication 0.1 DAILY PO 07/13/25 10:00 07/16/25 11:17 0.1 Docusate Sodium 100 mg BID PO 07/14/25 13:00 07/16/25 11:16 100 MG Sennosides 17.2 mg HS PO 07/14/25 22:00 07/14/25 21:37 17.2 MG Lactulose 30 ml BID PO 07/14/25 13:00 07/15/25 11:42 30 ML objective General: NAD, AAOX3 Chest: lung irwin clear to auscultation Heart: RRR, no murmur Abdomen: non-distended, no tenderness to palpation, +BS laboratory and microbiology Laboratory Tests 07/14/25 13:00 Test 07/14/25 13:00 Range/Units Serum Glucose 117 H 74-106 mg/dL Problems(with codes): (1) Symptomatic anemia (2) Rectal bleeding (3) Melena (4) Anxiety Prognosis Plan Continue supportive care Protonix 40 mg p.o. daily Soft mechanical diet Patient does not want endoscopic procedures and prefers conservative management Discharge planning is in progress with [facility] Dietary Evaluation Review Recommendations by RD: Dietary education by RD, Protein Supplementation Comments: 1) Initiate Ensure Clear qd 2) Advance to 60g CCHO cardiac diet when medically feasible 3) Collect HbA1c 4) Encourage patient to limit intake of added sugar including sugar-sweetened beverages, desserts, candy, etc. Aim for a consistent intake of complex carbohydrates throughout the day, paired with protein to help promote glycemic control 5) Refer to outpatient RD/CDCES for diabetes education 6) Follow-up with gastroenterology, cardiology, and pulmonology 7) Continue to monitor I&O, labs, and skin integrity Expected Outcomes/Goals: 1) appetite and labs to improve 2) diet to advance 3) f/u in 3-5 days Plan discussed with: Patient JOANN SCOTT MD Jul 16, 2025 16:00
[2025-07-19 06:07] LABS: Vitamin B1, Whole Blood 90.1 nmol/L (66.5-200.0)
== END 2025-07-16 17:05 | disposition home health service (06) | DRG 377 ==
LOC: EDBD 13:33 → EDUNIT# 13:33 → ER 13:33 → OVERFLOW 16:25 → CENTRAL 17:45
PROVIDERS: ADMIT Internal Medicine; ATTEND Internal Medicine
PROC: 30233N1 Transfusion of Nonautologous Red Blood Cells into Peripheral Vein, Percutaneous Approach (ICD-10-PCS; principal; 2025-07-11)
DX: K92.2 Gastrointestinal hemorrhage, unspecified (principal); J96.01 Acute respiratory failure with hypoxia; E87.20 Acidosis, unspecified; I69.351 Hemiplegia and hemiparesis following cerebral infarction affecting right dominant side; D64.9 Anemia, unspecified; E11.65 Type 2 diabetes mellitus with hyperglycemia; K92.1 Melena; E55.9 Vitamin D deficiency, unspecified; F41.9 Anxiety disorder, unspecified; E78.5 Hyperlipidemia, unspecified; I10 Essential (primary) hypertension; K59.00 Constipation, unspecified; E03.9 Hypothyroidism, unspecified; Z96.653 Presence of artificial knee joint, bilateral; Z90.710 Acquired absence of both cervix and uterus; Z86.718 Personal history of other venous thrombosis and embolism; Z91.040 Latex allergy status
CPT/HCPCS: 36415; 36430; 36600; 70450; 74176; 80048; 80053; 80307; 81001; 82306; 82746; 82805; 82962; 83010; 83540; 83550; 83605; 83735; 84425; 84484; 85025; 85045; 86850; 86880; 86900; 86901; 86920; 94640; 96360; 97116; 97163; 97530; 99291; G0378; J1815; J2470

== ENCOUNTER → 2025-07-25 | Outpatient (CLI) | payer OTHER, MEDICAID ==
[~2025-07-25] MED LIST changes: +PANT40TA2 PO; +POLY335015 PO
[2025-07-25 09:41] LABS: Hematocrit 25.7 % (36.0-46.0); Hemoglobin 8.2 g/dL (12.2-16.2); Mean Corpuscular Hemoglobin 25.7 pg (28.0-32.0); Mean Corpuscular Volume 80.5 fL (80.0-100.0); Nucleated Red Blood Cells % 0.0 %
[2025-07-25 10:19] LABS: Iron 21.0 ug/dL (50-170)
[2025-07-25 10:21] LABS: Total Iron Binding Capacity 362.0 ug/dL (250-425)
== END | disposition home or self-care (01) ==
LOC: LAB 09:21
PROVIDERS: ATTEND Nurse Practitioner Family
DX: D64.9 Anemia, unspecified (principal)
CPT/HCPCS: 36415; 83540; 83550; 85025

== ENCOUNTER → 2025-07-29 | Outpatient (CLI) | payer OTHER, MEDICAID ==
[~2025-07-29] MED LIST changes: +ADENOSINE 90 MG/30 ML INJ IV ONE
--- NOTE | 2025-07-30 14:49 | DVHSR ---
APPROVED REPORT EXAM: Two-dimensional and M-mode echocardiogram with Doppler and color Doppler. DIMENSIONS LVDd4.7 (3.8-5.7cm)LA (2D)4.8 (1.9-4.0cm)Aortic Root3.1 (2.0-3.7cm) LVDs2.8 (2.5-4.0cm)LA (MM) (1.9-4.0cm)Aortic Cusp Exc1.3 (1.5-2.0cm) EF (%) 71.0 (55-70%)Rt. Atrium4.3 (1.9-4.0cm)Asc. Aorta cm Mitral Valve MitralMitral Stenosis E wave1.07m/sMV Mean GR.mmHg A wave1.01m/sMV Peak GR.100mmHg E/A ratio1.12D MVAcm2 DECEL [id number] 1/2 [id number] IVRTmsDop MVA3.95cm2 Aortic Valve Aortic ValveAortic Stenosis V11.24m/Giovanni Mean GR.4mmHg V21.42m/Giovanni Peak GR.8mmHg LVOT Diameter1.9 (1.8-2.4cm)Doppler AVA2.47cm2 Pulmonic Valve V20.74m/s Tricuspid Valve TR Velocity2.64m/s [id number] LEFT VENTRICLE The Left Ventricle is mildly dilated. The left ventricle is normal in structure and function. The Ejection Fraction is within normal limits. The Ejection Fraction is 65-70%. RIGHT VENTRICLE The right ventricle is normal size. ATRIA The left atrium is mildly dilated. The right atrium is mildly dilated. The interatrial septum is intact with no evidence for an atrial septal defect. MITRAL VALVE The mitral valve is normal in structure and function. Mitral regurgitation is moderate. PULMONIC VALVE The pulmonic valve is not well visualized. TRICUSPID VALVE There is mild to moderate tricuspid regurgitation. AORTIC VALVE The aortic valve opens well. No aortic regurgitation is present. GREAT VESSELS The aortic root is normal size. PERICARDIAL EFFUSION There is no pericardial effusion. Conclusion LAE ROCAEL MILD TR MOD MR EF >55%
== END | disposition home or self-care (01) ==
LOC: Rad HDHVI 15:01
PROVIDERS: ATTEND Internal Medicine Cardiovascular Disease
DX: I34.0 Nonrheumatic mitral (valve) insufficiency (principal); R53.1 Weakness
CPT/HCPCS: 93306

== ENCOUNTER 2025-07-31 12:55 | Outpatient (CLI) | payer OTHER, MEDICAID ==
[~2025-07-31] VITALS: Ht 152.4 cm; Wt 56.2 kg
[~2025-07-31 12:55] MED LIST changes: -ADENOSINE 90 MG/30 ML INJ IV ONE
[2025-07-31] MEDS ORDERED: ADENOSINE 47 MG in GIVE UN-DILUTED 0 ML IV ONE (13:45)
[2025-07-31] MEDS ORDERED: ADENOSINE 90 MG/30 ML INJ IV ONE (13:47)
== END 2025-07-31 17:00 | disposition home or self-care (01) ==
LOC: Rad HDHVI 12:55
PROVIDERS: ATTEND Internal Medicine Cardiovascular Disease
DX: I49.3 Ventricular premature depolarization (principal); I49.1 Atrial premature depolarization; Z13.6 Encounter for screening for cardiovascular disorders; E11.9 Type 2 diabetes mellitus without complications; E78.00 Pure hypercholesterolemia, unspecified; R53.1 Weakness
CPT/HCPCS: 78452; 93017; A9500; J0153

== ENCOUNTER 2025-08-26 14:36 | Outpatient (CLI) | payer OTHER, MEDICAID ==
[2025-08-26 14:53] LABS: Hematocrit 30.4 % (36.0-46.0); Hemoglobin 9.6 g/dL (12.2-16.2); Mean Corpuscular Hemoglobin 23.7 pg (28.0-32.0); Mean Corpuscular Volume 75.5 fL (80.0-100.0); Nucleated Red Blood Cells % 0.1 %
[2025-08-26 15:50] LABS: Iron 64.0 ug/dL (50-170)
[2025-08-26 15:52] LABS: Total Iron Binding Capacity 375.0 ug/dL (250-425)
== END 2025-08-26 17:00 | disposition home or self-care (01) ==
LOC: LAB 14:36
PROVIDERS: ATTEND Nurse Practitioner Family
DX: D64.9 Anemia, unspecified (principal)
CPT/HCPCS: 36415; 83540; 83550; 85025

== ENCOUNTER 2025-09-23 14:49 | Outpatient (CLI) | payer OTHER, MEDICAID ==
[2025-09-23 15:10] LABS: Hemoglobin 9.2 g/dL (12.2-16.2)
[2025-09-23 15:12] LABS: Hematocrit 29.4 % (36.0-46.0); Mean Corpuscular Hemoglobin 24.3 pg (28.0-32.0); Mean Corpuscular Volume 77.5 fL (80.0-100.0); Nucleated Red Blood Cells % 0.1 %
[2025-09-23 15:50] LABS: Iron 136.0 ug/dL (50-170)
[2025-09-23 15:53] LABS: Total Iron Binding Capacity 371.0 ug/dL (250-425)
== END 2025-09-23 17:00 | disposition home or self-care (01) ==
LOC: LAB 14:49
PROVIDERS: ATTEND Nurse Practitioner Family
DX: D64.9 Anemia, unspecified (principal)
CPT/HCPCS: 36415; 83540; 83550; 85025